=== PATIENT | female | born 1985 | race African-American/Black ===

== ENCOUNTER 2020-07-15 12:41 | Outpatient (CLI) | payer OTHER, SELFPAY ==
--- NOTE | ~2020-07-15 | US_ITS ---
EXAMINATION: US pelvic complete w TV EXAM DATE: 07/15/2020 14:05 INDICATION: Pelvic pain. TECHNIQUE: Pelvic transabdominal and transvaginal sonogram was performed. There are multiple graysca le and Doppler images available for interpretation. There is no prior study for comparison. FINDINGS: Uterus measures 9.7 x 5.5 x 6.9 cm, and is morphologically normal. Endometrial stripe trace sures 7 mm, within normal limits. There are nabothian cysts. There is small free pelvic fluid. Right adnexa: The ovary measures 3.4 x 2.0 x 4.0 cm with multiple peripheral follicles. Ovarian vascu lar flow confirmed. Left adnexa: The ovary measures 3.5 x 2.0 x 2.3 cm with multiple peripheral follicles. Ovarian vascul ar flow confirmed. IMPRESSION: Multiple small ovarian follicles, correlate for possible polycystic ovarian disease. Reviewed, dictated and finalized at location B. [employer]DER [employer]IPPER
--- NOTE | ~2020-07-15 | US_ITS ---
EXAMINATION: US thyroid EXAM DATE: 07/15/2020 14:05 INDICATION: Thyromegaly. TECHNIQUE: Multiple grayscale and Doppler images of the thyroid were obtained (by a technologist who performed the scan) and subsequently reviewed. Individual nodules and recommendations may be reporte d in accordance with TI-RADS system as designated by the 2017 ACR White Paper TI-RADS committee. The re is no prior study for comparison. FINDINGS: Right thyroid lobe measures 5.3 x 1.9 x 1.9 cm, the left measuring 5.4 x 2.0 x 2.7 cm, mild thyromega ly. Relatively homogeneous echogenicity with hypervascular parenchyma. The isthmus is 5 mm in thickne ss. Possible focal left thyroid lobe nodule measuring 9 x 4 x 8 mm, solid (2 points), hypoechoic (2 point s), wider than tall, smooth margin, without echogenic foci, category TR4 for this region. IMPRESSION: 1. Hypervascular goiter. 2. Possible left thyroid 1 cm nodule not likely clinically significant. Reviewed, dictated and finalized at location B. CHAR PULLER
[2020-07-15 14:53] LABS: Thyroid Stimulating Hormone < 0.015 uIU/mL (0.465-4.680)
[2020-07-15 15:05] LABS: Free T4 Free Thyroxine 1.93 ng/mL (0.78-2.19)
== END 2020-07-15 12:42 | disposition home or self-care (01) ==
PROVIDERS: PCP Obstetrics & Gynecology Gynecology; Visit Provider Obstetrics & Gynecology Gynecology
DX: E04.8 Other specified nontoxic goiter (principal); R10.2 Pelvic and perineal pain; R93.89 Abnormal findings on diagnostic imaging of other specified body structures
CPT/HCPCS: 36415; 76536; 76830; 76856; 84439; 84443

== ENCOUNTER 2020-08-13 06:58 | Outpatient (NON) | payer OTHER, SELFPAY ==
[2020-08-13 18:22] LABS: SARS-CoV-2 RNA PCR Positive
== END 2020-08-13 06:59 ==
LOC: ANHCOVIDDT 07:20
PROVIDERS: Visit Provider Physician Assistant
DX: U07.1 COVID-19 (principal)
CPT/HCPCS: 87635; C9803; U0003

== ENCOUNTER → 2020-08-27 14:13 | Outpatient (CLI) | payer OTHER, SELFPAY ==
--- NOTE | ~2020-08-27 | XR_ITS ---
EXAMINATION: XR chest 2V 08/27/2020 14:42 INDICATION: Shortness of breath PROCEDURE: 2 view chest COMPARISON: No prior studies for comparison. FINDINGS: The lungs are clear. The cardiomediastinal silhouette is within normal limits. There are no pleural effusions. There is no pneumothorax suspected. IMPRESSION: 1: NO ACUTE CARDIOPULMONARY DISEASE. Reviewed, dictated and finalized at location A. 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
== END ==
PROVIDERS: Visit Provider Physician Assistant
DX: R06.02 Shortness of breath (principal)
CPT/HCPCS: 71046

== ENCOUNTER 2021-01-23 12:27 | Outpatient (CLI) | payer OTHER, SELFPAY ==
[2021-01-23 12:50] LABS: Hematocrit 38.8 % (37.0-47.0); Hemoglobin 12.7 g/dL (12.0-15.0); Mean Corpuscular HGB Conc 32.7 g/dl (32-36); Mean Corpuscular Hemoglobin 28.3 pg (26-34); Mean Corpuscular Volume 86.4 fl (80-100); Mean Platelet Volume 10.3 fl (7.4-10.4); Platelet Count Result 236 k/mm3 (150-375); Red Blood Count 4.49 M/mm3 (4.2-5.4); White Blood Count 4.4 K/mm3 (4.5-10.0)
[2021-01-23 13:01] LABS: Alanine Aminotransferase 40 U/L (4-35); Albumin Level 4.6 g/dL (3.5-5.1); Alkaline Phosphatase 156 U/L (38-126); Anion Gap 7 mmol/L (8-16); Aspartate Amino Transferase 45 U/L (14-36); Bilirubin,Total 0.3 mg/dL (0.2-1.3); Blood Urea Nitrogen 11 mg/dL (7-17); Calcium 10.5 mg/dL (8.4-10.2); Carbon Dioxide 28 mmol/L (22-30); Chloride 103 mmol/L (98-107); Estimated Glomerular Filt Rate > 60; Glucose 117 mg/dL (65-105); Sodium 138 mmol/L (137-145)
[2021-01-23 13:43] LABS: Free T4 Free Thyroxine 3.96 ng/mL (0.78-2.19)
[2021-01-23 13:57] LABS: Thyroid Stimulating Hormone Reflex < 0.015 uIU/mL (0.465-4.68)
[2021-01-23 13:59] LABS: Eosinophils Absolute Manual 0.08 K/mm3 (0.02-0.5); Eosinophils Percent Manual 2 % (0-4); Lymphocytes Absolute Manual 2.77 K/mm3 (1.1-4.5); Monocytes Absolute Manual 0.17 K/mm3 (0.1-0.90); Monocytes Percent Manual 4 % (3-9); Neutrophils Percent Manual 16 % (46-73); Platelet Estimate Adequate (Adequate); Total Cells Counted 100
[2021-01-23 14:00] LABS: Atypical Lymphocytes Present
[2021-01-23 15:11] LABS: Free T4 Free Thyroxine Reflex 3.95 ng/dL (0.78-2.19)
[2021-01-27 06:08] LABS: Thyroid Peroxidase Antibodies <1 IU/mL (<9)
== END 2021-01-23 12:28 | disposition home or self-care (01) ==
LOC: ANHLAB 12:29
PROVIDERS: PCP Family Medicine; Visit Provider Physician Assistant
DX: E04.9 Nontoxic goiter, unspecified (principal); F41.1 Generalized anxiety disorder; F43.0 Acute stress reaction; G43.909 Migraine, unspecified, not intractable, without status migrainosus; R79.89 Other specified abnormal findings of blood chemistry
CPT/HCPCS: 36415; 80053; 84439; 84443; 85025; 86376

== ENCOUNTER → 2021-03-10 00:12 | Outpatient (CLI) | payer SELFPAY ==
[2021-03-10 17:12] LABS: SARS-CoV-2 RNA PCR Negative
== END ==
PROVIDERS: PCP Family Medicine; Visit Provider Internal Medicine Gastroenterology
DX: Z01.812 Encounter for preprocedural laboratory examination (principal); Z20.822 Contact with and (suspected) exposure to COVID-19
CPT/HCPCS: C9803; U0003; U0005

== ENCOUNTER 2021-03-13 00:11 | Day surgery (SDC) | payer OTHER, SELFPAY ==
[2021-02-26 10:34] VITALS: BMI 23.4
[2021-03-13 11:24] VITALS: BP 125/76; PULSE 90; RESP 16; TEMP 36.7; O2SAT 100
[2021-03-13] MEDS: LACTATED RINGERS 1,000 ML 150 ML IV CONT (11:27)
--- NOTE | 2021-03-13 12:00 | PM.HPGS ---
History of Present Illness History of Present Illness Consent: Risks, benefits, and alternatives have been discussed and questions answered. Patient agrees to proceed with procedure. Chief complaint: dysphagia Narrative: Mary Esposito is a 35 year old female with intermittent difficulty swallowing and sore throat but now better, never had egd Review of Systems Constitutional: Constitutional: Denies headache(s) and Denies weakness Eyes: Eyes: Denies blurry vision ENT: Reports Normal hearing present, Denies headache(s) and Denies neck pain Cardiovascular: Cardiovascular: Denies chest pain and Denies dyspnea Respiratory: Respiratory: Denies dyspnea Gastrointestinal: Gastrointestinal: Reports no additional gastrointestinal complaints Genitourinary: Genitourinary: Denies dysuria Musculoskeletal: Musculoskeletal: Denies neck pain Integumentary/Breasts: Skin/Breast: Denies dry skin Neurologic: Reports Normal hearing present, Denies headache(s) and Denies weakness Psychiatric: Psychiatric: Denies anxiety Endocrine: Endocrine: Denies change in body appearance Hematologic/Lymphatic: Hematologic/Lymphatic: Denies easy bleeding Allergic/Immunologic: Allergic/Immunologic: Denies urticaria PMFSH Past Medical History Medical History (Updated 03/13/21 @ 12:01 by Paul Lowe MD) Chiari malformation type I Migraines Throat burning Family History Family History Father Family history of alcoholism Family history of liver disease, Onset Age: 46 Patient's father is Mother Carcinoma of colon, Onset Age: 33 Sibling Family history of malignant neoplasm of testis, Onset Age: 28 Social History Social History (Updated 01/12/21 @ 15:15 by Ev Stern [facility]) Social History: Smoking status: Never smoker Second hand tobacco smoke exposure: No Alcohol intake: current Drinks per week: 2 Alcohol use details: Socially Substance use: never Substance use type: does not use Living arrangements: with family Gender identity (if verbalized by the patient): Female Spiritual care concerns: No Meds Home Medications and Allergies Home Medications Medication Instructions Recorded Confirmed Type alprazolam 0.25 mg tablet 0.25 mg PO BID PRN #14 tablet 01/12/21 03/13/21 Rx methimazole 5 mg tablet 5 mg PO DAILY #30 tablet 01/30/21 03/13/21 Rx butalbital 50 mg-acetaminophen 325 1 cap PO Q8H PRN #60 cap 03/01/21 Rx mg-caffeine 40 mg-codeine 30 mg cap Allergies Allergy/AdvReac Type Severity Reaction Status Date / Time iodine Allergy Intermediate SWELLING Verified 03/13/21 11:22 Vital Signs Vital Signs - 24 hr 03/13/21 11:24 Temperature 98.1 F Pulse Rate 90 Respiratory Rate 16 Blood Pressure 125/76 Pulse Oximetry 100 Exam Const: General: comfortable and no acute distress HENMT: General nose exam: Normal nares present Eyes: General: appearance normal, both eyes and all related structures Neck: Neck: no JVD Resp: Auscultation: clear to auscultation bilaterally Cardio: Rate: regular rate Rhythm: regular rhythm GI: Inspection: non-distended GI Palp: Yes Soft to palpation Skin: General skin exam: normal color Neuro: General: gait normal Speech: normal speech Extrem: General: normal to inspection Psych: Mental Status: mental status grossly normal Assessment and Plan Assessment and plan (1) Throat burning: Code(s): R07.0 - Pain in throat Status: Acute Assessment and Plan: egd with bx
--- NOTE | 2021-03-13 12:02 | WPDANESEPPF ---
Anes - Initial Pre Proc Eval Procedure: Operation Date: 03/13/21 12:15 Proposed Procedures p Esophagogastroduodenoscopy - Paul Lowe MD Date/Time: 03/13/21 12:02 Surgeon: Paul Lowe MD Pre Op Diagnosis: dysphagia Patient Data Age: 35 Gender: F Height: 1.6 m Weight: 62.6 kg Last Vital Signs Temp 98.1 F 03/13/21 11:24 Pulse 90 03/13/21 11:24 Resp 16 03/13/21 11:24 BP 125/76 03/13/21 11:24 Pulse Ox 100 03/13/21 11:24 Allergies Allergy/AdvReac Type Severity Reaction Status Date / Time iodine Allergy Intermediate SWELLING Verified 03/13/21 11:22 Home Medications Medication Instructions Recorded Confirmed Type alprazolam 0.25 mg tablet 0.25 mg PO BID PRN #14 tablet 01/12/21 03/13/21 Rx methimazole 5 mg tablet 5 mg PO DAILY #30 tablet 01/30/21 03/13/21 Rx butalbital 50 mg-acetaminophen 325 1 cap PO Q8H PRN #60 cap 03/01/21 Rx mg-caffeine 40 mg-codeine 30 mg cap Patient hx anesthesia problems: none Family hx anesthesia problems: none PMFSH Past Medical History Medical History (Updated 03/13/21 @ 12:01 by Paul Lowe MD) Chiari malformation type I Migraines Throat burning Family History Family History Father Family history of alcoholism Family history of liver disease, Onset Age: 46 Patient's father is Mother Carcinoma of colon, Onset Age: 33 Sibling Family history of malignant neoplasm of testis, Onset Age: 28 Social History Social History (Updated 01/12/21 @ 15:15 by Ev Stern CMA) Social History: Smoking status: Never smoker Second hand tobacco smoke exposure: No Alcohol intake: current Drinks per week: 2 Alcohol use details: Socially Substance use: never Substance use type: does not use Living arrangements: with family Gender identity (if verbalized by the patient): Female Spiritual care concerns: No Anes - Eval Final PreProcedure Day of Procedure 03/13/21 12:02 Patient weight: normal Heart: regular rate and rhythm Lungs: clear to auscultation Airway: Mallampati scale class II Neurological: alert and oriented Last oral intake: >/= 8 hours ASA classification: II Emergent: no Anesthetic plan: proceed Anesthesia type and monitoring: general GIVS and standard monitoring Informed Consent: The patient's anesthetic plan and its attendant risks and benefits were discussed with the patient/family/POA. Questions were solicited and answers provided to the satisfaction of the patient/family/POA.
[2021-03-13 12:21] VITALS: BP 110/56; PULSE 97; RESP 18; O2SAT 100
[2021-03-13 12:31] VITALS: BP 101/51; PULSE 82; RESP 16; O2SAT 100
[2021-03-13 12:41] VITALS: BP 115/67; PULSE 78; RESP 19; O2SAT 100
== END 2021-03-13 12:45 | disposition home or self-care (01) ==
PROVIDERS: PCP Family Medicine; Visit Provider Internal Medicine Gastroenterology
PROC: 0DJ08ZZ Inspection of Upper Intestinal Tract, Via Natural or Artificial Opening Endoscopic (ICD-10-PCS; CPT 43235; principal; 2021-03-13 12:15)
DX: F45.8 Other somatoform disorders (principal); R07.0 Pain in throat; G93.5 Compression of brain
CPT/HCPCS: 43239; 88305; J2405; J2704; J7120

== ENCOUNTER 2021-07-16 00:18 | Day surgery (SDC) | payer OTHER, SELFPAY ==
[2021-07-08 14:13] VITALS: BMI 23.3
[2021-07-16] VITALS (9 sets, daily range): BP systolic 128–152; BP diastolic 68–82; PULSE 93–118; RESP 13–20; TEMP 37.2; O2SAT 99–100; BMI 24.7
[2021-07-16] MEDS: LACTATED RINGERS 1,000 ML 30 ML IV CONT ×2 (14:00→15:46)
--- NOTE | 2021-07-16 14:12 | P.PNAN_ITS ---
Anes - Initial Pre Proc Eval Procedure: Operation Date: 07/16/21 15:00 Proposed Procedures p Bilateral Breast Augmentation - Fred Baugh MD Date/Time: 07/16/21 14:12 Surgeon: Fred Baugh MD Pre Op Diagnosis: micromastia Patient Data Age: 35 Gender: F Height: 1.6 m Weight: 63.2 kg Last Vital Signs Pulse 93 07/16/21 13:15 Resp 16 07/16/21 13:15 BP 135/73 07/16/21 13:15 Pulse Ox 100 07/16/21 13:15 Allergies Allergy/AdvReac Type Severity Reaction Status Date / Time iodine Allergy Intermediate SWELLING Verified 07/16/21 13:27 Home Medications Medication Instructions Recorded Confirmed Type butalbital 50 mg-acetaminophen 300 1 cap PO Q8H PRN #30 cap 06/25/21 07/08/21 Rx mg-caffeine 40 mg-codeine 30 mg cap hydroxyzine HCl 25 mg tablet 25 mg PO TID PRN #90 tablet 06/25/21 07/08/21 Rx methimazole 10 mg tablet 10 mg PO DAILY #30 tablet 06/25/21 07/08/21 Rx docusate sodium 100 mg capsule 100 mg PO DAILY #14 cap 07/14/21 Rx ondansetron HCl 4 mg tablet 4 mg PO Q8H #21 tablet 07/14/21 Rx carisoprodol 350 mg tablet 350 mg PO TID PRN #21 tablet 07/15/21 07/15/21 Rx oxycodone-acetaminophen 5 mg-325 1 tablet PO Q6H PRN #15 tablet 07/15/21 07/15/21 Rx mg tablet Patient hx anesthesia problems: none Family hx anesthesia problems: none Results Review: All pre-operative results and documents have been reviewed as part of the pre-operative evaluation. [facility] Past Medical History Medical History (Updated 07/16/21 @ 14:14 by Farhad Henriquez MD) Chiari malformation type I Graves disease Hyperthyroidism Migraines Throat burning Family History Family History Father Family history of alcoholism Family history of liver disease, Onset Age: 46 Patient's father is Mother Carcinoma of colon, Onset Age: 33 Sibling Family history of malignant neoplasm of testis, Onset Age: 28 Social History Social History Social History: Smoking status: Never smoker Second hand tobacco smoke exposure: No Alcohol intake: current Alcohol use details: Socially Substance use: never Substance use type: does not use Living arrangements: with family Gender identity (if verbalized by the patient): Female Sexual Orientation (if Verbalized by the Patient): Straight or Heterosexual Spiritual care concerns: No Anes - Eval Final PreProcedure Day of Procedure 07/16/21 14:12 Patient weight: normal Heart: regular rate and rhythm Lungs: clear to auscultation and normal air movement Airway: Mallampati scale class II Neurological: alert and oriented Last oral intake: >/= 8 hours ASA classification: II Emergent: no Anesthetic plan: proceed Anesthesia type and monitoring: general Results Review: All pre-operative results and documents have been reviewed as part of the pre-operative evaluation. Informed Consent: The patient's anesthetic plan and its attendant risks and benefits were discussed with the patient/family/POA. Questions were solicited and answers provided to the satisfaction of the patient/family/POA.
--- NOTE | 2021-07-16 14:12 | WPDHPUPDATE1 ---
History and Physical Update Update Date/Time: 07/16/21 14:12 History and Physical has been reviewed, including an updated exam of the patient. There are NO changes in the patient's condition. Risks, benefits, and alternatives have been discussed and questions answered. Patient agrees to proceed with procedure.
--- NOTE | 2021-07-16 14:12 | W.PM.PROC2 ---
Procedure Note - Detailed Date of Procedure 07/16/21 Pre-op Diagnosis micromastia Post-op Diagnosis same Procedure Performed Bilateral Augmentation Mammaplasty Surgeon Ferd Baugh MD Anesthesia general Findings Bilateral Dual Plane 2 Augmentation Mammaplasty [facility] Soft Touch Silicone implants 405 cc Right - REF# [id number] SN [id number] Left - REF# [id number] SN [id number] Description of Procedure She is here today for bilateral breast augmentation. Previously and again today the risks, benefits, alternatives were discussed in extensive detail. I wanted her to be very realistic about the risks involved as well as expectations. We discussed aftercare and what to monitor for. Made sure answered all of her questions to her satisfaction today and consent was obtained. Marked in the preoperative holding area with their verification. The patient was taken to the operating room placed supine on the operating table. Anesthesia was provided by anesthesiology. A surgical time-out was taken. We cleansed the skin and 1% lidocaine and 0.25% Marcaine with epinephrine was used anesthetize as a field block. She was prepped and draped in a standard sterile fashion. Tegaderm nipple Holguin were placed. A 15 blade used to make an incision along the inframammary fold. Dissection was continued at 45 degree angle until the chest wall as identified. I incised the pectoralis major along its inferior border and completely released the inferior border leaving the medial border intact. I created a subpectoral pocket in the appropriate dimensions based on our preoperative planning for the implant. I then copiously irrigated with saline solution and verified a strict hemostasis. Next I used phase one solution to irrigate the pocket and allowed it to sit in the pocket. I washed my gloves with it was well. We washed the implant immediately upon opening it with this solution and only opened it when we needed it. I used implant funnel and no-touch technique. The implant was introduced into the pocket using the funnel. Having verified positioning of the implant this was closed using 2-0 Vicryl followed by 3-0 Monocryl in a running subcuticular 4-0 Monocryl followed by tissue glue. Fluffs, Arvind wrap, and surgical bra were placed. Patient was awoke and taken to PACU without difficulty. All instrument sponge counts were correct at the end of the case. Estimated Blood Loss 20 Drains No Packing No Pathology none sent Complications No immediate complications Condition stable Disposition PACU
[2021-07-16] MEDS: ceFAZolin 2 GM/D5W 50 ML 2 GM/50 ML BAG IVPB (14:40)
[2021-07-16] MEDS: LIDO 1%/EPINEPHRINE 1:100,000 50 ML VIAL 30 ML INFILTRATE (14:40)
[2021-07-16] MEDS: TRANEXAMIC ACID 1,000MG/ISO100 1,000 MG/100 ML BAG 200 MG IVPB (14:49)
--- NOTE | 2021-07-16 15:30 | SUR.OPER ---
breast implants [place] Soft Touch Breast Implant [facility] 405cc, ref [facility]-405, sn [id number], sn [id number].
--- NOTE | 2021-07-16 15:33 | SUR.OPER ---
BILATERAL BREAST IMPLANT EXPIRATION DATE 2026-01-05 (SAME EXPIRATION DATES)
[2021-07-16] MEDS: fentaNYL CITRATE INJ (*CRX) 100 MCG/2 ML VIAL 25 MCG IV PUSH ×4 (16:09→16:31)
[2021-07-16] MEDS: oxyCODONE HCL (*CRX) 5 MG TAB IR PO (17:07)
== END 2021-07-16 17:48 | disposition home or self-care (01) ==
PROVIDERS: PCP Family Medicine; Visit Provider Surgery Plastic and Reconstructive Surgery
PROC: (CPT 19325; principal; 2021-07-16 15:00)
DX: Z41.1 Encounter for cosmetic surgery (principal); N64.82 Hypoplasia of breast; G93.5 Compression of brain; E05.00 Thyrotoxicosis with diffuse goiter without thyrotoxic crisis or storm
CPT/HCPCS: 19325; A9270; J0690; J1100; J1580; J2250; J2405; J2704; J3010; J7120

== ENCOUNTER → 2021-10-06 08:45 | Outpatient (CLI) | payer OTHER, SELFPAY ==
[2021-10-06 19:07] LABS: SARS-CoV-2 RNA PCR Negative
== END ==
PROVIDERS: PCP Family Medicine; Visit Provider Nurse Practitioner Gerontology
DX: R68.89 Other general symptoms and signs (principal); Z20.822 Contact with and (suspected) exposure to COVID-19
CPT/HCPCS: C9803; U0003; U0005

== ENCOUNTER 2022-03-23 13:35 | Outpatient (CLI) | payer OTHER, SELFPAY ==
[2022-03-23 13:49] LABS: Basophils Percent Auto 0.8 % (0.2-1.2); Eosinophils Percent Auto 0.2 % (0-4.4); Hematocrit 37.2 % (37.0-47.0); Hemoglobin 12.2 g/dL (12.0-15.0); Lymphocytes Absolute Auto 3.02 K/mm3 (0.9-3.2); Lymphocytes Percent Auto 57.9 % (18.3-44.2); Mean Corpuscular HGB Conc 32.8 g/dl (32-36); Mean Corpuscular Hemoglobin 28.8 pg (26-34); Mean Corpuscular Volume 87.9 fl (80-100); Mean Platelet Volume 9.9 fl (7.4-10.4); Monocytes Absolute Auto 0.5 K/mm3 (0.1-0.6); Monocytes Percent Auto 9.8 % (2.6-8.5); Neutrophils Absolute Auto 1.6 K/mm3 (1.3-6.7); Neutrophils Percent Auto 31.3 % (45.5-73.1); Platelet Count Result 276 k/mm3 (150-375); Red Blood Count 4.23 M/mm3 (4.2-5.4); White Blood Count 5.2 K/mm3 (4.5-10.0)
[2022-03-23 14:48] LABS: Free T4 Free Thyroxine 3.14 ng/mL (0.78-2.19)
[2022-03-23 16:17] LABS: Alanine Aminotransferase 28 U/L (6-35); Albumin Level 4.5 g/dL (3.5-5.1); Alkaline Phosphatase 160 U/L (38-126); Anion Gap 9 mmol/L (8-16); Aspartate Amino Transferase 25 U/L (14-36); Bilirubin,Total 0.2 mg/dL (0.2-1.3); Blood Urea Nitrogen 14 mg/dL (7-17); Calcium 9.7 mg/dL (8.4-10.2); Carbon Dioxide 22 mmol/L (22-30); Chloride 107 mmol/L (98-107); Estimated Glomerular Filt Rate > 60; Glucose 104 mg/dL (65-110); Potassium 4.3 mmol/L (3.4-5.0); Sodium 138 mmol/L (137-145)
[2022-03-23 16:51] LABS: Thyroid Stimulating Hormone < 0.015 uIU/mL (0.465-4.680); Total Triiodothyronine (T3) 2.39 NG/ML (0.97-1.69)
== END 2022-03-23 13:36 | disposition home or self-care (01) ==
PROVIDERS: PCP Family Medicine; Visit Provider Family Medicine
DX: E05.00 Thyrotoxicosis with diffuse goiter without thyrotoxic crisis or storm (principal); G43.909 Migraine, unspecified, not intractable, without status migrainosus; G89.29 Other chronic pain
CPT/HCPCS: 36415; 80053; 84439; 84443; 84480; 85025

== ENCOUNTER → 2022-04-05 09:20 | Outpatient (CLI) | payer OTHER, SELFPAY ==
--- NOTE | ~2022-04-05 | US_ITS ---
EXAMINATION: US pelvic complete w TV DATE: 04/05/2022 10:30 INDICATION: Bilateral pelvic pain Comparison:No prior studies for comparison. TECHNIQUE: Multiple transabdominal and endovaginal sonographic images of the pelvis performed. FINDINGS: The uterus measures 9.5 x 6 x 6.4 cm. There is a uterine fibroid posteriorly measuring 2.3 x 1.9 x 1.5 cm. There is a nabothian cysts. The endometrial complex measures 10 mm. The right ovary measures 4.6 x 2.4 x 2.6 cm and the left ovary measures 3.5 x 1.7 x 1.8 cm. There is a right ovary cyst measuring 1.7 cm. There are small follicles in each ovary. Normal doppler signal i n both ovaries. There is no free fluid in the pelvis. There are no abnormal masses seen on either side. IMPRESSION: 1. Uterine fibroid located posteriorly measuring 2.3 cm maximum dimension. 2: Right ovarian cyst measuring 1.7 cm. Reviewed, dictated and finalized at location A.
== END ==
LOC: EXPGOSH 04-06 10:52 → EXPGOSHRAD 04-09 14:42
PROVIDERS: PCP Family Medicine; Visit Provider Nurse Practitioner
DX: R10.2 Pelvic and perineal pain (principal); N83.201 Unspecified ovarian cyst, right side; D25.9 Leiomyoma of uterus, unspecified
CPT/HCPCS: 76830; 76856

== ENCOUNTER 2022-06-09 15:26 | Outpatient (CLI) | payer OTHER, SELFPAY ==
--- NOTE | ~2022-06-09 | MR_ITS ---
EXAMINATION: MR brain/brain stem wo con DATE: 06/09/2022 16:18 INDICATION: Headache. TECHNIQUE: Magnetic resonance imaging (MRI) of the brain and brainstem was performed without intraven ous contrast. COMPARISON: Brain MRI 10/12/2017 FINDINGS: The cerebellar tonsils extend 6 mm inferior to foramen magnum, consistent with grade 1 malf ormation. There is no intracranial hemorrhage, acute infarction, or abnormal intracranial mass lesion . There are scattered areas of nonspecific increased T2-weighted signal intensity in the cerebral whi te matter, which is within normal limits for the patient's age. The ventricles are normal in size. Th e paranasal sinuses are clear. The orbits are normal. The mastoid air cells are normal. . IMPRESSION: 1. Chiari 1 malformation. Reviewed, dictated and finalized at location A. IMPRESSION: 1. Chiari 1 malformation.
== END 2022-06-09 15:27 ==
PROVIDERS: PCP Family Medicine; Visit Provider Family Medicine
DX: G93.5 Compression of brain (principal)
CPT/HCPCS: 70551

== ENCOUNTER 2022-06-11 14:06 | Emergency (ER) | payer OTHER, SELFPAY ==
[2022-06-11 14:23] VITALS: BP 123/64; PULSE 87; RESP 16; TEMP 36.7; O2SAT 100
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
== END 2022-06-11 15:10 | disposition short-term general hospital (02) ==
PROVIDERS: Emergency Provider Nurse Practitioner; PCP Family Medicine
DX: R51.9 Headache, unspecified (principal); M54.6 Pain in thoracic spine; V43.52XA Car driver injured in collision with other type car in traffic accident, initial encounter; G93.5 Compression of brain; E05.00 Thyrotoxicosis with diffuse goiter without thyrotoxic crisis or storm; E05.90 Thyrotoxicosis, unspecified without thyrotoxic crisis or storm
CPT/HCPCS: 99212; G0463

== ENCOUNTER 2022-06-11 16:08 | Emergency (ER) | payer OTHER, SELFPAY ==
--- NOTE | ~2022-06-11 | CT_ITS ---
EXAMINATION: CT brain wo con INDICATION: Headache COMPARISON: None TECHNIQUE: Standard unenhanced head CT. The dose-length product (DLP) was 605.33 mGy-cm. The mA was a djusted according to patient size. Iterative reconstruction technique was employed. FINDINGS: There is no intracranial hemorrhage, acute infarction, or abnormal mass lesion. The ventric les are normal. There is no abnormal mass effect or midline shift. The vyas-white matter differentiat ion is normal. The basal cisterns are patent. The orbits are normal. The paranasal sinuses, mastoids and calvarium are normal. IMPRESSION: 1. No acute intracranial abnormality. Reviewed, dictated and finalized at location A.
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
--- NOTE | ~2022-06-11 | CT_ITS ---
EXAMINATION: CT cervical spine wo con DATE: 06/11/2022 17:05 INDICATION: Neck pain TECHNIQUE: Computed tomography (CT) of the cervical spine was performed without intravenous contrast. The dose-length product (DLP) was 228.12 mGy-cm. Automated exposure control and iterative reconstruc tion technique were employed. COMPARISON: None FINDINGS: There is reversal of the normal cervical lordosis. There is no fracture, dislocation, or avila bluxation. The vertebral body heights, alignment, and intervertebral disc spaces are normal. The para vertebral soft tissues are unremarkable. IMPRESSION: 1. No acute osseous abnormality. Reviewed, dictated and finalized at location A.
[2022-06-11 16:14] VITALS: BP 136/72; PULSE 97; RESP 16; TEMP 36.6; O2SAT 98
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
[2022-06-11] MEDS: diazePAM INJ (*CRX) 10 MG/2 ML SYRINGE 5 MG IM (16:38)
== END 2022-06-11 17:56 | disposition home or self-care (01) ==
LOC: ANHED 17:52
PROVIDERS: Emergency Provider Emergency Medicine; PCP Family Medicine
DX: S09.90XA Unspecified injury of head, initial encounter (principal); S16.1XXA Strain of muscle, fascia and tendon at neck level, initial encounter; V49.40XA Driver injured in collision with unspecified motor vehicles in traffic accident, initial encounter; E05.00 Thyrotoxicosis with diffuse goiter without thyrotoxic crisis or storm; G93.5 Compression of brain
CPT/HCPCS: 70450; 72125; 72128; 81025; 96372; 99284; J3360

== ENCOUNTER 2022-06-14 11:33 | Outpatient (CLI) | payer OTHER, SELFPAY ==
[2022-06-14 13:18] LABS: Thyroid Stimulating Hormone < 0.015 uIU/mL (0.465-4.680); Total Triiodothyronine (T3) 2.59 NG/ML (0.97-1.69)
[2022-06-14 13:38] LABS: Free T4 Free Thyroxine 3.23 ng/mL (0.78-2.19)
== END 2022-06-14 11:34 | disposition home or self-care (01) ==
LOC: ANHLAB 11:35
PROVIDERS: PCP Family Medicine; Visit Provider Physician Assistant
DX: E03.9 Hypothyroidism, unspecified (principal)
CPT/HCPCS: 36415; 84439; 84443; 84480

== ENCOUNTER 2022-09-30 07:00 | Outpatient (CLI) | payer OTHER, SELFPAY ==
[2022-10-01 11:45] LABS: Total Triiodothyronine (T3) 2.28 NG/ML (0.97-1.69)
[2022-10-05 21:18] LABS: Prolactin 16.1 ng/mL (***)
== END 2022-09-30 07:01 | disposition home or self-care (01) ==
PROVIDERS: PCP Family Medicine; Visit Provider Family Medicine
DX: G89.29 Other chronic pain (principal); R51.9 Headache, unspecified; R79.89 Other specified abnormal findings of blood chemistry; E03.9 Hypothyroidism, unspecified; Z12.11 Encounter for screening for malignant neoplasm of colon
CPT/HCPCS: 36415; 84146; 84480

== ENCOUNTER 2022-11-23 21:22 | Emergency (ER) | payer OTHER, SELFPAY ==
--- NOTE | ~2022-11-23 | XR_ITS ---
EXAMINATION: XR chest 2V Exam Date/Time: 11/23/2022 22:01 CDT HISTORY: L.SIDE CHEST ARM PAIN, NECK PAIN FOR 1 DAY Comparison: 08/27/2020. RESULT: Lines, tubes, and devices: Bilateral breast augmentation. Lungs and pleura: Clear. Cardiomediastinal silhouette: Stable. Other: No acute osseous or upper abdominal finding. IMPRESSION: No acute cardiopulmonary process. Reviewed, dictated and finalized at location K.
--- NOTE | 2022-11-23 21:26 | ECG_ITS ---
Measurements Intervals [place] Rate: 85 P: 62 HI: 180 QRS: 32 QRSD: 89 T: 18 QT: 359 QTc: 428 Interpretive Statements SINUS RHYTHM NONSPECIFIC T-WAVE ABNORMALITY- ANTERIOR LEADS BORDERLINE ECG NO PREVIOUS ECG AVAILABLE FOR COMPARISON Electronically Signed On 11-24-2022 6:41:56 CDT by Dave Villarreal D.O.
[2022-11-23 21:56] VITALS: BP 128/83; PULSE 84; RESP 16; TEMP 37.1; O2SAT 100
[2022-11-23 23:36] VITALS: BP 124/66; PULSE 78; RESP 16; O2SAT 100
--- NOTE | 2022-11-24 01:24 | PC.NURSE ---
0120 - Attempted to take labs, pt discovered gone.
== END 2022-11-24 01:24 | disposition left against medical advice (07) ==
LOC: ANHED 11-24 01:31
PROVIDERS: Emergency Provider Emergency Medicine
DX: R07.9 Chest pain, unspecified (principal)
CPT/HCPCS: 71046; 93005; 99199

== ENCOUNTER 2022-12-01 03:12 | Emergency (ER) | payer OTHER, SELFPAY ==
[2022-12-01] VITALS (11 sets, daily range): BP systolic 108–148; BP diastolic 63–83; PULSE 68–89; RESP 16–23; TEMP 36.9; O2SAT 98–100
--- NOTE | ~2022-12-01 | XR_ITS ---
Clinical Indication: Chest pain PA and lateral views of the chest: Comparison: 11/23/2022 Findings: The lungs are clear, without evidence of focal consolidation or pleural effusion. Cardiome diastinal silhouette is within normal limits. Bones and soft tissues are unremarkable. Impression: Normal chest. Reviewed, dictated and finalized at location . Impression: Normal chest.
--- NOTE | 2022-12-01 03:26 | ECG_ITS ---
Measurements Intervals [place] Rate: 76 P: 54 HI: 182 QRS: 28 QRSD: 96 T: 27 QT: 383 QTc: 433 Interpretive Statements SINUS RHYTHM INCOMPLETE RIGHT BUNDLE BRANCH BLOCK BASELINE ARTIFACT- III, AVF, V3-V5 BORDERLINE ECG COMPARED TO ECG 11/23/2022 21:55:35 NO SIGNIFICANT CHANGES Electronically Signed On 12-01-2022 6:42:16 CDT by Dave Villarreal D.O.
--- NOTE | 2022-12-01 05:10 | ED.CHESTPAIN ---
HPI - Chest Pain General Chief Complaint: Chest Pain Stated Complaint: shoulder pain Time Seen by Provider: 12/01/22 04:22 History of Present Illness HPI narrative: This is a 37-year-old female with past medical history of hypothyroidism, who presents the emergency department complaining of chest pain for the past 6 hours. She states the pain is sharp, rated 6/10, located in the left upper chest with radiation to the left shoulder. It is exacerbated by deep breathing and lying on either side and has no obvious alleviating factors. Related Data Home Medications Medication Instructions Recorded Confirmed methimazole 10 mg tablet 10 mg PO DAILY 11/25/22 11/25/22 Allergies Allergy/AdvReac Type Severity Reaction Status Date / Time iodine Allergy Intermediate SWELLING Verified 11/25/22 15:02 shellfish derived Allergy Intermediate Swelling Verified 11/25/22 15:02 Review of Systems Review of Systems: CONSTITUTIONAL: Denies fever, chills, or sweats. EYES: Denies visual changes, redness, or discharge. ENT: Denies rhinorrhea, congestion, sore throat, or otalgia. CARDIOVASCULAR: Left-sided chest pain denies palpitations, or edema. RESPIRATORY: Denies cough or dyspnea. GASTROINTESTINAL: Denies abdominal pain, nausea, vomiting, or diarrhea. GENITOURINARY: Denies dysuria or hematuria. SKIN: Denies rash or itching. MUSCULOSKELETAL: Denies back pain, joint pain, or myalgia. NEUROLOGIC: Denies headache, numbness, dizziness, or weakness. PSYCHIATRIC: Denies anxiety or depression. [facility] Past Medical History Medical History Acute sore throat Elevated prolactin level Graves disease Hyperthyroidism Laryngitis Pharyngitis Tension headache Surgical History Surgical History H/O breast augmentation Family History Family History Father Family history of alcoholism Family history of liver disease, Onset Age: 46 Patient's father is Mother Carcinoma of colon, Onset Age: 33 Sibling Family history of malignant neoplasm of testis, Onset Age: 28 Social History Social History Social History: Smoking status: Never smoker Second hand tobacco smoke exposure: No Alcohol intake: current Alcohol use details: Socially Substance use: never Substance use type: does not use Lack of Transportation: No Lack of Food: Never True Current Housing: I Have Housing Concerned About Future Housing: No Difficulty Paying Gas/Electric Bills: No Difficulty Paying for Meds: No Currently Unemployed: No Education: Decline to Answer Difficulty w/ Childcare or Family Care: No Living arrangements: with family Occupation/Education: occupation Gender identity (if verbalized by the patient): Female Sexual Orientation (if Verbalized by the Patient): Straight or Heterosexual Spiritual care concerns: No Exam Narrative: GENERAL: Well-appearing, well-nourished, and in no acute distress. HEAD: Normocephalic, atraumatic. EYES: PERRLA and EOMI. ENT: Nares clear, no rhinorrhea or epistaxis. Mucous membranes moist. Oropharynx without tonsillar hypertrophy exudate or other lesions. NECK: Supple. No adenopathy or masses. No carotid bruits or JVD CHEST: Clear to auscultation. No respiratory distress. No wheezes rales or rhonchi. Nontender to palpation HEART: Regular rate and rhythm. No murmur heard. Normal peripheral pulses. ABDOMEN: Soft, nontender, nondistended, normal active bowel sounds. EXTREMITIES: Normal range of motion. No edema. No noted tenderness with palpation of the left shoulder or with range of motion of the left shoulder SKIN: Warm, dry, no rash. NEURO: No focal deficits. Alert and oriented x3. PSYCH: Normal mood and affect. Course Course Emergency C
[2022-12-01 06:13] LABS: Basophils Percent Auto 0.3 % (0.2-1.2); Eosinophils Absolute Auto 0.1 K/mm3 (0-0.3); Eosinophils Percent Auto 1.1 % (0-4.4); Hemoglobin 11.1 g/dL (12.0-15.0); Immature Granulocyte Absolute 0.02 K/mm3 (0.00-0.031); Immature Granulocyte Percent A 0.3 % (0-0.5); Lymphocytes Absolute Auto 3.38 K/mm3 (0.9-3.2); Lymphocytes Percent Auto 47.9 % (18.3-44.2); Mean Corpuscular HGB Conc 33.6 g/dl (32-36); Mean Corpuscular Hemoglobin 29.3 pg (26-34); Mean Corpuscular Volume 87.1 fl (80-100); Mean Platelet Volume 9.9 fl (7.4-10.4); Monocytes Absolute Auto 0.7 K/mm3 (0.1-0.6); Monocytes Percent Auto 10.2 % (2.6-8.5); Neutrophils Absolute Auto 2.8 K/mm3 (1.3-6.7); Neutrophils Percent Auto 40.2 % (45.5-73.1); Platelet Count Result 272 k/mm3 (150-375); Red Blood Count 3.79 M/mm3 (4.2-5.4); Red Cell Distribution Width 12.3 % (11.5-14.5); White Blood Count 7.1 K/mm3 (4.5-10.0)
[2022-12-01 06:20] LABS: Alanine Aminotransferase 25 U/L (6-35); Albumin Level 4.1 g/dL (3.5-5.1); Alkaline Phosphatase 106 U/L (38-126); Anion Gap 4 mmol/L (8-16); Aspartate Amino Transferase 25 U/L (14-36); Bilirubin,Total 0.5 mg/dL (0.2-1.3); Blood Urea Nitrogen 10 mg/dL (7-17); Calcium 9.3 mg/dL (8.4-10.2); Carbon Dioxide 26 mmol/L (22-30); Chloride 108 mmol/L (98-107); Estimated CRCL calculation 129 ml/min; Estimated Glomerular Filt Rate > 60; Glucose 94 mg/dL (65-110); Sodium 138 mmol/L (137-145)
[2022-12-01 06:31] LABS: Troponin I < 0.012 ng/mL (0.000-0.034)
== END 2022-12-01 07:42 | disposition home or self-care (01) ==
PROVIDERS: Emergency Provider Preventive Medicine Aerospace Medicine; PCP Family Medicine
DX: R07.89 Other chest pain (principal); M25.512 Pain in left shoulder; E05.00 Thyrotoxicosis with diffuse goiter without thyrotoxic crisis or storm
CPT/HCPCS: 36415; 71046; 80053; 84484; 85025; 93005; 96365; 99284; J0131

== ENCOUNTER → 2022-12-02 07:14 | Outpatient (CLI) | payer OTHER, SELFPAY ==
--- NOTE | ~2022-12-02 | MR_ITS ---
MRI of the cervical spine Clinical History: Neck pain Technique: Axial T2-weighted and gradient images, and sagittal T1-weighted, T2-weighted, and STIR xochitl ges were acquired. Findings: There is straightening of the normal cervical lordosis. No fracture or subluxations identif ied. There is mild diffuse T1 hypointense marrow signal, which could reflect underlying anemia. No fo arley bone marrow signal abnormality seen. No significant disc bulge or herniation seen at any cervical level. There is no spinal canal stenosis , cord compression, or neural foraminal narrowing in the cervical spine. No epidural mass or collecti on seen. No abnormal signal seen in the spinal cord. Paravertebral soft tissues are unremarkable. The cerebell ar tonsils are mildly low lying, protruding approximately 5 mm through the foramen magnum. Impression: Mild diffuse T1 hypointense marrow signal suggests extensive red marrow conversion due to underlying anemia. Correlate clinically. Low-lying cerebellar tonsils. No other significant findings. Reviewed, dictated and finalized at location . Impression: Mild diffuse T1 hypointense marrow signal suggests extensive red marrow convers ion due to underlying anemia. Correlate clinically. Low-lying cerebellar tonsils. No other significant findings.
--- NOTE | ~2022-12-02 | MR_ITS ---
MRI of the lumbar spine Clinical History: Back pain Technique: Axial T2-weighted images, and sagittal T1-weighted, T2-weighted, and T2 fat-sat images wer e acquired. Findings: There is no fracture or subluxation of the lumbar spine. Vertebral bodies maintain normal h eight and alignment. No bone marrow signal abnormality seen. At L1-L2, there is no disc bulge or herniation. There is minimal facet joint hypertrophy. No spinal c anal stenosis or neural foraminal narrowing. At L2-L3, there is minimal facet joint hypertrophy. No disc bulge or herniation. No spinal canal sten osis or neural foraminal narrowing. At L3-L4, there is minimal facet hypertrophy. No spinal canal stenosis or neural foraminal narrowing. No disc bulge or herniation. At L4-L5, there is minimal disc bulge with mild facet hypertrophy. No spinal canal stenosis or defini te neural foraminal narrowing. At L5-S1, there is minimal disc bulge and mild facet arthropathy. No spinal canal stenosis. Possible minimal bilateral neural foraminal narrowing. Paravertebral soft tissues are unremarkable. Impression: Minimal degenerative changes, as above. Reviewed, dictated and finalized at location M. Impression: Minimal degenerative changes, as above.
--- NOTE | ~2022-12-02 | MR_ITS ---
MRI of the thoracic spine Clinical History: Back pain Technique: Axial T2-weighted images, and sagittal T1-weighted, T2-weighted, and STIR images were acqu ired. Findings: There is no fracture or subluxation of the thoracic spine. Vertebral bodies maintain normal height and alignment. No focal bone marrow signal abnormality seen. No significant disc bulge or herniation seen at any thoracic level. No spinal canal stenosis or cord compression identified. No epidural mass or collection identified. Paravertebral soft tissues are unremarkable. Impression: Unremarkable exam. Reviewed, dictated and finalized at location M. Impression: Unremarkable exam.
== END ==
PROVIDERS: PCP Family Medicine; Visit Provider Nurse Practitioner Adult Health
DX: M54.2 Cervicalgia (principal); M54.9 Dorsalgia, unspecified; M51.36 Other intervertebral disc degeneration, lumbar region
CPT/HCPCS: 72141; 72146; 72148

== ENCOUNTER 2022-12-02 08:47 | Outpatient (CLI) | payer OTHER, SELFPAY ==
[2022-12-02 09:43] LABS: Basophils Percent Auto 0.7 % (0.2-1.2); Hemoglobin 12.1 g/dL (12.0-15.0); Immature Granulocyte Absolute 0.01 K/mm3 (0.00-0.031); Immature Granulocyte Percent A 0.2 % (0-0.5); Lymphocytes Absolute Auto 1.72 K/mm3 (0.9-3.2); Mean Corpuscular HGB Conc 33.6 g/dl (32-36); Mean Corpuscular Hemoglobin 29.4 pg (26-34); Mean Corpuscular Volume 87.4 fl (80-100); Mean Platelet Volume 10.2 fl (7.4-10.4); Monocytes Absolute Auto 0.4 K/mm3 (0.1-0.6); Monocytes Percent Auto 9.8 % (2.6-8.5); Neutrophils Absolute Auto 1.9 K/mm3 (1.3-6.7); Neutrophils Percent Auto 46.3 % (45.5-73.1); Platelet Count Result 299 k/mm3 (150-375); Red Blood Count 4.12 M/mm3 (4.2-5.4); Red Cell Distribution Width 12.3 % (11.5-14.5); White Blood Count 4.1 K/mm3 (4.5-10.0)
[2022-12-02 09:52] LABS: Alanine Aminotransferase 25 U/L (6-35); Albumin Level 4.4 g/dL (3.5-5.1); Alkaline Phosphatase 125 U/L (38-126); Anion Gap 5 mmol/L (8-16); Aspartate Amino Transferase 23 U/L (14-36); Bilirubin,Total 0.6 mg/dL (0.2-1.3); Blood Urea Nitrogen 12 mg/dL (7-17); Calcium 9.4 mg/dL (8.4-10.2); Carbon Dioxide 25 mmol/L (22-30); Chloride 109 mmol/L (98-107); Estimated Glomerular Filt Rate > 60; Glucose 99 mg/dL (65-110); Potassium 4.2 mmol/L (3.4-5.0); Sodium 139 mmol/L (137-145)
[2022-12-02 10:45] LABS: Free T4 Free Thyroxine 2.67 ng/mL (0.78-2.19)
== END 2022-12-02 08:48 | disposition home or self-care (01) ==
PROVIDERS: PCP Family Medicine; Visit Provider Physician Assistant
DX: R00.2 Palpitations (principal); E05.90 Thyrotoxicosis, unspecified without thyrotoxic crisis or storm; Z96.651 Presence of right artificial knee joint; E03.9 Hypothyroidism, unspecified
CPT/HCPCS: 36415; 80053; 84439; 85025

== ENCOUNTER 2022-12-29 13:44 | Outpatient (CLI) | payer OTHER, SELFPAY ==
[2022-12-29 14:57] LABS: Thyroid Stimulating Hormone < 0.015 uIU/mL (0.465-4.680)
[2022-12-29 15:27] LABS: Free T4 Free Thyroxine 3.57 ng/mL (0.78-2.19)
[2023-01-01 04:17] LABS: Triiodothyronine T3 Free 10.7 pg/mL (2.3-4.2)
== END 2022-12-29 13:45 | disposition home or self-care (01) ==
PROVIDERS: PCP Family Medicine; Visit Provider Physician Assistant
DX: E07.9 Disorder of thyroid, unspecified (principal); E05.90 Thyrotoxicosis, unspecified without thyrotoxic crisis or storm; E03.9 Hypothyroidism, unspecified
CPT/HCPCS: 36415; 84439; 84443; 84481

== ENCOUNTER 2023-01-06 11:25 | Outpatient (CLI) | payer OTHER, SELFPAY ==
[2023-01-09 14:52] LABS: Thyrotropin Receptor Antibody 8.33 IU/L (<=2.00)
[2023-01-10 04:36] LABS: Thyroid Peroxidase Antibodies <1 IU/mL (<9)
[2023-01-11 14:10] LABS: Thyroid Stimulating Immunoglob 377 % baseline (<140)
== END 2023-01-06 11:26 | disposition home or self-care (01) ==
LOC: ANHWCLAB 11:26
PROVIDERS: PCP Family Medicine; Visit Provider Internal Medicine
DX: E05.00 Thyrotoxicosis with diffuse goiter without thyrotoxic crisis or storm (principal); G43.909 Migraine, unspecified, not intractable, without status migrainosus
CPT/HCPCS: 36415; 83519; 84445; 86376

== ENCOUNTER 2023-02-01 09:58 | Outpatient (CLI) | payer OTHER, SELFPAY ==
[2023-02-01 13:28] LABS: Free T4 Free Thyroxine 2.18 ng/mL (0.78-2.19)
[2023-02-01 13:37] LABS: Total Triiodothyronine (T3) 1.95 NG/ML (0.97-1.69)
[2023-02-05 04:26] LABS: Triiodothyronine T3 Free 5.9 pg/mL (2.3-4.2)
== END 2023-02-01 09:59 | disposition home or self-care (01) ==
LOC: ANHWCLAB 10:02
PROVIDERS: PCP Family Medicine; Visit Provider Internal Medicine
DX: E05.90 Thyrotoxicosis, unspecified without thyrotoxic crisis or storm (principal); E05.00 Thyrotoxicosis with diffuse goiter without thyrotoxic crisis or storm
CPT/HCPCS: 36415; 84439; 84480; 84481

== ENCOUNTER 2023-03-16 09:04 | Outpatient (CLI) | payer OTHER, SELFPAY ==
[2023-03-16 10:01] LABS: Total Triiodothyronine (T3) 1.43 NG/ML (0.97-1.69)
[2023-03-16 10:03] LABS: Free T4 Free Thyroxine 1.63 ng/mL (0.78-2.19)
== END 2023-03-16 09:05 | disposition home or self-care (01) ==
PROVIDERS: PCP Family Medicine; Visit Provider Internal Medicine
DX: E05.00 Thyrotoxicosis with diffuse goiter without thyrotoxic crisis or storm (principal)
CPT/HCPCS: 36415; 84439; 84480

== ENCOUNTER 2023-04-05 22:51 | Emergency (ER) | payer OTHER, SELFPAY ==
--- NOTE | ~2023-04-05 | CT_ITS ---
Non-contrast Head CT History: Headache COMPARISON: 05/15/2022 Technique: Axial non-contrast imaging of the brain was performed. Dose reduction technique was used on this scan by utilizing automated exposure control and iterative reconstruction technique. The dose -length product (DLP) was 681.00 mGy-cm. Findings: There is no evidence of intracranial hemorrhage, mass lesion, or acute infarct. Brain par enchyma appears normal. The ventricles and subarachnoid spaces are normal in size. There is extensio n of the cerebellar tonsils into the foramen magnum. The calvarium appears normal. The visualized pa ranasal sinuses and mastoid air cells are clear. Impression: Findings consistent with Chiari I malformation. No acute abnormality. Reviewed, dictated and finalized at location . Impression: Findings consistent with Chiari I malformation. No acute abnormality.
[2023-04-05 22:59] VITALS: BP 133/83; PULSE 73; RESP 20; TEMP 36.8; O2SAT 100
--- NOTE | 2023-04-05 23:10 | PC.NURSE ---
pt c/o intermittent oakley, nausea and blurred vision for 2 weeks. states she has hx of chiari malformation and has hx of oakley. states taking excedrin and butalbital with out any relief. Was told to come to er for eval by jasmine murphy
--- NOTE | 2023-04-06 00:22 | ED.GENADULT ---
HPI - General Adult General Chief complaint: Headache Stated complaint: headache Time Seen by Provider: 04/06/23 00:04 History of Present Illness HPI narrative: 37 year old female history of migraines presented with headache. Per patient, for the past month she has been having intermittent right sided posterior headache, similar in quality as her usual headaches, slow in onset, improved with her migraine medications, however she ran out, so presented to the ED for further evaluation. She denied fevers/chills, nausea/vomiting, chest pain, shortness of breath, abdominal pain, fall. Related Data Home Medications Medication Instructions Recorded Confirmed buspirone 5 mg tablet 5 mg PO BID PRN 03/16/23 03/16/23 methimazole 5 mg tablet 5 mg PO DAILY 03/16/23 Allergies Allergy/AdvReac Type Severity Reaction Status Date / Time iodine Allergy Intermediate SWELLING Verified 03/16/23 10:53 shellfish derived Allergy Intermediate Swelling Verified 03/16/23 10:53 Review of Systems Review of Systems: See HPI [facility] Past Medical History Medical History Anxiety Body mass index (BMI) 23 or greater (03/31/17) Chiari I malformation Chronic tension-type headache, not intractable Elevated prolactin level Goiter diffuse Graves disease Hyperthyroidism Menometrorrhagia Micromastia Migraines Nasal polyp Palpitations Pharyngitis Tension headache Thyroid eye disease Surgical History Surgical History H/O breast augmentation Family History Family History Father Family history of alcoholism Family history of liver disease, Onset Age: 46 Patient's father is Mother Carcinoma of colon, Onset Age: 33 Sibling Family history of malignant neoplasm of testis, Onset Age: 28 Social History Social History Social History: Smoking status: Never smoker Second hand tobacco smoke exposure: No Alcohol intake: current Drinks per week: 3 Alcohol use details: Socially Substance use: never Substance use type: does not use Lack of Transportation: No Lack of Food: Never True Current Housing: I Have Housing Concerned About Future Housing: No Difficulty Paying Gas/Electric Bills: No Difficulty Paying for Meds: No Currently Unemployed: No Education: Grade School Difficulty w/ Childcare or Family Care: No Living arrangements: with family Occupation/Education: occupation Gender identity (if verbalized by the patient): Female Sexual Orientation (if Verbalized by the Patient): Straight or Heterosexual Spiritual care concerns: No Exam Narrative: General: Alert, calm and cooperative, no acute distress, phonating, sitting comfortably during visit HEENT: Pupils equal round and reactive to light, extra ocular movements intact, no conjunctival injection, head atraumatic, neck supple without meningismus Cardiovascular: Regular rate and rhythm, no visible jugular venous distension Respiratory: Lungs clear to auscultation bilaterally, no wheezing/rales/rhonchi Abdominal: soft, non-tender, non-distended, no guarding, no rebound/peritoneal signs, no costovertebral tenderness to palpation Back: no midline tenderness to palpation, no step offs Extremities: No edema, palpable peripheral pulses, warm, well perfused, no tenderness to bilateral calves Neurological: Alert and oriented x3, moving all extremities symmetrically, 5/5 strength throughout, normal finger nose finger, no pronator drift, negative romberg test, no truncal ataxia, sensation grossly intact, ambulating without deficit Course Reevaluation(s) Reevaluation #1: Patient reassessed; reporting resolution of all symptoms. Physical exam benign, sitting comfortably, vitals stable. Date: 04/06/23 Time: 02:25 Vital Signs
[2023-04-06] MEDS: MAGNESIUM SULF 2 GM/WATER 50ML 2 GM/50 ML BAG IVPB (00:28)
[2023-04-06] MEDS: METOCLOPRAMIDE HCL INJ 10 MG/2 ML VIAL IV PUSH (00:28)
[2023-04-06] MEDS: SODIUM CHLORIDE 0.9% IV 1,000 ML 999 ML IV CONT (00:29)
[2023-04-06] MEDS: ACETAMINOPHEN 500 MG TABLET 1000 MG PO (00:33)
[2023-04-06] MEDS: KETOROLAC 15 MG/ML VIAL (*BKC) IV PUSH (00:34)
[2023-04-06 01:00] VITALS: BP 123/89; PULSE 63; RESP 14; O2SAT 97
[2023-04-06 03:00] VITALS: BP 122/55; PULSE 89; RESP 16; O2SAT 100
== END 2023-04-06 03:02 | disposition home or self-care (01) ==
PROVIDERS: Emergency Provider Emergency Medicine; PCP Family Medicine
DX: R51.9 Headache, unspecified (principal); F41.9 Anxiety disorder, unspecified; E05.00 Thyrotoxicosis with diffuse goiter without thyrotoxic crisis or storm
CPT/HCPCS: 70450; 96365; 96375; 99284; A9270; J1100; J1885; J2765; J3475; J7030

== ENCOUNTER 2023-05-05 00:20 | Day surgery (SDC) | payer OTHER, SELFPAY ==
[2023-04-21 12:18] VITALS: BMI 24.3
--- NOTE | 2023-05-04 20:38 | PM.HPGS ---
History of Present Illness History of Present Illness Consent: Risks, benefits, and alternatives have been discussed and questions answered. Patient agrees to proceed with procedure. Chief complaint: family hx colon ca Narrative: Mary Esposito is a 37 year old female who is referred for colon cancer screening.Her mother had coon cancer Review of Systems Review of Systems: All systems reviewed & are unremarkable except as noted in HPI and below PMFSH Past Medical History Medical History Anxiety Body mass index (BMI) 23 or greater (03/31/17) Chiari I malformation Chronic tension-type headache, not intractable Elevated prolactin level Goiter diffuse Graves disease Hyperthyroidism Menometrorrhagia Micromastia Migraines Nasal polyp Palpitations Pharyngitis Tension headache Thyroid eye disease Surgical History Surgical History H/O breast augmentation Family History Family History Father Family history of alcoholism Family history of liver disease, Onset Age: 46 Patient's father is Mother Carcinoma of colon, Onset Age: 33 Sibling Family history of malignant neoplasm of testis, Onset Age: 28 Social History Social History Social History: Smoking status: Never smoker Second hand tobacco smoke exposure: No Alcohol intake: current Drinks per week: 3 Alcohol use details: Socially Substance use: never Substance use type: does not use Lack of Transportation: No Lack of Food: Never True Current Housing: I Have Housing Concerned About Future Housing: No Difficulty Paying Gas/Electric Bills: No Difficulty Paying for Meds: No Currently Unemployed: No Education: Grade School Difficulty w/ Childcare or Family Care: No Living arrangements: with family Occupation/Education: occupation Gender identity (if verbalized by the patient): Female Sexual Orientation (if Verbalized by the Patient): Straight or Heterosexual Spiritual care concerns: No Meds Home Medications and Allergies Home Medications Medication Instructions Recorded Confirmed Type methimazole 5 mg tablet 5 mg PO DAILY 03/16/23 04/21/23 History rlkbukl-tmkhypvndk-PMD-caffeine 30 1 cap PO DAILY PRN Migraine 08/10/23 08/10/23 History mg-50 mg-325 mg-40 mg capsule Headache Allergies Allergy/AdvReac Type Severity Reaction Status Date / Time iodine Allergy Intermediate SWELLING Verified 05/05/23 11:28 shellfish derived Allergy Intermediate Swelling Verified 05/05/23 11:28 Exam Const: General: alert Orientation/consciousness: patient oriented x3 Resp: Auscultation: clear to auscultation bilaterally Cardio: Rhythm: regular rhythm GI: GI Palp: Yes Soft to palpation and No Tenderness to palpation present (GI) Neuro: General: patient oriented x3 Assessment and Plan Assessment and plan (1) Colon cancer screening: Code(s): Z12.11 - Encounter for screening for malignant neoplasm of colon Status: Acute Assessment and Plan: Colonoscopy with possible biopsy or polypectomy or cautery or injection of substances.
[2023-05-05 11:30] VITALS: BP 116/71; PULSE 64; RESP 18; TEMP 36.6; O2SAT 100
[2023-05-05] MEDS: LACTATED RINGERS 1,000 ML 150 ML IV CONT (11:42)
--- NOTE | 2023-05-05 12:16 | WPDANESEPPF ---
Anes - Initial Pre Proc Eval Procedure: Operation Date: 05/05/23 12:30 Proposed Procedures p Colonoscopy - Marlon Hu MD Date/Time: 05/05/23 12:16 Surgeon: Marlon Hu MD Pre Op Diagnosis: family hx colon ca Patient Data Age: 37 Gender: F Height: 1.6 m Weight: 62.3 kg Allergies Allergy/AdvReac Type Severity Reaction Status Date / Time iodine Allergy Intermediate SWELLING Verified 05/05/23 11:28 shellfish derived Allergy Intermediate Swelling Verified 05/05/23 11:28 Home Medications Medication Instructions Recorded Confirmed Type methimazole 5 mg tablet 5 mg PO DAILY 03/16/23 04/21/23 History fhqgvck-nrfrtlcjvf-JNP-caffeine 30 1 cap PO DAILY PRN Migraine 04/21/23 04/21/23 History mg-50 mg-325 mg-40 mg capsule Headache Patient hx anesthesia problems: none Family hx anesthesia problems: none Results Review: All pre-operative results and documents have been reviewed as part of the pre-operative evaluation. [facility] Past Medical History Medical History Anxiety Body mass index (BMI) 23 or greater (03/31/17) Chiari I malformation Chronic tension-type headache, not intractable Elevated prolactin level Goiter diffuse Graves disease Hyperthyroidism Menometrorrhagia Micromastia Migraines Nasal polyp Palpitations Pharyngitis Tension headache Thyroid eye disease Surgical History Surgical History H/O breast augmentation Family History Family History Father Family history of alcoholism Family history of liver disease, Onset Age: 46 Patient's father is Mother Carcinoma of colon, Onset Age: 33 Sibling Family history of malignant neoplasm of testis, Onset Age: 28 Social History Social History Social History: Smoking status: Never smoker Second hand tobacco smoke exposure: No Alcohol intake: current Drinks per week: 3 Alcohol use details: Socially Substance use: never Substance use type: does not use Lack of Transportation: No Lack of Food: Never True Current Housing: I Have Housing Concerned About Future Housing: No Difficulty Paying Gas/Electric Bills: No Difficulty Paying for Meds: No Currently Unemployed: No Education: Grade School Difficulty w/ Childcare or Family Care: No Living arrangements: with family Occupation/Education: occupation Gender identity (if verbalized by the patient): Female Sexual Orientation (if Verbalized by the Patient): Straight or Heterosexual Spiritual care concerns: No Anes - Eval Final PreProcedure Day of Procedure 05/05/23 12:16 Patient weight: normal Heart: regular rate and rhythm Lungs: clear to auscultation and normal air movement Airway: Mallampati scale class II Neurological: alert and oriented Last oral intake: >/= 8 hours ASA classification: III Emergent: no Anesthetic plan: proceed Anesthesia type and monitoring: general GIVS and standard monitoring Results Review: All pre-operative results and documents have been reviewed as part of the pre-operative evaluation. Informed Consent: The patient's anesthetic plan and its attendant risks and benefits were discussed with the patient/family/POA. Questions were solicited and answers provided to the satisfaction of the patient/family/POA.
[2023-05-05 12:38] VITALS: BP 121/78; PULSE 61; RESP 25; O2SAT 100
[2023-05-05 12:48] VITALS: BP 122/76; PULSE 68; RESP 25; O2SAT 100
[2023-05-05 12:58] VITALS: BP 126/77; PULSE 68; RESP 22; O2SAT 100
== END 2023-05-05 13:15 | disposition home or self-care (01) ==
PROVIDERS: PCP Family Medicine; Visit Provider Internal Medicine Gastroenterology
PROC: 0DJD8ZZ Inspection of Lower Intestinal Tract, Via Natural or Artificial Opening Endoscopic (ICD-10-PCS; CPT 45378; principal; 2023-05-05 12:30)
DX: Z12.11 Encounter for screening for malignant neoplasm of colon (principal); K57.30 Diverticulosis of large intestine without perforation or abscess without bleeding; E05.00 Thyrotoxicosis with diffuse goiter without thyrotoxic crisis or storm; Z80.43 Family history of malignant neoplasm of testis; Z80.0 Family history of malignant neoplasm of digestive organs
CPT/HCPCS: 45378; J2704; J7120

== ENCOUNTER 2023-06-15 12:09 | Outpatient (CLI) | payer OTHER, SELFPAY ==
[2023-06-15 14:29] LABS: Free T4 Free Thyroxine 1.23 ng/mL (0.78-2.19)
== END 2023-06-15 12:10 | disposition home or self-care (01) ==
LOC: ANHLAB 12:10
PROVIDERS: PCP Family Medicine; Visit Provider Internal Medicine
DX: E05.90 Thyrotoxicosis, unspecified without thyrotoxic crisis or storm (principal)
CPT/HCPCS: 36415; 84439

== ENCOUNTER 2023-06-27 14:35 | Outpatient (CLI) | payer OTHER, SELFPAY ==
--- NOTE | ~2023-06-27 | US_ITS ---
EXAMINATION: US thyroid DATE: 06/27/2023 15:12 INDICATION: Nontoxic single thyroid nodule. TECHNIQUE: Multiple ultrasound images of the thyroid were obtained. COMPARISON: Ultrasound 07/15/2020 FINDINGS: The right thyroid lobe measures 5.8 x 2.5 x 2.5 cm. The left thyroid lobe measures 5.3 x 2.2 x 2.2 c m. The thyroid demonstrates heterogeneous echogenicity. Vascularity is normal. There is a 5 mm cyst in right thyroid lobe (TI-RADS TR1). IMPRESSION: 1. Benign cyst in right thyroid lobe. Reviewed, dictated and finalized at location E.
== END 2023-06-27 14:36 | disposition home or self-care (01) ==
PROVIDERS: PCP Family Medicine; Visit Provider Internal Medicine
DX: E04.1 Nontoxic single thyroid nodule (principal)
CPT/HCPCS: 76536

== ENCOUNTER 2023-09-19 11:39 | Outpatient (CLI) | payer OTHER, SELFPAY ==
[2023-09-19 13:41] LABS: Free T4 Free Thyroxine 0.87 ng/mL (0.78-2.19)
== END 2023-09-19 11:40 | disposition home or self-care (01) ==
LOC: ANHGOSHLAB 11:40
PROVIDERS: PCP Family Medicine; Visit Provider Internal Medicine
DX: E05.90 Thyrotoxicosis, unspecified without thyrotoxic crisis or storm (principal)
CPT/HCPCS: 36415; 84439

== ENCOUNTER 2024-01-10 09:13 | Outpatient (CLI) | payer OTHER, SELFPAY ==
[2024-01-10 13:54] LABS: Free T4 Free Thyroxine 1.16 ng/mL (0.78-2.19)
[2024-01-10 14:03] LABS: Thyroid Stimulating Hormone 0.214 uIU/mL (0.465-4.680)
[2024-01-16 19:04] LABS: Thyroid Stimulating Immunoglob 117 % baseline (<140)
== END 2024-01-10 09:14 | disposition home or self-care (01) ==
LOC: ANHWCLAB 09:16
PROVIDERS: Visit Provider Internal Medicine
DX: E05.90 Thyrotoxicosis, unspecified without thyrotoxic crisis or storm (principal)
CPT/HCPCS: 36415; 84439; 84443; 84445; 84480

== ENCOUNTER 2024-04-19 08:21 | Outpatient (CLI) | payer OTHER, SELFPAY ==
--- NOTE | ~2024-04-19 | MR_ITS ---
MRI of the brain Clinical History: Headache, Chiari I malformation Technique: Axial and sagittal T1-weighted images were acquired. These were followed by axial T2-weigh sam, diffusion weighted, gradient, and FLAIR images. COMPARISON: 06/01/2022 Findings: There is no abnormal signal in the brain parenchyma. No acute infarct, internal hemorrhage, or mass lesion. Ventricles and subarachnoid spaces are unremarkable. Orbits are unremarkable. Paranasal sinuses and m astoid air cells are clear. Major intracranial flow voids appear intact. There is mild inferior herniation of the cerebellar tonsils the foramen magnum, compatible with Chiar i I malformation. Sagittal midline structures otherwise are intact. IMPRESSION: Chiari I malformation, similar to prior exam. No other significant findings. Reviewed, dictated and finalized at location .
== END 2024-04-19 08:22 ==
LOC: GOSHIMG 08:23
PROVIDERS: PCP Family Medicine; Visit Provider Student in an Organized Health Care Education/Training Program
DX: R51.9 Headache, unspecified (principal); G93.5 Compression of brain
CPT/HCPCS: 70551

== ENCOUNTER 2024-06-13 14:57 | Outpatient (CLI) | payer OTHER, SELFPAY ==
[2024-06-13 15:59] LABS: Free T4 Free Thyroxine 0.92 ng/mL (0.78-2.19)
[2024-06-13 16:30] LABS: Total Triiodothyronine (T3) 1.21 NG/ML (0.97-1.69)
== END 2024-06-13 14:58 | disposition home or self-care (01) ==
LOC: ANHLAB 14:59
PROVIDERS: PCP Family Medicine; Visit Provider Internal Medicine
DX: E05.00 Thyrotoxicosis with diffuse goiter without thyrotoxic crisis or storm (principal); E07.9 Disorder of thyroid, unspecified; H57.89 Other specified disorders of eye and adnexa
CPT/HCPCS: 36415; 84439; 84443; 84480

== ENCOUNTER 2024-08-03 10:37 | Outpatient (CLI) | payer OTHER, SELFPAY ==
--- NOTE | ~2024-08-03 | MM_ITS ---
EXAMINATION: MM diag aniceto implant BI w jay HISTORY: Generalized right breast pain TECHNIQUE: 3-D tomosynthesis images of the right breast were performed and synthetic 2-D images were generated. CAD analysis was submitted and interpreted. COMPARISON: None BREAST PARENCHYMAL COMPOSITION:Dense: The breasts are heterogeneously dense, which may obscure small masses. FINDINGS: No suspicious mass lesion or distortion seen. No suspicious microcalcifications seen. Breas t parenchymal pattern is unremarkable. IMPRESSION: No mammographic evidence for malignancy. BI-RADS Category 1: Negative Reviewed, dictated and finalized at location . 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
== END 2024-08-03 10:38 | disposition home or self-care (01) ==
LOC: ANHIMG 10:38
PROVIDERS: PCP Family Medicine; Visit Provider Family Medicine
DX: T85.49XA Other mechanical complication of breast prosthesis and implant, initial encounter (principal); Y83.8 Other surgical procedures as the cause of abnormal reaction of the patient, or of later complication, without mention of misadventure at the time of the procedure
CPT/HCPCS: 77062; 77066; G0279

== ENCOUNTER 2024-09-14 11:48 | Outpatient (CLI) | payer OTHER, SELFPAY ==
--- NOTE | ~2024-09-14 | XR_ITS ---
XR abdomen/kub 1V Ordering provider: Margo Roldan PA-C History: . R10.9 - Unspecified abdominal pain . Comparison: None. FINDINGS: BOWEL: Fecal material seen in the colon. Nonobstructive bowel gas pattern. ORGANOMEGALY: None. SIGNIFICANT PATHOLOGIC CALCIFICATIONS: None. OTHER: No free air is seen under the diaphragm. IMPRESSION: NO ACUTE ABDOMINAL FINDINGS. Constipation. Reviewed, dictated and finalized at location A. RECEPTIONIST
== END 2024-09-14 11:49 | disposition home or self-care (01) ==
PROVIDERS: PCP Family Medicine; Visit Provider Physician Assistant
DX: R19.7 Diarrhea, unspecified (principal)
CPT/HCPCS: 74018

== ENCOUNTER 2024-10-10 17:14 | Emergency (ER) | payer OTHER, SELFPAY ==
--- NOTE | 2024-10-10 17:19 | ED.ABDPAIN ---
HPI - Abdominal Pain General Chief Complaint: Urogenital-Female Stated Complaint: ABD PAIN/BACK PAIN Time Seen by Provider: 10/10/24 17:22 Source: patient Mode of arrival: ambulatory Limitations: no limitations History of Present Illness HPI narrative: Mary is a 39-year-old female patient presenting to the clinic today with complaints of right lower abdominal and right flank pain x1 day. She reports pain is sharp in the right lower quadrant. Rates her pain currently is 7/10. No history of kidney stones. History of ovarian cyst and constipation. Reports some urinary frequency without burning or urgency. Recently was treated earlier this month for UTI and was placed on Macrobid. Denies any vaginal discharge or odor. Denies any concern for sexually transmitted infections. She denies any fevers, chills, body aches nausea, vomiting, or any URI symptoms. Related Data Home Medications ?Medication ?Instructions ?Recorded ?Confirmed ?Last Taken ?Type methimazole 5 mg tablet 2.5 mg PO DAILY 10/26/23 09/14/24 Unknown History Allergies Allergy/AdvReac Type Severity Reaction Status Date / Time iodine Allergy Intermediate SWELLING Verified 09/14/24 11:01 shellfish derived Allergy Intermediate Swelling Verified 09/14/24 11:01 Review of Systems Review of Systems: Pertinent positives per HPI. Patient denies any fever, chills, rash, headache, visual changes, dizziness, cough, runny nose, sore throat, shortness of breath, chest pain, palpitations, nausea, vomiting, diarrhea. PMFSH Past Medical History Medical History Menometrorrhagia Chronic tension-type headache, not intractable Body mass index (BMI) 23 or greater (03/31/17) Thyroid eye disease Anxiety Palpitations Chiari I malformation Elevated prolactin level Migraines Hyperthyroidism Graves disease Micromastia Goiter diffuse Pharyngitis Nasal polyp Tension headache Surgical History Surgical History H/O breast augmentation Family History Family History Father Family history of alcoholism Family history of liver disease, Onset Age: 46 Patient's father is Mother Carcinoma of colon, Onset Age: 33 Sibling Family history of malignant neoplasm of testis, Onset Age: 28 Social History Social History Social History: Smoking status: Never smoker Second hand tobacco smoke exposure: No Alcohol intake: current Alcohol use details: Socially Substance use: never Substance use type: does not use Do You Feel Safe in your Home?: Yes Lack of Transportation: No Lack of Food: Never True Current Housing: I Have Housing Concerned About Future Housing: No Difficulty Paying Gas/Electric Bills: No Difficulty Paying for Meds: No Currently Unemployed: No Education: Master's Degree or Higher Difficulty w/ Childcare or Family Care: No Living arrangements: with family Occupation/Education: occupation 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 There is no relevant family history pertinent to the patient complaint. Exam Narrative: General: Well-developed, well nourished, in no apparent distress. Head: Normocephalic, atraumatic. Cardio: Regular rate and rhythm, s1 and s2 normal, no murmur appreciated. Resp: Clear to auscultation bilaterally, no rhonchi, rales, wheezing or rubs. Abdomen: Soft, pliable, bowel sounds present in all quadrants, tender to palpation over the right lower quadrant and right ovary, no organomegly, no CVAT tenderness. Course Course Emergency Course: Portions of this record may have been created with voice recognition software. Level of Care: Express Care Visit Vital Signs Vital signs: Vital Signs Temperature 36.9 C 10/10/24 17:23 Pulse Rate 70 10/10/24 17:23 Respiratory Rate 16 10/10/24 17:23 Blood Pressure 117/66 10/10/24 17:23 Pulse Oximetry 100 10/10/24 17:23 Temperature 36.9 C 10/10/24 17:23 Pulse Rate 70 10/10/24 17:23 Respiratory Rate 16 10/10/24 17:23 Blood Pressure 117/66 10/10/24 17:23 Pulse Oximetry 100 10/10/24 17:23 Vital signs reviewed MDM - Abdominal Pain MDM Narrative Medical decision making narrative: At the time of visit patient is resting comfortably on the exam table. Patient appears to be nontoxic. Labs: Urinalysis dip was performed and shows a trace of intact blood. Bedside negative Plan: Patient has right lower quadrant abdominal pain and right sided pelvic pain. Recommend transfer to the ER for further evaluation to rule out appendicitis, ureteral fly cyst, or ovarian cyst/torsion. Patient agrees to transfer and would like to go to [facility] emergency room. Contacted Stew at [facility] and report was given for continuity of care and he accepts patient. Patient to remain NPO and be transferred via private car. Differential Diagnosis Differential diagnosis: Likely abdominal pain, acute appendicitis, calculus of kidney, constipation, diverticulitis, endometriosis, gastroenteritis, pancreatitis, small bowel obstruction and other (Ovarian cyst, ovarian torsion) Lab Data Labs: Lab Results 10/10/24 Range/Units 17:28 POC Urine Color Yellow POC Urine Clarity Clear POC Urine pH 7.5 POC Ur Specif [place] 1.015 POC Urine Protein Negative (Negative) POC Ur Glucose (UA) Negative (Negative) POC Urine Ketones Negative (Negative) POC Urine Blood Trace (Negative) POC Urine Nitrite Negative (Negative) POC Urine Bilirubin Negative (Negative) POC Urine Urobilinogen 0.2 POC U Leukocyte Esteras Negative (Negative) POC Urine HCG, Qual Negative (Negative) Discharge Plan Discharge Clinical Impression: Right lower quadrant abdominal pain, Adnexal tenderness, right, Hematuria, Acute flank pain Patient Disposition: Acute Care Hospital Condition: Stable Patient Language: Micronesian Prescriptions: No Action fluticasone propionate 50 mcg/actuation spray,suspension 1 spray intranasal DAILY Qty: 16 0RF Rx Instructions: administer into each nostril omeprazole 20 mg capsule,delayed release(DR/EC) 20 mg PO DAILY Qty: 90 0RF methimazole 5 mg tablet 2.5 mg PO DAILY rizatriptan [Maxalt] 10 mg tablet 10 mg PO ONCE PRN (Reason: migraine headache) Qty: 10 3RF Rx Instructions: as a single dose clobetasol 0.05 % cream See Rx Instructions .ROUTE .COMPLEX Qty: 15 0RF Dose Instruction: APPLY TOPICALLY TO THE AFFECTED AREA EVERY DAY AT BEDTIME Rx Instructions: APPLY TOPICALLY TO THE AFFECTED AREA EVERY DAY AT BEDTIME Follow-up/Referrals: David Anderson MD [Primary Care Provider] - Time of Disposition: 17:41 Quality NIHSS Nursing Documentation ED NIHSS nursing documentation: reviewed/agree
[2024-10-10 17:23] VITALS: BP 117/66; PULSE 70; RESP 16; TEMP 36.9; O2SAT 100
[2024-10-10 17:31] LABS: BEDSIDEPREGUCG Negative (Negative); EDUAAPPEAR Clear; EDUABILI Negative (Negative); EDUABLOOD Trace (Negative); EDUACOLOR1 Yellow; EDUAGLUCOSE Negative (Negative); EDUAKETONE Negative (Negative); EDUALEUKO Negative (Negative); EDUANITRATE Negative (Negative); EDUAPH 7.5; EDUAPROTEIN Negative (Negative); EDUASPGRAVITY 1.015; EDUAUROBILI 0.2
== END 2024-10-10 17:35 | disposition short-term general hospital (02) ==
PROVIDERS: Emergency Provider Nurse Practitioner Family; PCP Family Medicine
DX: R10.31 Right lower quadrant pain (principal); R31.9 Hematuria, unspecified; R10.9 Unspecified abdominal pain; E05.90 Thyrotoxicosis, unspecified without thyrotoxic crisis or storm; E05.00 Thyrotoxicosis with diffuse goiter without thyrotoxic crisis or storm; G93.5 Compression of brain
CPT/HCPCS: 81003; 81025; 99212; G0463

== ENCOUNTER 2024-10-10 17:57 | Emergency (ER) | payer OTHER, SELFPAY ==
--- NOTE | ~2024-10-10 | US_ITS ---
EXAMINATION: US pelvic complete DATE: 10/10/2024 22:53 INDICATION: RLQ pain, Hx ovarian cysts TECHNIQUE: Multiple transabdominal and endovaginal sonographic images of the pelvis were obtained. COMPARISON: CT abdomen pelvis, same date. FINDINGS: Uterus: 11.3 x 8.1 x 7.5 cm. Multiple uterine fibroids. Endometrial complex measures 5.0 mm. Right Ovary: Located posterior to the uterus, measuring 4.6 x 2.6 x 4.0 cm. (Ovarian volume 25.6 mL). Vascular flow is present. Left Ovary: 4.5 x 2.2 x 1.6 cm. Vascular flow is present. There is no free fluid in the pelvis. IMPRESSION: Multiple uterine fibroids. The prior CT finding of soft tissue density in the cul-de-sac is explained by an enlarged, 25 mL righ t ovary posterior to the uterus with peripheral follicles. Consider ovarian torsion in the differenti al given ovarian size and morphology. Vascular flow is maintained but this does not exclude torsion. Reviewed, dictated and finalized at location K. ES 1 6 TUTOR IMPRESSION: Multiple uterine fibroids. The prior CT finding of soft tissue density in the cul-de-sac is explained by a n enlarged, 25 mL right ovary posterior to the uterus with peripheral follicles . Consider ovarian torsion in the differential given ovarian size and morpholog y. Vascular flow is maintained but this does not exclude torsion.
--- NOTE | ~2024-10-10 | CT_ITS ---
EXAMINATION: CT abdomen pelvis wo con DATE: 10/10/2024 21:29 INDICATION: R flank tender, RLQ pain, TECHNIQUE: Computed tomography (CT) of the abdomen and pelvis was performed without intravenous contr ast. Automated exposure control and iterative reconstruction technique were employed. The dose-length product was 341.71 mGy-cm. COMPARISON: CT abdomen pelvis 05/23/2019; ultrasound pelvis 04/05/2022. FINDINGS: Lower thorax: Bilateral breast implants. Liver: Normal. Biliary/Gallbladder: Gallbladder is contracted. No inflammatory change. No bile duct dilation. Pancreas: No mass or duct dilation. Spleen: Normal. Adrenals:No mass. Kidneys: No suspicious mass, obstructing stone, or hydronephrosis. GI tract: No small or large bowel dilation. Normal appendix. Mesentery/Peritoneum: No ascites, mass, or free air. Retroperitoneum: No mass. Pelvis: The uterus is enlarged and increased in size since the comparison. Soft tissue density within the cul-de-sac may represent heterogeneous fluid or soft tissue. The bilateral ovaries are not confi dently visualized. The urinary bladder is distended, without wall thickening. Numerous pelvic phlebol iths. Soft Tissues: Soft tissues and body wall unremarkable. Bones: No acute osseous finding. IMPRESSION: Normal appendix. Enlarged uterus, possibly due to fibroid disease. Exophytic fibroid versus nonsimple pelvic fluid in the cul-de-sac. Numerous pelvic phleboliths are shifted in position due to the change in uterine size but appear to b e grossly stable. No definite calcification within the urinary bladder or within the path of the uret ers. Reviewed, dictated and finalized at location K. RAM MANAGER TRANSPORTATION IMPRESSION: Normal appendix. Enlarged uterus, possibly due to fibroid disease. Exophytic fibroid versus nonsimple pelvic fluid in the cul-de-sac. Numerous pelvic phleboliths are shifted in position due to the change in uterin e size but appear to be grossly stable. No definite calcification within the ur inary bladder or within the path of the ureters.
--- OUTSIDE RECORDS SUMMARY | 2024-10-10 18:00 | XMS_ITS | Patient Health Summary ---
Author Organization [facility] Address [address] [place] [address] Care Team Providers Care Jet Pilot Name Role Phone Alena Verma MD Primary Care Provider + Note from [facility],non-owned Affiliates and Associated Physician Practices is amultiple site organization consisting of ambulatory clinics and hospital sitesin [place], [place], [place] and [place]. This disclosure is being madepursuant to the Care Everywhere program and may not contain all information available regarding this patient. Last updated 18.[facility] Active Problems Problem Noted Date Diagnosed Date Choroid plexus cysts, , affecting care of mother, antepartum 03/23/2013 Social History Tobacco Use Types Packs/Day Years Used Date Smoking Tobacco: Never Alcohol Use Standard Drinks/Week Comments No 0 (1 standard drink = 0.6 oz pur e alcohol) Sex and Gender Information Value Date Recorded Sex Assigned at Not on file Gender Identity Not on file Sexual Orientation Not on file Procedures * SONOGRAM - COMPLETE(Performed 03/27/2013) Performed for Choroid plexus cysts, , affecting care of mother, antepartum (HCC) Results * SONOGRAM - COMPLETE (03/27/2013 4:28 PM CDT) Anatomical Region Laterality Modality Other 03/27/2013 4:28 PM CDT Narrative 03/27/2013 5:26 PM CDT ?[facility] ?PHONE: ??FAX: ? Pat. Name: ?MARY REAVES Pat. No: ?[id number] Study Date: ?? 03/27/2013 ??4:28pm , Age: ? 1985, 27 Pregnancies: ?? 1 LMP: ?11/08/2012 GA by LMP: ?19w6d GA by US: ? 20w0d GA Selected: ??19w6d (LMP) DEV: ?08/15/2013 Referring MD: BRITNEY MURCIA MD Content Assistant: ??Denisse Brown RDMS ICD9: ? 655.03 CPT4: ? 32030 Hist/Ind: ? Bilateral Choroid Plexus Cysts MEASUREMENTS & AGE ? GROWTH EVALUATION Measurement ??GA ? Range ? Srce %for GA Ratios ----- ---- ------- BPD ??4.8 cm 20w4d (78w8b-16q3c) Hadl BPD 66% FL/BPD 0.64 HC ??17.2 cm 19w5d (10k0i-59b4b) Hadl HC ??46% FL/AC ??0.20 AC ??15.2 cm 20w3d (47e9g-49p1a) Hadl AC ??61% HC/AC ??1.13 (1.06 - 1.25) FL ?? 3.1 cm 19w4d (82b7k-58g0a) Hadl FL ??41% CI ? 0.79 (0.70 - 0.86) HL ?? 2.9 cm 19w3d (25q2w-03f8r) Rylan HL ??42% GA for sonogram 20w0d (46f5f-26e3n) ?? Weight Estimate: based on (HL,BPD,HC,AC,FL) Avg ? Weight: 326 gm (279-374) [place]lock ? : 0lbs, 11oz Heart Rate: 148 bpm CLINICAL SUMMARY Study Number: ??1 A sun fetus is identified in cephalic presentation. ??The measurements today are consistent with appropriate size for the DEV provided. ??The DEV selected is based on her LMP and a prior ultrasound examination. ??The amniotic fluid volume is within normal limits. ??The placenta is anterior with no evidence for placenta previa, Grade 1. ??No major malformations are seen. ??No evidence of choroid plexus cyst on the left. ??The right choroid demonstrated a resolving/collapsed cyst. ??The patient was advised that ultrasound does not allow detection of all structural or chromosomal abnormalities. ?? IMPRESSION: ?? Sun, live IUP at 19w6d Normal amniotic fluid volume. Appropriate growth with respect to previously assigned dating. Placental location: ??Anterior, with no evidence for placenta previa Collapsed right choroid plexus cyst, left side normal in appearance No major malformations are seen today within the limitations of ultrasound. RECOMMEND: ?? Follow up ultrasound as clinically indicated. Thank you for allowing us the opportunity to care for your patient. Iglesia Xavier MD <Electronic Signature> ??03/27/2013 05:21pm Britney Murcia MD [facility] ORDERABLES Care Teams Jet Pilot Relationship Specialty Start Date End Date Alena Verma MD [address] [place] [address] PCP - General 07/17/18
--- OUTSIDE RECORDS SUMMARY | 2024-10-10 18:00 | XMS_ITS | Clinical Summary ---
Author Organization [facility] [address] Address [address] [place] [id number] Care Team Providers Care Public Administration Teacher Name Role Phone Alena Verma MD Primary Care Provider Allergies Active Allergy Reactions Criticality Noted Date Comments Shellfish Containing Products Medications azelaic acid (Azelex) 20 % cream To face qhs 7 Active butalbitaL-acet [id number]-[id number] [id number] mg capsule TAKE 1 CAPSULE BY MOUTH EVERY 8 HOURS NEEDED FOR PAIN 1 Active carisoprodoL (SOMA) 350 mg tablet TAKE 1 TABLET BY MOUTH THREE TIMES DAILY NEEDED FOR MUSCLE PAIN 1 Active docusate sodium (COLACE) 100 mg capsule Take 100 mg by mouth daily 1 Active hydrOXYzine (ATARAX) 25 mg tablet TAKE 1 TABLET BY MOUTH THREE TIMES DAILY NEEDED FOR ITCHING 1 Active methIMAzole (TAPAZOLE) 10 mg tablet Take 0.5 tablets (5 mg total) by mouth daily 1 Active ondansetron (ZOFRAN) 4 mg tablet Take 4 mg by mouth every 8 (eight) hours 1 Active oxyCODONE-aceta minophen (PERCOCET) 5-325 mg per tablet Take by mouth every 6 (six) hours as needed 1 Active sulfacetamide sodium, acne, 10 % suspension APPLY SPARINGLY TO FACE TWICE DAILY. 7 Active methIMAzole (TAPAZOLE) 5 mg tablet 1 tablet (5 mg total) Pt reports she is taking 2.5mg PO 3 Active Active Problems Problem Noted Date Diagnosed Date Acne vulgaris 03/03/2017 Medical History Medical History Date Comments Thyroid disease Family History Medical History Relation Name Comments Glaucoma Neg Hx Macular degeneration Neg Hx Thyroid disease Neg Hx Social History Tobacco Use Types Packs/Day Years Used Date Smoking Tobacco: Never Tobacco Cessation:Counseling Given: Not Answered AUDIT-C Answer Date Recorded Q1: How often do you have a drink containing alc ohol? 2-4 times a month 05/25/2023 Q2: How many drinks containi ng alcohol do you have on a typical day when you are drinking? 3 or 4 05/25/2023 Q3: How often do you have si x or more drinks on one occasion? Never 05/25/2023 Personal Safety Answer Date Recorded Getting School Help Needed Not on file 10/24 Comments Unknown Sex and Gender Information Value Date Recorded Sex Assigned at Not on file Legal Sex Female 3:56 AM [employer] Gender Identity Not on file Sexual Orientation Not on file Obstetrics History Last Filed Vital Signs Vital Sign Reading Time Taken Comments Blood Pressure - - Pulse - - Temperature - - Respiratory Rate - - Oxygen Saturation - - Inhaled Oxygen Concentration - - Weight 61.7 kg (136 lb) 05/25/2023 12:04 PM CDT Height 160 cm (5' 3 ) 05/25/2023 12:04 PM CDT Body Mass Index 24.09 05/25/2023 12:04 PM CDT Plan of Treatment Health Maintenance Due Date Last Done Comments Cervical Cancer Screening 1985 Depression Screening 1985 Hepatitis C Screening 1985 DTaP/Tdap/Td Vaccine (1 - Tdap) 1996 Varicella Vaccines (1 of 2 - 13+ 2-dose series) 1998 Hepatitis B Screening 2003 Regular Well Visit/Exam 18-64 2003 Covid-19 Vaccine ( - 2023-2 5 season) 2024 06/16/2021, 05/26/2021 Influenza Vaccine (#1) 2024 HPV Vaccines Aged Out No longer eligi ble based on patient's age to complete this topic Pneumococcal vaccine <65 Aged Out No longer eligible based on patient's age to complete this topic Insurance [facility] Care Teams Public Administration Teacher Relationship Specialty Start Date End Date Alena Verma MD [address] [facility] [address] [place] [address] PCP - General Family Medicine 07/29/21
--- OUTSIDE RECORDS SUMMARY | 2024-10-10 18:00 | XMS_ITS | Patient Health Record ---
Author Organization [facility] Address [address] [place] [address] Care Team Providers Care Street Light Repairer Helper Name Role Phone Dr. Alena Kessler Primary Care Provider Un available Dr. Bradford Schaffer Unavailable [phone] Sherry Diego Unavailable [phone] Allergies No Known Allergies Reason For Referral Reason Botox PA 200 Units f or G43.709 Diagnosis 1 Chronic migraine wit hout aura, not intractable, without status migrainosus (G43.709) [facility] Referring Provider First Name Bradford Referring Provider Last Name Karime Referring Provider Speciality Neurology Referred Organization [facility] Referred Provider Tim Schaffer Referred Address [address] [place], [place],[address], Referred Provider Specialty Neurology Procedure 1 BOTULINUM TOXIN TYPE A PER UNIT 100 UN (J0585) Procedure 2 CHEMODENERV [facility] ([id number]) Referral Priority Routine Medications Medication SIG (Take, Route, Frequency, Duration) Notes Start Date End Date Status methIMAzole 5 MG 1 tablet Orally Once a day Active Nurtec 75 MG 1 tablet Orally once daily for 30 days As needed for migraine 09/27/2024 Active Rizatriptan Benzoate 10 MG 1 tablet Orally twice daily As needed Active Problems Problem Type SNOMED Code ICD Code Onset Dates Problem Status W/U Status Risk Notes Problem Chronic migraine without aura, non-refractor y (disorder) (629114838219 100) Migraine without aura, not intractable, without status migrainosus (G43.009) Active confirmed Problem Migraine with aura (0406960) Migraine with aura, not intractable, without status migrainosus (G43.109) Active confirmed Problem Chronic migraine without aura, non-intractab le (113808258168 100) Chronic migraine without aura, not intractable, without status migrainosus (G43.709) Active confirmed Problem Muscle pain (78381742) Myalgia, unspecified site (M79.10) Active confirmed Vital Signs Respiratory Rate 16 /min 03/01/2024 Oximetry 99 % 05/24/2024 Blood pressure diastolic 76 mm Hg 05/24/2024 Height 63 in 05/24/2024 Blood pressure systolic 129 mm Hg 05/24/2024 Weight 159.0 lbs 03/01/2024 BMI 28.16 kg/m2 03/01/2024 Encounters Encounter Location Date Provider Diagnosis [facility] [address] [address] 03/01/2024 Bradford Schaffer Chronic migraine without aura, not intractable, without status migrainosus G43.709 and Myalgia, unspecified site M79.10 [place] [address] [facility] [address] [address] 04/12/2024 Bradford Schaffer Chronic migraine without aura, not intractable, without status migrainosus G43.709 [place] [address] [facility] [address] [address] 05/24/2024 Bradford Schaffer Chronic migraine without aura, not intractable, without status migrainosus G43.709 and Myalgia, unspecified site M79.10 [place] [address] [facility] [address] [address] 07/05/2024 Sherry Diego Chronic migraine without aura, not intractable, without status migrainosus G43.709 [place] [address] [facility] [address] [address] 09/27/2024 Sherry Diego Chronic migraine without aura, not intractable, without status migrainosus G43.[address] [address] 10/02/2024 Bradford Karime Assessments Encounter Date Diagnosis (ICD Code) Assessment Notes Treatment Notes Treatment Clinical Notes Section Notes 03/01/2024 Chronic migraine without aura, not intractable, without status migrainosus (ICD-10 - G43.709) -Abortive treatment plan: Samples of Nurtec and Zavzpret NS. -Preventive treatment plan: Botox PA. Increase dose to 200 Units, add levator scapulae injections, increase occipitalis injections. -Educated the patient on migraine lifestyle recommendations. I recommended the following measures: avoid known triggers of migraine, drink > 100 fluid ounces of non-caffeinated fluid daily, limit caffeine to 2 servings/day, sleep 7-8 hours/night and address any sleep concerns with us and report symptoms of snoring or fatigue; healthy management of stress; avoid treating headaches more than 2 days/week with abortive medication unless approved in treatment plan; can take Riboflavin 400 mg and Magnesium 500 mg daily as supplements; keep scheduled follow-up appointments 03/01/2024 Myalgia, unspecified site (ICD-10 - M79.10) Botox should help this. 04/12/2024 Chronic migraine without aura, not intractable, without status migrainosus (ICD-10 - G43.709) 05/24/2024 Chronic migraine without aura, not intractable, without status migrainosus (ICD-10 - G43.709) -Abortive treatment plan: Gave samples of Nurtec and Zavspret on last visit- not yet used. -Preventive treatment plan: Continue Botox injections.-Educ ated the patient on migraine lifestyle recommendations. I recommended the following measures: avoid known triggers of migraine, drink > 100 fluid ounces of non-caffeinated fluid daily, limit caffeine to 2 servings/day, sleep 7-8 hours/night and address any sleep concerns with us and report symptoms of snoring or fatigue; healthy management of stress; avoid treating headaches more than 2 days/week with abortive medication unless approved in treatment plan; can take Riboflavin 400 mg and Magnesium 500 mg daily as supplements; keep scheduled follow-up appointments 05/24/2024 Myalgia, unspecified site (ICD-10 - M79.10) Parascapular myofascial pain improved with Botox 07/05/2024 Chronic migraine without aura, not intractable, without status migrainosus (ICD-10 - G43.709) 09/27/2024 Chronic migraine without aura, not intractable, without status migrainosus (ICD-10 - G43.709) -Abortive treatment plan: Continue rizatriptan. Start Nurtec.-Preventi ve treatment plan: Continue Botox. -Educated the patient on migraine lifestyle recommendations. I recommended the following measures: avoid known triggers of migraine, drink > 100 fluid ounces of non-caffeinated fluid daily, limit caffeine to 2 servings/day, sleep 7-8 hours/night and address any sleep concerns with us and report symptoms of snoring or fatigue; healthy management of stress; avoid treating headaches more than 2 days/week with abortive medication unless approved in treatment plan; can take Riboflavin 400 mg and Magnesium 500 mg daily as supplements; keep scheduled follow-up appointments Plan Of Treatment Next Appt Details Provider Name:Sherry galvin, 12/20/2024 11:00:00 AM, [address] [facility], [address], [place], [address], Insurance Providers Payer Name Payer Address Payer Phone Subscriber Number Group Number Insured Name Patient Relationship to Insured Coverage Start Date Coverage End Date [employer] POS II [address] [place] [address] [id number] Mary Esposito Self - patient is the insured 3 Medical (General) History Medical History History ICD Code Grave's disease Thyroid ophthalmopathy Migraine
--- OUTSIDE RECORDS SUMMARY | 2024-10-10 18:00 | XMS_ITS | Referral Summary ---
Author Organization [facility] Address [address] [place] [address] Care Team Providers Care Straw Baler Name Role Phone Alena Verma MD Primary Care Provider + Source Comments [facility],non-owned Affiliates and Associated Physician Practices is amultiple site organization consisting of ambulatory clinics and hospital sitesin [place], [place], [place] and [place]. This disclosure is being madepursuant to the Care Everywhere program and may not contain all information available regarding this patient. Last updated 18.[facility] Active Problems Problem Noted Date Diagnosed Date [...] on file Sexual Orientation Not on file Plan of Treatment Not on file Care Teams Straw Baler Relationship Specialty Start Date End Date Alena Verma MD [address] [place] [address] PCP - General 07/17/18
--- OUTSIDE RECORDS SUMMARY | 2024-10-10 18:00 | XMS_ITS ---
Author Organization [facility] Address [address] [place] [address] Care Team Providers Care Director Of Alumni Relations Name Role Phone Dr. Alena Kessler Primary Care Provider Un available Dr. Bradford Schaffer Unavailable [phone] REASON FOR VISIT [facility] Approved 10/02/2024-10/02/2025 Encounters Encounter Location Date Provider Diagnosis [facility] [address] [place] [address] 10/02/2024 Bradford Schaffer Plan Of Treatment Next Appt Details Provider Name:Sherry galvin, 12/20/2024 11:00:00 AM, [address] [facility], [address], [address], Progress Notes * Ayo ESPOSITOB: 6 (39 yo F)Acc No.[id number]:10/02/2024 Patient:?Mary ESPOSITO :1985???Age:39 Y???Sex:Female Address:[address] [place] [address] [place], [place], [address] * true * Date:? Generated for Printi ng/Faxing/eTransmitting on:?10/10/2024 06:00 PM [employer]
--- OUTSIDE RECORDS SUMMARY | 2024-10-10 18:00 | XMS_ITS | Clinical Summary ---
Author Organization [facility] Address [address] [place] [address] Care Team Providers Care Security Auditor Name Role Phone Alena Verma MD Primary Care Provider + Source Comments [facility],non-owned Affiliates and Associated Physician Practices is amultiple site organization consisting of ambulatory clinics and hospital sitesin [place], [place] and [place]. This disclosure is being madepursuant to the Care Everywhere program and may not contain all information available regarding this patient. Last updated 18.[facility] Active Problems Problem Noted Date [...] Orientation Not on file Plan of Treatment Health Maintenance Due Date Last Done Comments PAP SMEAR 1985 HIV SCREENING 2000 HEPATITIS C SCREENING 09/27/2003 DTAP/TDAP/TD VACCINES (1 - Tdap) 2004 HEPATITIS B VACCINE (1 of 3 - 19+ 3-dose series) 2004 COVID-19 VACCINE (2023-2 5 season) 2024 INFLUENZA VACCINE (#1) 2024 DEPRESSION SCREENING 09/12/2024 ZOSTER VACCINE (1 of 2) 2035 HIB VACCINE Aged Out No longer eligi ble based on patient's age to complete this topic HPV VACCINE Aged Out No longer eligi ble based on patient's age to complete this topic MENINGOCOCCAL (Group B) VACCINE Aged Out No longer eligible based on patient's age to complete this topic MENINGOCOCCAL VACCINE Aged Out No frances alvarez eligible based on patient's age to complete this topic PNEUMOCOCCAL VACCINE Aged Out No long er eligible based on patient's age to complete this topic Care Teams Security Auditor Relationship Specialty Start Date End Date Alena Verma MD [address] [place] [address] PCP - General 07/17/18
--- OUTSIDE RECORDS SUMMARY | 2024-10-10 18:00 | XMS_ITS ---
Author Organization [facility] Address [address] [place] [address] Care Team Providers Care Track Manager Name Role Phone Dr. Alena Kessler Primary Care Provider Un available Dr. Bradford Schaffer Unavailable [phone] Sherry Diego Unavailable [phone] Allergies No Known Allergies REASON FOR VISIT Botox Only Medications Medication SIG (Take, Route, Frequency, Duration) Notes Start Date End Date Status methIMAzole 5 MG 1 tablet Orally Once a day Active Nurtec 75 MG 1 tablet Orally once daily for 30 days As needed for migraine 09/27/2024 Active Rizatriptan Benzoate 10 MG 1 tablet Orally twice daily As needed Active Encounters Encounter Location Date Provider Diagnosis [facility] [address] [place] [address] [place] [address] 09/27/2024 Sherry Diego Chronic migraine without aura, not intractable, without status migrainosus G43.709 Assessments Encounter Date Diagnosis (ICD Code) Assessment Notes Treatment Notes Treatment Clinical Notes Section Notes 09/27/2024 Chronic migraine without aura, not intractable, [...] keep scheduled follow-up appointments Plan Of Treatment Medication Medication Name Sig Start Date Stop Date Notes Nurtec 75 MG 1 tablet Orally once daily for 30 days 09/27/2024 Rizatriptan Benzoate 10 MG 1 tablet Orally twice daily Treatment Notes Assessment Notes Chronic migraine without aur a, not intractable, without status migrainosus -Abortive treatment plan: Continue rizatriptan. Start Nurtec.-Preventive treatment plan: Continue Botox. -Educated the patient [...] daily as supplements; keep scheduled follow-up appointments Next Appt Details Follow Up: 3 Months, Reason: Evaluation and Management. Toxin injection Provider Name:Sherry galvin, 12/20/2024 11:00:00 AM, [facility] [address], [place], [address], Procedure Notes * Category Sub-Category Detail Notes Toxin Administration onabotulinumtoxinA (BOTOX) Administration Indication: Chronic Migraine Locations and Dosages: Proce talha 5 Units, College Hire (Left) 5 Units, College Hire (Right) 5 Units, Frontalis (Left) 12.5 Units, Frontalis (Right) 12.5 Units, Temporalis (Left) 30 Units, Temporalis (Right) 30 Units, Occipitalis (Left) 25 Units, Occipitalis (Right) 25 Units, Cervical Paraspinal (Left) 10 Units, Cervical Paraspinal (Right) 10 Units, Trapezius (Left) 15 Units, Trapezius (Right) 15 Units Frequency: 12 weeks Lot Number / Expiration: See Notes Onabotuinumtoxin A 200 Units BB Botox Lot [id number] Exp 12/2026 Medication Source:: Buy and Bill Source Verification:: Who pu lled drug (please type staff name in notes)? Yoselin Diego Units Administered:: 200 Units Units Wasted:: 0 Units Adverse Reaction(s): None Progress Notes * Nicky ESPOSITOaDOB: 6 (39 yo F)Acc No.[id number]:09/27/2024 Progress Notes Patient:?Mary ESPOSITO Provider:?Sherry Diego APRN :1985???Age:38 Y???Sex:Female D ate:09/27/2024 Address:[address] [place], [place] [id number] Pcp:Dr. Alena Kessler Subjective: * Chief Complaints: * ???Botox Only * HPI: ???*Introduction:?I had the pleasure of seeing?Mary Esposito, who presented for follow-up for Botox.?*Initial History:?INITIAL VISIT HISTORY: This is a 38 year old woman with a history of migraine, Grave's disease on methimazole, who is here for migraine headaches. ? Headache History: -Headache Onset: Age [age] -Headache Description: Prodrome: None. Aura: None. Headache phase: Bilateral posterior/vertex, reaches peak intensity 30-60 minutes, throbbing pain, restricts activity, associated with light/sound sensitivity, associated with nausea, associated with dizziness, associated with blurry vision. -Headache Triggers: Interrupted sleep, wine -Headache Frequency: The patient is currently experiencing 30 Headache days/month and 4 Migraine days/month. She has developed a chronic daily headache pattern for the last year. She has at least a mild headache everyday. ???*Previous Impression & Plan:?Notes? Previous Diagnoses: 1. Chronic migraine without aura, not intractable, without status migrainosus - G43.709 (Primary) 2. Myalgia, unspecified site - M79.10, parascapular myofascial pain Previous Recommendations: 1. Abortive: Gave samples of Nurtec and Zavspret on last visit- not yet used. Preventive: Continue Botox injections. 2. Parascapular myofascial pain improved with Botox.?*Interval History:?Notes? Pharmacologic Treatment: Current abortive treatment: Nurtec (effective), Excedrin for milder headaches; Rizatriptan 10 mg (effective, but causes sedation and then cannot function) Previous abortive treatment:?Sumatriptan (side effects), Fioricet (ineffective), Ubrelvy (ineffective), Zavzpret (ineffective) Current preventive treatment:?Botox (first injection was on 01/19/24). She feels like it has helped. The daily headaches are less intense or less bothersome, initially had some reduction in migraine intensity but not now later in cycle. Previous preventive treatment:?Propranolol (side effects; didn't like how she felt on it), Topiramate (side effects, didn't like how she felt on it), Qulipta (ineffective, took for > 2 month) Medication overuse:? Not present Headache Frequency: Initial/baseline headache/migraine days/month: 30/4 Last visit headache/migraine days/month: 20-25/1-2 Current headache/migraine days/month: 12-16/5-6 (more frequent over last 2 weeks while toxin wears off) Headache Scales: HIT-6:? Current score: not done .? Prior score: 64 Interval History: Last visit was on?07/05/2024 for Botox injection. She reports that she is doing well on Botox and her migraines have been less frequent and less intense. She does notice more migraines in weeks 10-12 of the Botox cycle as the toxin wears off. She used more of her rescue medication over the last two weeks.?k. ???*Headache:? Last injection on 07/05/24: Procerus 5 Units, College Hire (Left) 5 Units, College Hire (Right) 5 Units, Frontalis (Left) 12.5 Units, Frontalis (Right) 12.5 Units, Temporalis (Left) 30 Units, Temporalis (Right) 30 Units, Occipitalis (Left) 25 Units, Occipitalis (Right) 25 Units, Cervical Paraspinal (Left) 10 Units, Cervical Paraspinal (Right) 10 Units, Trapezius (Left) 15 Units, Trapezius (Right) 15 Units. * ROS:?ALLERGY:?runny nose?No.?scratchy throat?No.?itchy eyes?No.?ear fullness?No.?sinus congestion?No.?SPECIAL SENSES:?cataracts?No.?glaucoma?No.?loss of hearing?No.?itching in ears?No.?ringing in ears?No.?loss of balance?No.?loss of smell?No.?dry eyes?No.?excessive tearing?No.?itching eyes No.?loss of taste?No.?conjunctivitis?No.?ear infections?No.?CONSTITUTIONAL:?night sweats?No.?weight gain?No.?loss of appetite?No.?fever?No.?weakness?No.?weight loss?No.?fatigue?No.?ENT:?cold?No.?cough?No.?epistaxis?No.?hearing loss?No.?change in voice?No.?sore throat?No.?ringing in ears?No.?sinus pain?No.?RESPIRATORY:?shortness of breath?No.?chest pain?No.?chest congestion?No.?cough?No.?OPHTHALMOLOGY:?itching?No.?sensitivity to light?No.?discharge?No.?watering?No.?swelling of the eyelids?No.?redness?No.?diminished vision?No.?eye irritation?No.?drainage from eyes?No.?blurring of vision?No.?seasonal eye sx?No.?ENDOCRINOLOGY:?fatigue?No.?polydipsia?No.?polyuria?No.?sleep disturbance?No.?cold intolerance?No.?heat intolerance?No.?diabetes?No.?CARDIOLOGY:?dizziness?No.?chest pain?No.?palpitations?No.?leg edema?No.?shortness of breath?No.?GASTROENTEROLOGY:?nausea?No.?indigestion?No.?hemorrhoids?No.?vomiting?No.?dysphagia?No.?abdo pratima pain?No.?diarrhea?No.?constipation?No.?blood in stool?No.?UROLOGY:?difficulty urinating?No.?blood in urine?No.?frequent urination?No.?urinary incontinence?No.?recurrent UTI?No.?DERMATOLOGY:?rash?No.?mole?No.?lumps?No.?dry or sensitive skin?No.?hives (urticaria)?No.?acne?No.?skin cancer?No.?NEUROLOGY:?headache?Yes,No.?tingling numbness?No.?seizures?No.?insomnia?No.?memory loss?No.?dizziness?No.?gait abnormality?No.?HEMATOLOGY/LYMPH:?Positive for?Patient denies history of excessive bruising or bleeding diasthesis.?MUSCULOSKELETAL:?gout?No.?joint stiffness?No.?leg cramps?No.?joint pain?No.?joint swelling?No.?sciatica?No.?osteoporosis?No.?fracture?No.?carpal tunnel?No.?PSYCHOLOGY:?depression?No.?high stress level?No.?sleep disturbances?No.?suicidal ideation?No.?eating disorder?No.?mental or physical abuse?No.?anxiety?No.?FEMALE REPRODUCTIVE:?heavy periods?No.?hot flashes?No.?abnormal vaginal discharge?No.?sexually active?No.?infertility?No.?frequent yeat infections?No.?pelvic pain?No.?breast pain?No.?nipple discharge?No.?Are you ??No.?Are you planning on a future pregancy??No.? * Medical History:? * Surgical History:? * Hospitalization/Major Diagno stic Procedure:? * Family History:?Father: No.? Mother: No.?Paternal Grand Father: No.?Paternal Grand Mother: No.?Maternal Grand Father: No.?Maternal Grand Mother: No.?Siblings: No.?Children: No.? Not aware of a family history of migraine. * Social History:?Smoking?Have you ever smoked tobacco:?never smoked ?Additional Findings: Tobacco Non-User?Aggressive non-smoker ?Are you a :?never smoker ???Recreational drug use?Have you ever used recreational drugs??Yes ?What kind of drugs??marijuana ???Details on consumption of certain products?Do you regularly consume products with aspartame; Equal or NutraSweet??No ?Do you regularly consume products with artificial coloring??No ?Have you ever noticed worsening of your rash with these food items??No ???Exercise?What kind(s) of exercise do you perform regularly??walking,jogging,biking,cardio ?How often do you perform this exercise??weekly ???Are any of the following personal care products containing fragrance, dye or preservatives used regularly?Shampoo:?No ?Conditioner:?No ?Soap:?No ?Laundry Detergent:?No ?Fabric Softener:?No ?Deodorant:?No ?Perfume, cologne, after shave:?No ?Air freshners or other scented products:?No ?Hair coloring dyes or rinses:?No ?Other:?No ???Occupation?Are you currenly employed??Yes ?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 ?Do you have any pending or planned legal action against your current or former employer which pertains to your medical illness??No ?Do you anticipate that your evaluation will be used in any legal action against your current employer or former employer??No ?Have you had any job with high exposure to fumes, chemicals, dust or other noxious substances??No ?Are you currently a student??No ???Environmental History?Living environment:?private home ?Where is the home located??suburb ?How long have you lived there??2-4 years ?How many people live in the home??20 ???Home description?Basement:?Yes ?Any water damage in basement??No ?Smokers in the home??No ?Smokers outside the home??No ?Air Conditioning??Yes ?Central Air??Yes ?Forced air heating??Yes ?Gas or electric??electric ?Fireplace??Yes ?Wood burning stove??No ?Do you vacuum the home??Yes ?Air purification systems??Yes ?Is it a HEPA (high-efficiency particulate air filter)??Yes ?Ionizer on air purification system??Yes ?Pillow and mattress dust-proof encasings??Yes ?Do you use a humidifier??Yes ?Whole house or room??room humidifier ?Does it have a humidistat??No ?Is it used year-round, seasonal, or as needed??as needed ?Is the humidifier cleaned regularly??Yes ?Do you own any pets??Yes ?What kind(s)? (click all that apply)?dog ?Where do your pets sleep??bedroom ?Fabric softeners used??Yes ?Plants in the home??No ?Is there carpeting in your bedroom??Yes ?Do you have [id number] carpeting??No ?What is the age of your mattress (years)??1 ?What material(s) are used to manufacture your bedding and pillow??natural fiber (e.g. cotton) ?What is the age of your pillow (years)??1 ?What material are your bedding items made of??natural fiber (e.g. cotton) ?Do you sleep with quilts or blankets or a duvet??Yes ?What material??natural fiber (e.g. cotton) ?How many dogs??1 ???Non-smoker. * Medications:?TakingRizatript an Benzoate 10 MG Tablet 1 tablet Orally twice daily As neededmethIMAzole 5 MG Tablet 1 tablet Orally Once a day Taking Rizatriptan Benzoate 10 MG Tablet 1 tablet Orally twice daily As neededTaking methIMAzole 5 MG Tablet 1 tablet Orally Once a day * Allergies:?N.K.D.A.no[Allerg ies Verified] Objective: * Vitals:? * Examination: ???General examination: ?General appearance:?Pleasant, well-developed, no distress.?HEENT:?No papilledema.?Mild bilateral proptosis..?Neurologic exam:?Alert and oriented x 4. Fluent speech. CN II-XII intact.?Motor 5/5 strength in all extremities. Reflexes 2+/2 and symmetric in all extremities.? Gait normal.? Assessment: * Assessment: 1.?Chronic migraine without aura, not intractable, without status migrainosus - G43.709 (Primary)??? Plan: * Treatment: * Procedures:?Toxin Administration:?onabotulinumtoxinA (BOTOX) Administration ?Indication?Chronic Migraine ?Locations and Dosages?Procerus 5 Units, College Hire (Left) 5 Units, College Hire (Right) 5 Units, Frontalis (Left) 12.5 Units, Frontalis (Right) 12.5 Units, Temporalis (Left) 30 Units, Temporalis (Right) 30 Units, Occipitalis (Left) 25 Units, Occipitalis (Right) 25 Units, Cervical Paraspinal (Left) 10 Units, Cervical Paraspinal (Right) 10 Units, Trapezius (Left) 15 Units, Trapezius (Right) 15 Units ?Frequency?12 weeks ?Lot Number / Expiration?See Notes Onabotuinumtoxin A200 Units BBBotox Lot [id number] 12/2026 ?Medication Source:?Buy and Bill ?Source Verification:?Who pulled drug (please type staff name in notes)? Yoselin Diego ?Units Administered:?200 Units ?Units Wasted:?0 Units ?Adverse Reaction(s)?None? * Procedure Codes:?38723 CHEMO DENERV MUSC [id number] BOTULINUM TOXIN TYPE A PER UNIT, Units: 200.00 , Modifiers: ACE G8427 DOC MEDS VERIFIED W/PT OR [id number] Complex e/m visit add on * Follow Up:?3 Months (Reason: Evaluation and Management. Toxin injection) * Billing Information: * Visit Code:? 82160 Office Visit, Est Pt., Level 3. Modifiers: 25 * Procedure Codes:? 74866 CHEMODENERV MUSC MIGRAINE. J0585 BOTULINUM TOXIN TYPE A PER UNIT. Units: 200.00. Modifiers: ACE G8427 DOC MEDS VERIFIED W/PT OR RE. G2211 Complex e/m visit add on. * MOTIVE COLLISION ESTIMATOR Electronically co-signed by Dr. Bradford Schaffer MD on 10/04/2024 at 01:40 PM AUTOMOTIVE COLLISION ESTIMATOR Sign off status: Completed true * Provider:?Sherry Diego APRN Date:? Generated for Printi ng/Famarthag/eTransmitting on:?10/10/2024 06:00 PM AUTOMOTIVE COLLISION ESTIMATOR History and Physical Notes * HPI (History of Present Illness) Category Sub-Category Detail Notes Category Notes *Introduction I had the pleasure of seeing Mary Esposito, who presented for follow-up for Botox *Headache Last injection on 07/05/24: Procerus 5 Units, College Hire (Left) 5 Units, College Hire (Right) 5 Units, Frontalis (Left) 12.5 Units, Frontalis (Right) 12.5 Units, Temporalis (Left) 30 Units, Temporalis (Right) 30 Units, Occipitalis (Left) 25 Units, Occipitalis (Right) 25 Units, Cervical Paraspinal (Left) 10 Units, Cervical Paraspinal (Right) 10 Units, Trapezius (Left) 15 Units, Trapezius (Right) 15 Units *Initial History INITIAL VISIT HISTORY: This is a 38 year old woman with a history of migraine, Grave's disease on methimazole, who is here for migraine headaches. Headache History: -Headache Onset: Age [age] -Headache Description: Prodrome: None. Aura: None. Headache phase: Bilateral posterior/vertex, reaches peak intensity 30-60 minutes, throbbing pain, restricts activity, associated with light/sound sensitivity, associated with nausea, associated with dizziness, associated with blurry vision. -Headache Triggers: Interrupted sleep, wine -Headache Frequency: The patient is currently experiencing 30 Headache days/month and 4 Migraine days/month. She has developed a chronic daily headache pattern for the last year. She has at least a mild headache everyday *Previous Impression & Plan Notes Previous Diagnoses:1. Chroni c migraine without aura, not intractable, without status migrainosus - G43.709 (Primary)2. Myalgia, unspecified site - M79.10, parascapular myofascial painPrevious Recommendations:1. Abortive: Gave samples of Nurtec and Zavspret on last visit- not yet used. Preventive: Continue Botox injections.2. Parascapular myofascial pain improved with Botox *Interval History Notes Pharmacologic Treatment:Curr ent abortive treatment: Nurtec (effective), Excedrin for milder headaches; Rizatriptan 10 mg (effective, but causes sedation and then cannot function)Previous abortive treatment: Sumatriptan (side effects), Fioricet (ineffective), Ubrelvy (ineffective), Zavzpret (ineffective)Current preventive treatment: Botox (first injection was on 01/19/24). She feels like it has helped. The daily headaches are less intense or less bothersome, initially had some reduction in migraine intensity but not now later in cycle.Previous preventive treatment: Propranolol (side effects; didn't like how she felt on it), Topiramate (side effects, didn't like how she felt on it), Qulipta (ineffective, took for > 2 month)Medication overuse: Not presentHeadache Frequency:Initial/baseline headache/migraine days/month: 30/4Last visit headache/migraine days/month: 20-25/1-2Current headache/migraine days/month: 12-16/5-6 (more frequent over last 2 weeks while toxin wears off)Headache Scales:HIT-6: Current score: not done . Prior score: 64Interval History:Last visit was on 07/05/2024 for Botox injection. She reports that she is doing well on Botox and her migraines have been less frequent and less intense. She does notice more migraines in weeks 10-12 of the Botox cycle as the toxin wears off. She used more of her rescue medication over the last two weeks k Examination Category Sub-Category Detail Notes Category Not es General examination HEENT: No papillede ma. Mild bilateral proptosis. General appearance: Pleasant, well-devel oped, no distress Neurologic exam: Alert and oriented x 4. Fluent speech. CN II-XII intact. Motor 5/5 strength in all extremities. Reflexes 2+/2 and symmetric in all extremities. Gait normal
--- OUTSIDE RECORDS SUMMARY | 2024-10-10 18:00 | XMS_ITS | Referral Summary ---
Author Organization [facility] [address] Address [facility] [place] [address] Care Team Providers Care Banker Mason Name Role Phone Alena Verma MD Primary Care Provider Allergies Active Allergy Reactions Criticality Noted Date Comments Shellfish Containing Products Medications azelaic acid (Azelex) 20 % cream To face qhs 7 Active butalbitaL-acet [id number]-tee [id number] mg capsule TAKE 1 CAPSULE BY MOUTH [...] Noted Date Diagnosed Date Acne vulgaris 03/03/2017 Social History Tobacco Use Types Packs/Day Years [...] on file Legal Sex Female 3:56 AM RN GYNECOLOGY Gender Identity Not on file Sexual Orientation Not on file Last Filed Vital Signs Vital Sign Reading Time Taken Comments Blood Pressure - - Pulse - - Temperature - - Respiratory Rate - - Oxygen Saturation - - Inhaled Oxygen Concentration - - Weight 61.7 kg (136 lb) 05/25/2023 12:04 PM CDT Height 160 cm (5' 3 ) 05/25/2023 12:04 PM CDT Body Mass Index 24.09 05/25/2023 12:04 PM CDT Plan of Treatment Not on file Insurance [facility] Care Teams Banker Mason Relationship Specialty Start Date End Date Alena Verma MD [address] [facility] [address] [place] [address] PCP - General Family Medicine 07/29/21
--- OUTSIDE RECORDS SUMMARY | 2024-10-10 18:00 | XMS_ITS ---
Author Organization [facility] Address [address] [place] [address] Care Team Providers Care Product Development Intern Name Role Phone Dr. Alena Kessler Primary Care Provider Un available Dr. Bradford Schaffer Unavailable [phone] Sherry Deigo Unavailable [phone] REASON FOR VISIT Botox Only Medications Medication SIG (Take, Route, Frequency, Duration) Notes Start Date End Date Status methIMAzole 5 MG 1 tablet Orally Once a day Active Rizatriptan Benzoate 10 MG 1 tablet Orally twice daily As needed Active Encounters Encounter Location Date Provider Diagnosis [facility] [address] [place] [address] 07/05/2024 Sherry Diego Chronic migraine without aura, not intractable, without status migrainosus G43.709 Assessments Encounter Date Diagnosis (ICD Code) Assessment Notes Treatment Notes Treatment Clinical Notes Section Notes 07/05/2024 Chronic migraine without aura, not intractable, without status migrainosus (ICD-10 - G43.709) Plan Of Treatment Next Appt Details Follow Up: 3 Months, Reason: Toxin injection Provider Name:Sherry galvin, 12/20/2024 11:00:00 AM, [address], [address], [place], [address], Procedure Notes * Category Sub-Category Detail Notes Toxin Administration onabotulinumtoxinA (BOTOX) Administration Indication: Chronic Migraine Locations and Dosages: Proce talha 5 Units, Salvage Machine Operator (Left) 5 Units, Salvage Machine Operator (Right) 5 Units, Frontalis (Left) 12.5 Units, Frontalis (Right) 12.5 Units, Temporalis (Left) 30 Units, Temporalis (Right) 30 Units, Occipitalis (Left) 25 Units, Occipitalis (Right) 25 Units, Cervical Paraspinal (Left) 10 Units, Cervical Paraspinal (Right) 10 Units, Trapezius (Left) 15 Units, Trapezius (Right) 15 Units Frequency: 12 weeks Lot Number / Expiration: See Notes Botox Lot# [id number], Exp 11/2026 Medication Source:: Buy and Bill Units Administered:: 200 Units Units Wasted:: 0 Units Adverse Reaction(s): None Progress Notes * STEPHYAyoB: 6 (38 yo F)Acc No.[id number]:07/05/2024 Progress Notes Patient:?Mary ESPOSITO Provider:?Sherry Diego APRN :1985???Age:38 Y???Sex:Female D ate:07/05/2024 Address:[address] [place], [place] [id number] Pcp:Dr. Alena Kessler Subjective: * Chief Complaints: * ???Botox Only * HPI: ???*Headache:? Last injection on 04/12/24: Procerus 5 Units, Salvage Machine Operator (Left) 5 Units, Salvage Machine Operator (Right) 5 Units, Frontalis (Left) 12.5 Units, Frontalis (Right) 12.5 Units, Temporalis (Left) 30 Units, Temporalis (Right) 30 Units, Occipitalis (Left) 25 Units, Occipitalis (Right) 25 Units, Cervical Paraspinal (Left) 10 Units, Cervical Paraspinal (Right) 10 Units, Trapezius (Left) 15 Units, Trapezius (Right) 15 Units -Current abortive treatment: Samples of Nurtec and Sly NS, Excedrin for milder headaches; Rizatriptan 10 mg (effective, but causes sedation and then cannot function) -Previous abortive treatment: Sumatriptan (side effects), Fioricet (ineffective), Ubrelvy (ineffective) -Current preventive treatment: Botox (first injection was on 01/19/24). She feels like it has helped. The daily headaches are less intense or less bothersome, initially had some reduction in migraine intensity but not now later in cycle. -Previous preventive treatment: Propranolol (side effects; didn't like how she felt on it), Topiramate (side effects, didn't like how she felt on it), Qulipta (ineffective, took for > 2 month) Baseline Headache/Migraine Frequency (prior to Botox)?(days/month):?09/01 Last Injection Visit Headache/Migraine frequency:?20-25/1-2 Current Headache/Migraine Frequency?(days/month): 15-20/1-2 (more frequent over the last two weeks of Botox cycle). * Medical History:? * Surgical History:? * Hospitalization/Major Diagno stic Procedure:? * Medications:?TakingRizatript an Benzoate 10 MG Tablet 1 tablet Orally twice daily As neededmethIMAzole 5 MG Tablet 1 tablet Orally Once a day Taking Rizatriptan Benzoate 10 MG Tablet 1 tablet Orally twice daily As neededTaking methIMAzole 5 MG Tablet 1 tablet Orally Once a day Objective: * Vitals:? Assessment: * Assessment: 1.?Chronic migraine without aura, not intractable, without status migrainosus - G43.709 (Primary)??? Plan: * Treatment: * Procedures:?Toxin Administration:?onabotulinumtoxinA (BOTOX) Administration ?Indication?Chronic Migraine ?Locations and Dosages?Procerus 5 Units, Salvage Machine Operator (Left) 5 Units, Salvage Machine Operator (Right) 5 Units, Frontalis (Left) 12.5 Units, Frontalis (Right) 12.5 Units, Temporalis (Left) 30 Units, Temporalis (Right) 30 Units, Occipitalis (Left) 25 Units, Occipitalis (Right) 25 Units, Cervical Paraspinal (Left) 10 Units, Cervical Paraspinal (Right) 10 Units, Trapezius (Left) 15 Units, Trapezius (Right) 15 Units ?Frequency?12 weeks ?Lot Number / Expiration?See Notes Botox Lot# [id number], Exp 11/2026 ?Medication Source:?Buy and Bill ?Units Administered:?200 Units ?Units Wasted:?0 Units ?Adverse Reaction(s)?None? * Procedure Codes:?13635 CHEMO DENERV MUSC [id number] BOTULINUM TOXIN TYPE A PER UNIT, Units: 200.00 , Modifiers: JZ * Follow Up:?3 Months (Reason: Toxin injection) * Billing Information: * Visit Code:? * Procedure Codes:? 81174 CHEMODENERV MUSC MIGRAINE. J0585 BOTULINUM TOXIN TYPE A PER UNIT. Units: 200.00. Modifiers: JZ * Sign off status: Completed true * Provider:?Sherry Diego APRN Date:? 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 History and Physical Notes * HPI (History of Present Illness) Category Sub-Category Detail Notes Category Not es *Headache Last injection on 04/12/24: Procerus 5 Units, Salvage Machine Operator (Left) 5 Units, Salvage Machine Operator (Right) 5 Units, Frontalis (Left) 12.5 Units, Frontalis (Right) 12.5 Units, Temporalis (Left) 30 Units, Temporalis (Right) 30 Units, Occipitalis (Left) 25 Units, Occipitalis (Right) 25 Units, Cervical Paraspinal (Left) 10 Units, Cervical Paraspinal (Right) 10 Units, Trapezius (Left) 15 Units, Trapezius (Right) 15 Units -Current abortive treatment: Samples of Nurtec and Zavzpret NS, Excedrin for milder headaches; Rizatriptan 10 mg (effective, but causes sedation and then cannot function) -Previous abortive treatment: Sumatriptan (side effects), Fioricet (ineffective), Ubrelvy (ineffective) -Current preventive treatment: Botox (first injection was on 01/19/24). She feels like it has helped. The daily headaches are less intense or less bothersome, initially had some reduction in migraine intensity but not now later in cycle. -Previous preventive treatment: Propranolol (side effects; didn't like how she felt on it), Topiramate (side effects, didn't like how she felt on it), Qulipta (ineffective, took for > 2 month) Baseline Headache/Migraine Frequency (prior to Botox) (days/month): 30 Last Injection Visit Headache/Migraine frequency: 20-25/1-2 Current Headache/Migraine Frequency (days/month): 15-20/1-2 (more frequent over the last two weeks of Botox cycle)
[2024-10-10 18:13] VITALS: BP 115/77; PULSE 67; RESP 16; TEMP 36.7; O2SAT 100
--- NOTE | 2024-10-10 18:18 | ED.ABDPAIN ---
HPI - Abdominal Pain General Chief Complaint: Abdominal Pain Stated Complaint: right abd pain from urgent care Time Seen by Provider: 10/11/24 00:11 Focused HPI: This is a 39-year-old female who presents to the ED for chief complaint of right flank and right lower quadrant pain over the past several days but much worse today. Patient states she has had urinary frequency but no burning or gross blood. Denies fevers, chills, nausea, vomiting. Endorses history of ovarian cyst but states that her pain today is not as severe as the cyst pain she has had in the past. GENERAL: Well-appearing, well-nourished, and in no acute distress. HEAD: Normocephalic, atraumatic. CHEST: Clear to auscultation. No respiratory distress. HEART: Regular rate and rhythm. NEURO: Alert and oriented x3. Patient screened in triage and initial orders placed. Additional care and disposition to be based upon diagnostic testing and treatment. Source: patient Mode of arrival: ambulatory Limitations: no limitations Related Data Home Medications ?Medication ?Instructions ?Recorded ?Confirmed ?Last Taken ?Type methimazole 5 mg tablet 2.5 mg PO DAILY 10/26/23 09/14/24 Unknown History Allergies Allergy/AdvReac Type Severity Reaction Status Date / Time iodine Allergy Intermediate SWELLING Verified 09/14/24 11:01 shellfish derived Allergy Intermediate Swelling Verified 09/14/24 11:01 [facility] Past Medical History Medical History Menometrorrhagia Chronic tension-type headache, not intractable Body mass index (BMI) 23 or greater (03/31/17) Thyroid eye disease Anxiety Palpitations Chiari I malformation Elevated prolactin level Migraines Hyperthyroidism Graves disease Micromastia Goiter diffuse Pharyngitis Nasal polyp Tension headache Surgical History Surgical History H/O breast augmentation Family History Family History Father Family history of alcoholism Family history of liver disease, Onset Age: 46 Patient's father is Mother Carcinoma of colon, Onset Age: 33 Sibling Family history of malignant neoplasm of testis, Onset Age: 28 Social History Social History (Reviewed 10/10/24 @ 17:23 by MARCELLUS Newberry Social History: Smoking status: Never smoker Second hand tobacco smoke exposure: No Alcohol intake: current Alcohol use details: Socially Substance use: never Substance use type: does not use Do You Feel Safe in your Home?: Yes Lack of Transportation: No Lack of Food: Never True Current Housing: I Have Housing Concerned About Future Housing: No Difficulty Paying Gas/Electric Bills: No Difficulty Paying for Meds: No Currently Unemployed: No Education: Master's Degree or Higher Difficulty w/ Childcare or Family Care: No Living arrangements: with family Occupation/Education: occupation 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 Offered admission observation under Dr. Dwain Husain, a patient is politely declining. She feels comfortable going home and would like to follow-up outpatient. Date: 10/11/24 Time: 01:26 Consultations Consultation #1: Spoke with Dr. Dwain Husain (OBGYN): He does not feel that the patient needs to be admitted right now. He is 5 comfortable following up with this patient tomorrow in clinic unless her pain is not under control. States that if her pain is unable to be controlled he will admit tonight. Vital Signs Vital signs: Vital Signs Temperature 98.1 F 10/10/24 18:13 Pulse Rate 67 10/10/24 18:13 Respiratory Rate 16 10/10/24 18:13 Blood Pressure 115/77 10/10/24 18:13 Pulse Oximetry 100 10/10/24 18:13 Temperature 97.9 F 10/10/24 23:49 Pulse Rate 88 10/11/24 01:35 Respiratory Rate 18 10/11/24 01:35 Blood Pressure 131/77 10/11/24 01:35 Pulse Oximetry 99 10/11/24 01:35 MDM - Abdominal Pain MDM Narrative Medical decision making narrative: This is a 39-year-old female who presents to the ED for chief complaint of right lower quadrant abdominal pain and right flank pain. Vitals are normal. Exam is remarkable for the above. She is resting comfortably. Does not appear toxic. No rigidity or peritoneal signs on exam. Lab work shows CBC with normal white count and mild anemia with hemoglobin of 11.1. CMP unremarkable overall. Urinalysis shows trace blood but no other acute findings. CT abdomen pelvis without contrast: IMPRESSION: Normal appendix. Enlarged uterus, possibly due to fibroid disease. Exophytic fibroid versus nonsimple pelvic fluid in the cul-de-sac. Numerous pelvic phleboliths are shifted in position due to the change in uterine size but appear to be grossly stable. No definite calcification within the urinary bladder or within the path of the ureters.. Ultrasound pelvis: IMPRESSION: Multiple uterine fibroids. The prior CT finding of soft tissue density in the cul-de-sac is explained by an enlarged, 25 mL right ovary posterior to the uterus with peripheral follicles. Consider ovarian torsion in the differential given ovarian size and morphology. Vascular flow is maintained but this does not exclude torsion. Discussed the case with manager process excellence, and they feel that the patient can probably be discharged if pain is under control and does not appear toxic. She is feeling much better after 1 dose of Toradol. She is electing to home and will follow-up closely with OB. Strict return precautions were given. Patient will be discharged in stable condition. Patient is understanding and agreeable with plan for discharge with PCP follow-up. Lab Data 10/10/24 20:56 10/10/24 20:56 Labs: Lab Results 10/10/24 10/10/24 Range/Units 20:56 21:00 WBC 4.6 (4.5-10.0) K/mm3 RBC 3.49 L (4.2-5.4) M/mm3 Hgb 11.1 L (12.0-15.0) g/dL Hct 33.6 L (37.0-47.0) % MCV 96.3 (80-100) fl MCH 31.8 (26-34) pg MCHC 33.0 (32-36) g/dl RDW 12.9 (11.5-14.5) % Plt Count 218 (150-375) k/mm3 MPV 9.4 (7.4-10.4) fl Immature Gran % (Auto) 0.0 (0-0.5) % Neut % (Auto) 21.8 L (45.5-73.1) % Lymph % (Auto) 65.7 H (18.3-44.2) % [place] % (Auto) 10.4 H (2.6-8.5) % Eos % (Auto) 1.7 (0-4.4) % Baso % (Auto) 0.4 (0.2-1.2) % Lymph # (Auto) 3.03 (0.9-3.2) K/mm3 [place] # (Auto) 0.5 (0.1-0.6) K/mm3 Eos # (Auto) 0.1 (0-0.3) K/mm3 Baso # (Auto) 0.0 (0.0-0.1) K/mm3 Abs Immat Gran (auto) 0.00 (0.00-0.031) K/mm3 Absolute Neuts (auto) 1.0 L (1.3-6.7) K/mm3 Absolute Nucleated RBC 0.000 (0.0-0.012) K/mm3 Nucleated RBC % 0.0 (0.0-0.2) % Sodium 139 (137-145) mmol/L Potassium 4.1 (3.4-5.0) mmol/L Chloride 105 (98-107) mmol/L Carbon Dioxide 24 (22-30) mmol/L Anion Gap 10 (4-12) mmol/L BUN 10 (7-17) mg/dL Creatinine 0.61 L (0.7-1.0) mg/dL Estim Creat Clear Calc 87 ml/min Estimated GFR > 60 (59 - ) Glucose 89 (65-110) mg/dL Calcium 9.2 (8.4-10.2) mg/dL Total Bilirubin 0.4 (0.2-1.3) mg/dL AST 32 (14-36) U/L ALT 26 (6-35) U/L Alkaline Phosphatase 63 (38-126) U/L Total Protein 8.0 (6.3-8.2) g/dL Albumin 4.4 (3.5-5.1) g/dL Lipase 60 (23-300) U/L Urine Color Yellow (Yellow) Urine Appearance Clear (Clear) Urine pH 7.5 (5.0-9.0) Ur Specific Pilot 1.007 (1.001-1.035) Urine Protein Negative (Negative) mg/dL Urine Glucose (UA) Negative (Negative) mg/dL Urine Ketones Negative (Negative) mg/dL Ur Blood (Man) Non-hemolyzed trace H (Negative) Urine Nitrate Negative (Negative) Urine Bilirubin Negative (Negative) Urine Urobilinogen 0.2 (<2.0) mg/dL Leukocyte Esterase Rfl Negative (Negative) DEISY/UL Urine RBC 3-5 H (0-2) /hpf Urine WBC 0-5 (0-3) /hpf Ur Squamous Epith Cells None seen (Few) /hpf Urine Bacteria None seen /hpf Urine Casts 0-2 POC Urine HCG, Qual Negative (Negative) Imaging Data Radiologist's impression: ITS Impressions Abdomen/Pelvis CT 10/10/24 21:37 IMPRESSION: Normal appendix. Enlarged uterus, possibly due to fibroid disease. Exophytic fibroid versus nonsimple pelvic fluid in the cul-de-sac. Numerous pelvic phleboliths are shifted in position due to the change in uterine size but appear to be grossly stable. No definite calcification within the urinary bladder or within the path of the ureters. Pelvis Ultrasound 10/10/24 23:21 IMPRESSION: Multiple uterine fibroids. The prior CT finding of soft tissue density in the cul-de-sac is explained by an enlarged, 25 mL right ovary posterior to the uterus with peripheral follicles. Consider ovarian torsion in the differential given ovarian size and morphology. Vascular flow is maintained but this does not exclude torsion. Discharge Plan Discharge Clinical Impression: Right lower quadrant abdominal pain, Ovarian enlargement, right Patient Disposition: Home, Self-Care Condition: Stable Instructions: Antibiotic Form Additional Instructions: Exam and imaging today show enlarged ovary on the right side. Please follow-up with OBGYN 1st thing tomorrow. Please continue to take Toradol as prescribed for pain control. If you have any new or worsening symptoms please return to the ER for further evaluation. Patient Language: Thai Prescriptions: New ketorolac 10 mg tablet 10 mg PO Q8H PRN (Reason: pain) Qty: 15 0RF Rx Instructions: maximum total duration of 5 days from all oral, intranasal, or parenteral formulations No Action fluticasone propionate 50 mcg/actuation spray,suspension 1 spray intranasal DAILY Qty: 16 0RF Rx Instructions: administer into each nostril omeprazole 20 mg capsule,delayed release(DR/EC) 20 mg PO DAILY Qty: 90 0RF methimazole 5 mg tablet 2.5 mg PO DAILY rizatriptan [Maxalt] 10 mg tablet 10 mg PO ONCE PRN (Reason: migraine headache) Qty: 10 3RF Rx Instructions: as a single dose clobetasol 0.05 % cream See Rx Instructions .ROUTE .COMPLEX Qty: 15 0RF Dose Instruction: APPLY TOPICALLY TO THE AFFECTED AREA EVERY DAY AT BEDTIME Rx Instructions: APPLY TOPICALLY TO THE AFFECTED AREA EVERY DAY AT BEDTIME Follow-up/Referrals: David Anderson MD [Primary Care Provider] - Etienne Healy MD [Physician] - Time of Disposition: 01:27
[2024-10-10 21:02] LABS: Basophils Percent Auto 0.4 % (0.2-1.2); Eosinophils Absolute Auto 0.1 K/mm3 (0-0.3); Eosinophils Percent Auto 1.7 % (0-4.4); Hematocrit 33.6 % (37.0-47.0); Hemoglobin 11.1 g/dL (12.0-15.0); Lymphocytes Absolute Auto 3.03 K/mm3 (0.9-3.2); Lymphocytes Percent Auto 65.7 % (18.3-44.2); Mean Corpuscular Hemoglobin 31.8 pg (26-34); Mean Corpuscular Volume 96.3 fl (80-100); Mean Platelet Volume 9.4 fl (7.4-10.4); Monocytes Absolute Auto 0.5 K/mm3 (0.1-0.6); Monocytes Percent Auto 10.4 % (2.6-8.5); Neutrophils Percent Auto 21.8 % (45.5-73.1); Platelet Count Result 218 k/mm3 (150-375); Red Blood Count 3.49 M/mm3 (4.2-5.4); Red Cell Distribution Width 12.9 % (11.5-14.5); White Blood Count 4.6 K/mm3 (4.5-10.0)
[2024-10-10 21:06] LABS: Add Urine Microscopic? NO; Appearance Urine Clear (Clear); Bacteria Urine None Seen /hpf; Bilirubin Urine Negative (Negative); Blood Urine Non-Hemolyzed Trace (Negative); Color Urine Yellow (Yellow); Glucose Urine UA Negative (Negative); Ketones Urine Negative (Negative); Leukocyte Esterase Ur Negative LEU/UL (Negative); Nitrate Urine Negative (Negative); Non Pathogenic Casts 0-2; Protein Urine Negative (Negative); Specific Grav Ur 1.007 (1.001-1.035); Squamous Epithelial Cell Urine None Seen /hpf (Few); Urobilinogen Urine 0.2 mg/dL (<2.0); WBC Urine 0-5 /hpf (0-3); pH Urine 7.5 (5.0-9.0)
[2024-10-10 21:06] LABS: BEDSIDEPREGUCG Negative (Negative)
[2024-10-10 21:13] LABS: Alanine Aminotransferase 26 U/L (6-35); Albumin Level 4.4 g/dL (3.5-5.1); Alkaline Phosphatase 63 U/L (38-126); Anion Gap 10 mmol/L (4-12); Aspartate Amino Transferase 32 U/L (14-36); Bilirubin,Total 0.4 mg/dL (0.2-1.3); Blood Urea Nitrogen 10 mg/dL (7-17); Calcium 9.2 mg/dL (8.4-10.2); Carbon Dioxide 24 mmol/L (22-30); Chloride 105 mmol/L (98-107); Estimated CRCL calculation 87 ml/min; Estimated Glomerular Filt Rate > 60; Glucose 89 mg/dL (65-110); Lipase 60 U/L (23-300); Potassium 4.1 mmol/L (3.4-5.0); Sodium 139 mmol/L (137-145)
[2024-10-10 23:49] VITALS: BP 123/74; PULSE 63; RESP 17; TEMP 36.6; O2SAT 100
--- OUTSIDE RECORDS SUMMARY | 2024-10-11 00:26 | XMS_ITS | Referral Summary ---
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
--- OUTSIDE RECORDS SUMMARY | 2024-10-11 00:26 | XMS_ITS | Clinical Summary ---
Author Organization [facility] Address [address] [place] [address] Care Team Providers Care Clutch Operator Name Role Phone Alena Verma MD Primary Care Provider + Source Comments [facility],non-owned Affiliates and Associated Physician Practices is amultiple site organization consisting of ambulatory clinics and hospital sitesin [place], [place], [place] and [place]. This disclosure is being madepursuant to the Care Everywhere program and may not contain all information available regarding this patient. Last updated 18.[facility] Active Problems Problem Noted Date Diagnosed [...] age to complete this topic Care Teams Clutch Operator Relationship Specialty Start Date End Date Alena Verma MD [address] [place] [address] PCP - General 07/17/18
--- OUTSIDE RECORDS SUMMARY | 2024-10-11 00:26 | XMS_ITS ---
Author Organization [facility] Address [address] [place] [address] Care Team Providers Care Film Sound Coordinator Name Role Phone Dr. Alena Kessler Primary Care Provider Un available Dr. Bradford Schaffer Unavailable [phone] Sherry Diego Unavailable [phone] Allergies No Known Allergies REASON FOR VISIT [...] Active Encounters Encounter Location Date Provider Diagnosis [facility] [address] [place] [address] [place] [address] 09/27/2024 Sherry Diego Chronic migraine without aura, [...] Provider Name:Sherry galvin, 12/20/2024 11:00:00 AM, [address] [facility], [address], Procedure Notes * Category Sub-Category Detail Notes Toxin Administration onabotulinumtoxinA (BOTOX) Administration Indication: Chronic Migraine Locations and Dosages: Proce talha 5 Units, Welder Explosion (Left) 5 Units, Welder Explosion (Right) 5 Units, Frontalis (Left) 12.5 Units, Frontalis (Right) 12.5 Units, Temporalis (Left) 30 Units, Temporalis (Right) 30 Units, Occipitalis (Left) 25 Units, Occipitalis (Right) 25 Units, Cervical Paraspinal (Left) 10 Units, Cervical Paraspinal (Right) 10 Units, Trapezius (Left) 15 Units, Trapezius (Right) 15 Units Frequency: 12 weeks Lot Number / Expiration: See Notes Onabotuinumtoxin A 200 Units BB Botox Lot [id number] 12/2026 Medication Source:: Buy and Bill Source Verification:: Who pu lled drug (please type staff name in notes)? Yoselin Diego Units Administered:: 200 Units Units Wasted:: 0 Units Adverse Reaction(s): None Progress Notes * Nicky ESPOSITOaDOB: 6 (39 yo F)Acc No.[id number]:09/27/2024 Progress Notes Patient:?Mary ESPOSITO Provider:?Sherry Diego APRN :1985???Age:38 Y???Sex:Female D ate:09/27/2024 Address:[address] [place], [place] [address] Pcp:Dr. 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 [...] carpeting in your bedroom??Yes ?Do you have zjzu-gq-aedk carpeting??No ?What is the age of your [...] ?Indication?Chronic Migraine ?Locations and Dosages?Procerus 5 Units, Welder Explosion (Left) 5 Units, Welder Explosion (Right) 5 Units, Frontalis (Left) 12.5 Units, Frontalis (Right) 12.5 Units, Temporalis (Left) 30 Units, Temporalis (Right) 30 Units, Occipitalis (Left) 25 Units, Occipitalis (Right) 25 Units, Cervical Paraspinal (Left) 10 Units, Cervical Paraspinal (Right) 10 Units, Trapezius (Left) 15 Units, Trapezius (Right) 15 Units ?Frequency?12 weeks ?Lot Number / Expiration?See Notes Onabotuinumtoxin A200 Units BBBotox Lot [id number] 12/2026 ?Medication Source:?Buy and Bill ?Source Verification:?Who pulled drug (please type staff name in notes)? Yoselin Diego ?Units Administered:?200 Units ?Units Wasted:?0 Units ?Adverse Reaction(s)?None? * Procedure Codes:?06207 CHEMO DENERV MUSC [id number] BOTULINUM TOXIN TYPE A PER UNIT, Units: 200.00 , Modifiers: ACE G8427 DOC MEDS VERIFIED W/PT OR [id number] Complex e/m visit add on * Follow Up:?3 Months (Reason: Evaluation and Management. Toxin injection) * Billing Information: * Visit Code:? 90663 Office Visit, Est Pt., Level 3. Modifiers: 25 * Procedure Codes:? 54551 CHEMODENERV MUSC MIGRAINE. J0585 BOTULINUM TOXIN TYPE A PER UNIT. Units: 200.00. Modifiers: ACE G8427 DOC MEDS VERIFIED W/PT OR RE. G2211 Complex e/m visit add on. * OGRAPHY COORDINATOR Electronically co-signed by Dr. Bradford Schaffer MD on 10/04/2024 at 01:40 PM PHOTOGRAPHY COORDINATOR Sign off status: Completed true * Provider:?Sherry Diego APRN Date:? Generated for Printi ng/Famarthag/eTransmitting on:?10/11/2024 12:26 AM PHOTOGRAPHY COORDINATOR History and Physical Notes * HPI (History of Present Illness) Category Sub-Category Detail Notes Category Notes *Introduction I had the pleasure of seeing Mary Esposito, who presented for follow-up for Botox *Headache Last injection on 07/05/24: Procerus 5 Units, Welder Explosion (Left) 5 Units, Welder Explosion (Right) 5 Units, Frontalis (Left) 12.5 Units, [...]
--- OUTSIDE RECORDS SUMMARY | 2024-10-11 00:26 | XMS_ITS | Referral Summary ---
Author Organization [facility] Address [address] [facility] [place] [address] Care Team Providers Care Cruller Maker Name Role Phone Alena Verma MD Primary Care Provider + Source Comments [facility],non-owned Affiliates and Associated Physician Practices is amultiple site organization consisting of ambulatory clinics and hospital sitesin [place], [place], [place] and [place]. This disclosure is being madepursuant to the Care Everywhere program and may not contain all information available regarding this patient. Last updated 18.[facility] Active Problems Problem Noted Date Diagnosed [...] of Treatment Not on file Care Teams Cruller Maker Relationship Specialty Start Date End Date Alena Verma MD [address] [place] [address] PCP - General 07/17/18
--- OUTSIDE RECORDS SUMMARY | 2024-10-11 00:26 | XMS_ITS | Patient Health Summary ---
Author Organization [facility] Address [address] [facility] [place] [address] Care Team Providers Care Mental Health Program Manager Name Role Phone Alena Verma MD Primary Care Provider + Note from [facility],non-owned Affiliates and Associated Physician Practices is amultiple site organization consisting of ambulatory clinics and hospital sitesin [place], [place], [place]. This disclosure is being madepursuant to the Care Everywhere program and may not contain all information available regarding this patient. Last updated 18.[facility] Active Problems Problem Noted Date Diagnosed Date [...] PM CDT Narrative 03/27/2013 5:26 PM CDT ?[facility] ? [facility] ?PHONE: ??FAX: ? Pat. Name: ?MARY REAVES Pat. No: ?[id number] Study Date: ?? 03/27/2013 ??4:28pm , Age: ? 1985, 27 Pregnancies: ?? 1 LMP: ?11/08/2012 GA by LMP: ?19w6d GA by US: ? 20w0d GA Selected: ??19w6d (LMP) DEV: ?08/15/2013 Referring MD: BRITNEY MURCIA MD Rotary Dryer Operator: ??Denisse Brown RDMS ICD9: ? 655.03 CPT4: ? 87204 Hist/Ind: ? Bilateral Choroid Plexus Cysts MEASUREMENTS & AGE ? GROWTH EVALUATION Measurement ??GA ? Range ? Srce %for GA Ratios ----- ---- ------- BPD ??4.8 cm 20w4d (78a7z-96p6x) Hadl BPD 66% FL/BPD 0.64 HC ??17.2 cm 19w5d (50g9a-26m3j) Hadl HC ??46% FL/AC ??0.20 AC ??15.2 cm 20w3d (37a5h-10o7e) Hadl AC ??61% HC/AC ??1.13 (1.06 - 1.25) FL ?? 3.1 cm 19w4d (29t6a-10f1x) Hadl FL ??41% CI ? 0.79 (0.70 - 0.86) HL ?? 2.9 cm 19w3d (30g8t-33r0m) Rylan HL ??42% GA for sonogram 20w0d (20j3j-67q8v) ?? Weight Estimate: based on (HL,BPD,HC,AC,FL) Avg [...] <Electronic Signature> ??03/27/2013 05:21pm Britney Murcia MD [facility] ORDERABLES Care Teams Mental Health Program Manager Relationship Specialty Start Date End Date Alena Verma MD [address] [place] [address] PCP - General 07/17/18
--- OUTSIDE RECORDS SUMMARY | 2024-10-11 00:26 | XMS_ITS | Clinical Summary ---
Author Organization [facility] [address] Address [address] [place] [address] Care Team Providers Care Curtain Framer Name Role Phone Alena Verma MD Primary Care Provider Allergies Active Allergy Reactions Criticality Noted Date Comments Shellfish Containing Products Medications azelaic acid (Azelex) 20 % cream To face qhs 7 Active butalbitaL-acet bxinrf-afe-jyt [id number] mg capsule TAKE 1 CAPSULE BY MOUTH [...] on file Legal Sex Female 3:56 AM CATCHER PLUG Gender Identity Not on file Sexual Orientation [...] patient's age to complete this topic Insurance [facility] Care Teams Curtain Framer Relationship Specialty Start Date End Date Alena Verma MD [address] [facility] [address] [place] [address] PCP - General Family Medicine 07/29/21
--- OUTSIDE RECORDS SUMMARY | 2024-10-11 00:26 | XMS_ITS | Patient Health Record ---
Author Organization [facility] Address [address] [place] [address] Care Team Providers Care Pesticide Chemist Name Role Phone Dr. Alena Kessler Primary Care Provider Un available Dr. Bradford Schaffer Unavailable [phone] Sherry Diego Unavailable [phone] Allergies No Known Allergies Reason For Referral Reason Botox PA 200 Units f or G43.709 Diagnosis 1 Chronic migraine wit hout aura, not intractable, without status migrainosus (G43.709) [facility] Referring Provider First Name Bradford Referring Provider Last Name Karime Referring Provider Speciality Neurology Referred Organization [facility] Referred Provider Tim Schaffer Referred Address [address] [place], [place],[address], Referred Provider Specialty Neurology Procedure 1 BOTULINUM TOXIN TYPE A PER UNIT 100 UN (J0585) Procedure 2 CHEMODENERV [facility] ([address]) Referral Priority Routine Medications Medication SIG (Take, [...] Chronic migraine without aura, non-refractor y (disorder) (812334736901 100) Migraine without aura, not intractable, without status migrainosus (G43.009) Active confirmed Problem Migraine with aura (6152293) Migraine with aura, not intractable, without status migrainosus (G43.109) Active confirmed Problem Chronic migraine without aura, non-intractab le (588740428718 100) Chronic migraine without aura, not intractable, without status migrainosus (G43.709) Active confirmed Problem Muscle pain (46180397) Myalgia, unspecified site (M79.10) Active confirmed Vital Signs Respiratory Rate 16 /min 03/01/2024 Oximetry 99 % 05/24/2024 Blood pressure diastolic 76 mm Hg 05/24/2024 Height 63 in 05/24/2024 Blood pressure systolic 129 mm Hg 05/24/2024 Weight 159.0 lbs 03/01/2024 BMI 28.16 kg/m2 03/01/2024 Encounters Encounter Location Date Provider Diagnosis [facility] [address] [address] 03/01/2024 Bradford Schaffer Chronic migraine without aura, not intractable, without status migrainosus G43.709 and Myalgia, unspecified site M79.10 [place] [address] [facility] [address] [address] 04/12/2024 Bradford Schaffer Chronic migraine without aura, not intractable, without status migrainosus G43.709 [place] [address] [facility] [address] [address] 05/24/2024 Bradford Schaffer Chronic migraine without aura, not intractable, without status migrainosus G43.709 and Myalgia, unspecified site M79.10 [place] [address] [facility] [address] [address] 07/05/2024 Sherry Diego Chronic migraine without aura, not intractable, without status migrainosus G43.709 [place] [address] [facility] [address] [address] 09/27/2024 Sherry Diego Chronic migraine without aura, not intractable, without status migrainosus G43.[address] [address] 10/02/2024 Bradford Karime Assessments Encounter Date Diagnosis [...] Provider Name:Sherry galvin, 12/20/2024 11:00:00 AM, [address] [facility], [address], [address], Insurance Providers Payer Name Payer Address Payer Phone Subscriber Number Group Number Insured Name Patient Relationship to Insured Coverage Start Date Coverage End Date [employer] Choice POS II [address] [place] [address] [id number] Mary Esposito Self - patient is the insured 3 Medical (General) History Medical History History ICD Code Grave's disease Thyroid ophthalmopathy Migraine
--- OUTSIDE RECORDS SUMMARY | 2024-10-11 00:27 | XMS_ITS ---
Author Organization [facility] Address [address] [place] [address] Care Team Providers Care Die Storage Worker Name Role Phone Dr. Alena Kessler Primary Care Provider Un available Dr. Bradford Schaffer Unavailable [phone] Sherry Diego Unavailable [phone] REASON FOR VISIT Botox Only Medications Medication SIG (Take, Route, Frequency, Duration) Notes Start Date End Date Status methIMAzole 5 MG 1 tablet Orally Once a day Active Rizatriptan Benzoate 10 MG 1 tablet Orally twice daily As needed Active Encounters Encounter Location Date Provider Diagnosis [facility] [address] [place] [address] 07/05/2024 Sherry Diego Chronic migraine without aura, not intractable, without status migrainosus G43.709 Assessments Encounter Date Diagnosis (ICD Code) Assessment Notes Treatment Notes Treatment Clinical Notes Section Notes 07/05/2024 Chronic migraine without aura, not intractable, without status migrainosus (ICD-10 - G43.709) Plan Of Treatment Next Appt Details Follow Up: 3 Months, Reason: Toxin injection Provider Name:Sherry galvin, 12/20/2024 11:00:00 AM, [address], [address], [place], [address], Procedure Notes * Category Sub-Category Detail Notes Toxin Administration onabotulinumtoxinA (BOTOX) Administration Indication: Chronic Migraine Locations and Dosages: Proce talha 5 Units, Clip Bolter And Wrapper (Left) 5 Units, Clip Bolter And Wrapper (Right) 5 Units, Frontalis (Left) 12.5 Units, Frontalis (Right) 12.5 Units, Temporalis (Left) 30 Units, Temporalis (Right) 30 Units, Occipitalis (Left) 25 Units, Occipitalis (Right) 25 Units, Cervical Paraspinal (Left) 10 Units, Cervical Paraspinal (Right) 10 Units, Trapezius (Left) 15 Units, Trapezius (Right) 15 Units Frequency: 12 weeks Lot Number / Expiration: See Notes Botox Lot# [id number], Exp 11/2026 Medication Source:: Buy and Bill Units Administered:: 200 Units Units Wasted:: 0 Units Adverse Reaction(s): None Progress Notes * STEPHYAyoB: 6 (38 yo F)Acc No.[id number]:07/05/2024 Progress Notes Patient:?Mary ESPOSITO Provider:?Sherry Diego APRN :1985???Age:38 Y???Sex:Female D ate:07/05/2024 Address:[address] [place], [place] [address] Pcp:Dr. Alena Kessler Subjective: * Chief Complaints: * ???Botox Only * HPI: ???*Headache:? Last injection on 04/12/24: Procerus 5 Units, Clip Bolter And Wrapper (Left) 5 Units, Clip Bolter And Wrapper (Right) 5 Units, Frontalis (Left) 12.5 Units, [...] ?Indication?Chronic Migraine ?Locations and Dosages?Procerus 5 Units, Clip Bolter And Wrapper (Left) 5 Units, Clip Bolter And Wrapper (Right) 5 Units, Frontalis (Left) 12.5 Units, Frontalis (Right) 12.5 Units, Temporalis (Left) 30 Units, Temporalis (Right) 30 Units, Occipitalis (Left) 25 Units, Occipitalis (Right) 25 Units, Cervical Paraspinal (Left) 10 Units, Cervical Paraspinal (Right) 10 Units, Trapezius (Left) 15 Units, Trapezius (Right) 15 Units ?Frequency?12 weeks ?Lot Number / Expiration?See Notes Botox Lot# [id number], Exp 11/2026 ?Medication Source:?Buy and Bill ?Units Administered:?200 Units ?Units Wasted:?0 Units ?Adverse Reaction(s)?None? * Procedure Codes:?72823 CHEMO DENERV MUSC [id number] BOTULINUM TOXIN TYPE A PER UNIT, Units: 200.00 , Modifiers: JZ * Follow Up:?3 Months (Reason: Toxin injection) * Billing Information: * Visit Code:? * Procedure Codes:? 37266 CHEMODENERV MUSC MIGRAINE. J0585 BOTULINUM TOXIN TYPE A PER UNIT. Units: 200.00. Modifiers: JZ * Sign off status: Completed true * Provider:?Sherry Diego APRN Date:? Generated for Munir noland/Yari/eTransmitting on:?10/11/2024 12:26 AM MOBILE APPLICATION ARCHITECT History and Physical Notes * HPI (History of Present Illness) Category Sub-Category Detail Notes Category Not es *Headache Last injection on 04/12/24: Procerus 5 Units, Clip Bolter And Wrapper (Left) 5 Units, Clip Bolter And Wrapper (Right) 5 Units, Frontalis (Left) 12.5 Units, [...]
--- OUTSIDE RECORDS SUMMARY | 2024-10-11 00:27 | XMS_ITS ---
Author Organization [facility] Address [address] [place] [address] Care Team Providers Care Millwright Instructor Name Role Phone Dr. Alena Kessler Primary Care Provider Un available Dr. Bradford Schaffer Unavailable [phone] REASON FOR VISIT [facility] Approved 10/02/2024-10/02/2025 Encounters Encounter Location Date Provider Diagnosis [facility] [address] [place] [address] 10/02/2024 Bradford Schaffer Plan Of Treatment Next Appt Details Provider Name:Sherry galvin, 12/20/2024 11:00:00 AM, [address] [facility], [address], [place], [address], Progress Notes * Ayo ESPOSITOB: 6 (39 yo F)Acc No.[id number]:10/02/2024 Patient:?Mary ESPOSITO :1985???Age:39 Y???Sex:Female Address:[address] [place] [address] [address], [place], [address] * true * Date:? Generated for Printi ng/Faxing/eTransmitting on:?10/11/2024 12:26 AM MINIATURE MODEL MAKER
[2024-10-11] MEDS: KETOROLAC 15 MG/ML VIAL (*BKC) IV PUSH (00:33)
[2024-10-11 01:35] VITALS: BP 131/77; PULSE 88; RESP 18; O2SAT 99
== END 2024-10-11 01:36 | disposition home or self-care (01) ==
PROVIDERS: Emergency Provider Physician Assistant; PCP Family Medicine
DX: R10.31 Right lower quadrant pain (principal); N83.8 Other noninflammatory disorders of ovary, fallopian tube and broad ligament; E05.00 Thyrotoxicosis with diffuse goiter without thyrotoxic crisis or storm; G93.5 Compression of brain; G44.229 Chronic tension-type headache, not intractable; D25.9 Leiomyoma of uterus, unspecified; Z79.899 Other long term (current) drug therapy
CPT/HCPCS: 36415; 74176; 76856; 80053; 81003; 81025; 83690; 85025; 96374; 99284; J1885

== ENCOUNTER 2024-10-16 13:39 | Outpatient (CLI) | payer OTHER, SELFPAY ==
--- OUTSIDE RECORDS SUMMARY | 2024-10-16 13:52 | XMS_ITS | Clinical Summary ---
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
--- OUTSIDE RECORDS SUMMARY | 2024-10-16 13:52 | XMS_ITS | Patient Health Summary ---
Author Organization [facility] Address [address] [facility] [place] [address] Care Team Providers Care Tank Wagon Operator Name Role Phone Alena Verma MD Primary Care Provider + Note from [facility],non-owned Affiliates and Associated Physician Practices is amultiple site organization consisting of ambulatory clinics and hospital sitesin [place], [place], [place] and [place]. This disclosure is being madepursuant to the Care Everywhere program and may not contain all information available regarding this patient. Last updated 18.[facility] Active Problems Problem Noted Date Diagnosed Date [...] PM CDT Narrative 03/27/2013 5:26 PM CDT ?[facility] Maternal Medicine ? [facility] Care Center ?PHONE: ??FAX: ? Pat. Name: ?MARY REAVES Pat. No: ?[id number] Study Date: ?? 03/27/2013 ??4:28pm , Age: ? 1985, 27 Pregnancies: ?? 1 LMP: ?11/08/2012 GA by LMP: ?19w6d GA by US: ? 20w0d GA Selected: ??19w6d (LMP) DEV: ?08/15/2013 Referring MD: BRITNEY MURCIA MD Devops Developer: ??Denisse Brown RDMS ICD9: ? 655.03 CPT4: ? 77157 Hist/Ind: ? Bilateral Choroid Plexus Cysts MEASUREMENTS & AGE ? GROWTH EVALUATION Measurement ??GA ? Range ? Srce %for GA Ratios ----- ---- ------- BPD ??4.8 cm 20w4d (38k1p-54p6v) Hadl BPD 66% FL/BPD 0.64 HC ??17.2 cm 19w5d (00g2q-65l8u) Hadl HC ??46% FL/AC ??0.20 AC ??15.2 cm 20w3d (69i2p-38t8u) Hadl AC ??61% HC/AC ??1.13 (1.06 - 1.25) FL ?? 3.1 cm 19w4d (23t3g-73e3q) Hadl FL ??41% CI ? 0.79 (0.70 - 0.86) HL ?? 2.9 cm 19w3d (41n1j-11g2j) Rylan HL ??42% GA for sonogram 20w0d (86t2l-62h9c) ?? Weight Estimate: based on (HL,BPD,HC,AC,FL) Avg [...] <Electronic Signature> ??03/27/2013 05:21pm Britney Murcia MD [facility] ORDERABLES Care Teams Tank Wagon Operator Relationship Specialty Start Date End Date Alena Verma MD [address] [place] [address] PCP - General 07/17/18
--- OUTSIDE RECORDS SUMMARY | 2024-10-16 13:52 | XMS_ITS | Referral Summary ---
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
--- OUTSIDE RECORDS SUMMARY | 2024-10-16 13:52 | XMS_ITS | Referral Summary ---
Author Organization [facility] Address [address] [facility] [place] [address] Care Team Providers Care Blast Furnace Blower Name Role Phone Alena Verma MD Primary Care Provider + Source Comments [facility],non-owned Affiliates and Associated Physician Practices is amultiple site organization consisting of ambulatory clinics and hospital sitesin [place], [place], [place] and [place]. This disclosure is being madepursuant to the Care Everywhere program and may not contain all information available regarding this patient. Last updated 18.[facility] Active Problems Problem Noted Date Diagnosed Date [...] of Treatment Not on file Care Teams Blast Furnace Blower Relationship Specialty Start Date End Date Alena Verma MD [address] [place] [address] PCP - General 07/17/18
--- OUTSIDE RECORDS SUMMARY | 2024-10-16 13:52 | XMS_ITS | Clinical Summary ---
Author Organization [facility] Address [address] [facility] [place] [address] Care Team Providers Care Manager Grant Name Role Phone Alena Verma MD Primary Care Provider + Source Comments [facility],non-owned Affiliates and Associated Physician Practices is amultiple site organization consisting of ambulatory clinics and hospital sitesin [place], [place], [place] and [place]. This disclosure is being madepursuant to the Care Everywhere program and may not contain all information available regarding this patient. Last updated 18.[facility] Active Problems Problem Noted Date Diagnosed [...] age to complete this topic Care Teams Manager Grant Relationship Specialty Start Date End Date Alena Verma MD [address] [place] [address] PCP - General 07/17/18
[2024-10-16 18:49] LABS: Total Triiodothyronine (T3) 1.32 NG/ML (0.97-1.69)
== END 2024-10-16 13:40 | disposition home or self-care (01) ==
LOC: ANHGOSHLAB 13:42
PROVIDERS: PCP Family Medicine; Visit Provider Internal Medicine
DX: N83.209 Unspecified ovarian cyst, unspecified side (principal); E05.90 Thyrotoxicosis, unspecified without thyrotoxic crisis or storm
CPT/HCPCS: 36415; 84439; 84480; 86850; 86900; 86901

== ENCOUNTER 2024-10-19 00:46 | Day surgery (SDC) | payer OTHER, SELFPAY ==
[2024-10-16 10:53] VITALS: BMI 26.1
--- NOTE | 2024-10-16 10:59 | PC.NURSE ---
Report to the Outpatient Waiting Room, entrance under the green pavilion located off [facility], at time _1000_ on date _[id number]_. Planned Procedure Time: _1200_.? Time changes happen often and if your time is changed the preop area will call you the afternoon before. - You and your visitor will be asked to self-screen and do not enter if you have any COVID symptoms. Please call surgeon if you need to reschedule. - A mask is optional within the hospital at this time. Patients may have clear liquids (water, carbonated beverages, clear teas, apple juice) until 3 hours prior to surgery with a maximum of 20 ounces. - No food from midnight until time of surgery and no smoking. This includes no chewing gum, candy or mints. Take only the following medications with a SIP of water on the morning of surgery: ___Methimazole, Flonase and if needed pain medication.____ DO NOT STOP ANY OF YOUR OTHER PRESCRIPTION MEDICATIONS PRIOR TO SURGERY EXCEPT THE FOLLOWING Medications to discontinue per physician ____None Check with Dr Diana's office if OK to continue Ketorolac. Please no make-up, nail argentine, hairspray, perfume, deodorant, or body powder the day of surgery.? No jewelry (including any body piercings) or valuables the day of surgery, leave them at home.? Please take a shower or bath the night before, or the morning of, surgery with an antibacterial soap.? Wear comfortable, loose fitting clothing.? - Jewelry must be removed prior to entering the operating room.? Rings and piercings that are not removed may be cut off. - The hospital will not accept responsibility for valuables.? - Please leave all valuables, including medications, at home the day of surgery. If you are going home after surgery, a licensed regional company hazmat tanker driver must drive you home.? - NO public transportation without another adult if you receive anesthesia. - We recommend that an adult stay with you for 24 hours following discharge. - We also recommend that you do not drive, make important decision, drink alcoholic beverages, or take any drugs that were not prescribed by your health care provider for at least 24 hours after your discharge time. Hold all vitamins and supplements for 3 days per anesthesiologist. Follow any additional instructions given to you from your surgeon. Telephone instructions given to __Mary__and asked if any additional questions and then verbalized understanding. Patient advised to call surgeon office or pre surgery nurse liaison [phone] if any additional questions
--- NOTE | 2024-10-16 12:40 | PM.IMHP ---
H&P: HPI History of Present Illness Date/Time: 10/16/24 12:40 Chief Complaint: pelvic pain and complex right ovarian cyst Narrative: 39-year-old female admitted for laparoscopy and left cystectomy possible left salpingo-oophorectomy secondary to complex right ovarian cyst. She also has uterine fibroids. She was seen through the ER and the fibroid uterus was seen with his complex cyst it does not appear to be a torsion. She would like to maintain her uterus so the fibroids will not be Del with the laparoscopy and right cystectomy possible right oophorectomy will be undertaken risks and benefits of the procedure reviewed including but not exclusive of , aspiration pneumonia, bleeding, transfusion, perforation injury to bowel, bladder, ureters, or other internal organs with need for open laparotomy reviewed. She received the ACOG handout entitled laparoscopy. She had all questions answered. She asked to proceed. Review of Systems Review of Systems: Pertinent positives per HPI. Patient denies any fever, chills, rash, headache, visual changes, dizziness, cough, runny nose, sore throat, shortness of breath, chest pain, palpitations, nausea, vomiting, diarrhea. [facility] Past Medical History Medical History Menometrorrhagia Chronic tension-type headache, not intractable Body mass index (BMI) 23 or greater (03/31/17) Thyroid eye disease Anxiety Palpitations Chiari I malformation Elevated prolactin level Migraines Hyperthyroidism Graves disease Micromastia Goiter diffuse Pharyngitis Nasal polyp Tension headache Surgical History Surgical History H/O breast augmentation Family History Family History Father Family history of alcoholism Family history of liver disease, Onset Age: 46 Patient's father is Mother Carcinoma of colon, Onset Age: 33 Sibling Family history of malignant neoplasm of testis, Onset Age: 28 Social History Social History Social History: Smoking status: Never smoker Second hand tobacco smoke exposure: No Alcohol intake: current Drinks per week: 2 Alcohol use details: Socially Substance use: never Substance use type: does not use Do You Feel Safe in your Home?: Yes Lack of Transportation: No Lack of Food: Never True Current Housing: I Have Housing Concerned About Future Housing: No Difficulty Paying Gas/Electric Bills: No Difficulty Paying for Meds: No Currently Unemployed: No Education: Master's Degree or Higher Difficulty w/ Childcare or Family Care: No Living arrangements: with family Occupation/Education: occupation 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 Gender identity (if verbalized by the patient): Female Sexual Orientation (if Verbalized by the Patient): Straight or Heterosexual Spiritual care concerns: No Meds Home Medications and Allergies Home Medications ?Medication ?Instructions ?Recorded ?Confirmed ?Type fluticasone propionate 50 1 spray intranasal DAILY #16 grams 10/18/23 10/16/24 Rx mcg/actuation nasal spray,suspension methimazole 5 mg tablet 2.5 mg PO DAILY 10/26/23 10/16/24 History rizatriptan 10 mg tablet (Maxalt) 10 mg PO ONCE PRN migraine 10/26/23 10/16/24 Rx headache #10 tabs clobetasol 0.05 % topical cream See Rx Instructions .Route 02/24/24 10/16/24 Rx .COMPLEX #15 grams omeprazole 20 mg capsule,delayed 20 mg PO DAILY #90 caps 09/14/24 10/16/24 Rx release ketorolac 10 mg tablet 10 mg PO Q8H PRN pain #15 tabs 10/11/24 10/16/24 Rx Allergies Allergy/AdvReac Type Severity Reaction Status Date / Time iodine Allergy Intermediate SWELLING Verified 10/16/24 10:52 shellfish derived Allergy Intermediate Swelling Verified 10/16/24 10:52 Exam Const: General: cooperative, healthy appearing and comfortable Nutritional Appearance: average body habitus Orientation/consciousness: oriented to person, oriented to place and oriented to time Resp: Effort & Inspection: normal respiratory effort Cardio: Rate: regular rate Rhythm: regular rhythm Heart sounds: S1 normal heart sound present and S2 normal heart sound present GI: Inspection: normal to inspection : External Female Exam: normal external appearance Speculum Exam - Vagina: normal appearance of the vagina Speculum Exam - Cervix: normal appearance of the cervix Bimanual exam- vagina & uterus: enlarged Bimanual Exam- Adnexa, other: normal adnexae ( Right adnexa very tender) Assessment and Plan Assessment and plan (1) Right ovarian cyst: Code(s): N83.201 - Unspecified ovarian cyst, right side Status: Acute Plan proceed with laparoscopic right cystectomy possible right salpingo-oophorectomy. The fibroids will be visualized at the same time.
[2024-10-19] VITALS (12 sets, daily range): BP systolic 102–111; BP diastolic 59–73; PULSE 60–83; RESP 10–18; TEMP 36.2–36.9; O2SAT 96–100; BMI 26.6
--- OUTSIDE RECORDS SUMMARY | 2024-10-19 00:49 | XMS_ITS | Clinical Summary ---
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 Care Teams Alarm Mechanic Relationship Specialty Start Date End Date Alena Verma MD [address] [facility] [address] [place] [address] PCP - General Family Medicine 07/29/21
--- OUTSIDE RECORDS SUMMARY | 2024-10-19 00:49 | XMS_ITS | Clinical Summary ---
Author Organization [facility] Address [address] [facility] [place] [address] Care Team Providers Care Precision Machine Operator Name Role Phone Alena Verma MD Primary Care Provider + Source Comments [facility],non-owned Affiliates and Associated Physician Practices is amultiple site organization consisting of ambulatory clinics and hospital sitesin [place], [place], [place] and [place]. This disclosure is being madepursuant to the Care Everywhere program and may not contain all information available regarding this patient. Last updated 18.[facility] Active Problems Problem Noted Date Diagnosed [...] age to complete this topic Care Teams Precision Machine Operator Relationship Specialty Start Date End Date Alena Verma MD [address] [place] [address] PCP - General 07/17/18
--- OUTSIDE RECORDS SUMMARY | 2024-10-19 00:49 | XMS_ITS | Referral Summary ---
Author Organization [facility] Address [address] [facility] [place] [address] Care Team Providers Care Personnel Generalist Manager Name Role Phone Alena Verma MD Primary Care Provider + Source Comments [facility],non-owned Affiliates and Associated Physician Practices is amultiple site organization consisting of ambulatory clinics and hospital sitesin [place], [place], [place] and [place]. This disclosure is being madepursuant to the Care Everywhere program and may not contain all information available regarding this patient. Last updated 18.[facility] Active Problems Problem Noted Date Diagnosed Date [...] of Treatment Not on file Care Teams Personnel Generalist Manager Relationship Specialty Start Date End Date Alena Verma MD [address] [place] [address] PCP - General 07/17/18
--- OUTSIDE RECORDS SUMMARY | 2024-10-19 00:49 | XMS_ITS | Referral Summary ---
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
--- OUTSIDE RECORDS SUMMARY | 2024-10-19 00:49 | XMS_ITS | Patient Health Summary ---
Author Organization [facility] Address [address] [facility] [place] [address] Care Team Providers Care Production Stage Manager Name Role Phone Alena Verma MD Primary Care Provider + Note from [facility],non-owned Affiliates and Associated Physician Practices is amultiple site organization consisting of ambulatory clinics and hospital sitesin [place], [place], [place] and [place]. This disclosure is being madepursuant to the Care Everywhere program and may not contain all information available regarding this patient. Last updated 18.[facility] Active Problems Problem Noted Date Diagnosed Date [...] PM CDT Narrative 03/27/2013 5:26 PM CDT [facility] PHONE: FAX: Pat. Name: MARY REAVES Pat. No: [id number] Study Date: 03/27/2013 4:28pm , Age: 01 1985, 27 Pregnancies: 1 LMP: 11/08/2012 GA by LMP: 19w6d GA by US: 20w0d GA Selected: 19w6d (LMP) DEV: 08/15/2013 Referring MD: BRITNEY MURCIA MD Java [place] Developer: Denisse Brown RDMS ICD9: 655.03 CPT4: 21190 Hist/Ind: Bilateral Choroid Plexus Cysts MEASUREMENTS & AGE GROWTH EVALUATION Measurement GA Range Srce %for GA Ratios ----- ---- ------- BPD 4.8 cm 20w4d (90a0r-88s9u) Hadl BPD 66% FL/BPD 0.64 HC 17.2 cm 19w5d (16e7b-54y9c) Hadl HC 46% FL/AC 0.20 AC 15.2 cm 20w3d (19e3j-46k3z) Hadl AC 61% HC/AC 1.13 (1.06 - 1.25) FL 3.1 cm 19w4d (70r1g-17z7e) Hadl FL 41% CI 0.79 (0.70 - 0.86) HL 2.9 cm 19w3d (07h8d-29m5c) Rylan HL 42% GA for sonogram 20w0d ([id number]) Weight Estimate: based on (HL,BPD,HC,AC,FL) Avg Weight: 326 gm (279-374) [place]lock : 0lbs, 11oz Heart Rate: 148 bpm CLINICAL SUMMARY Study Number: 1 A sun fetus is identified in cephalic presentation. The measurements today are consistent with appropriate size for the DEV provided. The DEV selected is based on her LMP and a prior ultrasound examination. The amniotic fluid volume is within normal limits. The placenta is anterior with no evidence for placenta previa, Grade 1. No major malformations are seen. No evidence of choroid plexus cyst on the left. The right choroid demonstrated a resolving/collapsed cyst. The patient was advised that ultrasound does not allow detection of all structural or chromosomal abnormalities. IMPRESSION: Sun, live IUP at 19w6d Normal amniotic fluid volume. Appropriate growth with respect to previously assigned dating. Placental location: Anterior, with no evidence for placenta previa Collapsed right choroid plexus cyst, left side normal in appearance No major malformations are seen today within the limitations of ultrasound. RECOMMEND: Follow up ultrasound as clinically indicated. Thank you for allowing us the opportunity to care for your patient. Iglesia Xavier MD <Electronic Signature> 03/27/2013 05:21pm Britney Murcia MD [facility] ORDERABLES Care Teams Production Stage Manager Relationship Specialty Start Date End Date Alena Verma MD [address] [place] [address] PCP - General 07/17/18
--- NOTE | 2024-10-19 07:21 | WPDHPUPDATE1 ---
History and Physical Update Update Date/Time: 10/19/24 07:21 History and Physical has been reviewed, including an updated exam of the patient. There are NO changes in the patient's condition. Risks, benefits, and alternatives have been discussed and questions answered. Patient agrees to proceed with procedure.
--- NOTE | 2024-10-19 10:23 | P.PNAN_ITS ---
Anes - Initial Pre Proc Eval Procedure: Operation Date: 10/19/24 12:00 Proposed Procedures p Diagnostic Laparoscopy with Right Ovarian Cystectomy, Possible Right Salpingo-oophorectomy - Etienne Husain MD Date/Time: 10/19/24 10:23 Surgeon: Etienne Husain MD Pre Op Diagnosis: Pelvic Pain, Rt Complex Ovarian Cyst Patient Data Age: 39 Gender: F Height: 1.6 m Weight: 66.8 kg Allergies Allergy/AdvReac Type Severity Reaction Status Date / Time iodine Allergy Intermediate SWELLING Verified 10/16/24 10:52 shellfish derived Allergy Intermediate Swelling Verified 10/16/24 10:52 Home Medications ?Medication ?Instructions ?Recorded ?Confirmed ?Type fluticasone propionate 50 1 spray intranasal DAILY #16 grams 10/18/23 10/16/24 Rx mcg/actuation nasal spray,suspension methimazole 5 mg tablet 2.5 mg PO DAILY 10/26/23 10/16/24 History rizatriptan 10 mg tablet (Maxalt) 10 mg PO ONCE PRN migraine 10/26/23 10/16/24 Rx headache #10 tabs clobetasol 0.05 % topical cream See Rx Instructions .Route 02/24/24 10/16/24 Rx .COMPLEX #15 grams omeprazole 20 mg capsule,delayed 20 mg PO DAILY #90 caps 09/14/24 10/16/24 Rx release ketorolac 10 mg tablet 10 mg PO Q8H PRN pain #15 tabs 10/11/24 10/16/24 Rx hydrocodone 5 mg-acetaminophen 325 1 tablet PO Q4H PRN pain #20 tabs 10/19/24 Rx mg tablet Patient hx anesthesia problems: none Family hx anesthesia problems: none Results Review: All pre-operative results and documents have been reviewed as part of the pre- operative evaluation. [facility] Past Medical History Medical History Menometrorrhagia Chronic tension-type headache, not intractable Body mass index (BMI) 23 or greater (03/31/17) Thyroid eye disease Anxiety Palpitations Chiari I malformation Elevated prolactin level Migraines Hyperthyroidism Graves disease Micromastia Goiter diffuse Pharyngitis Nasal polyp Tension headache Surgical History Surgical History H/O breast augmentation Family History Family History Father Family history of alcoholism Family history of liver disease, Onset Age: 46 Patient's father is Mother Carcinoma of colon, Onset Age: 33 Sibling Family history of malignant neoplasm of testis, Onset Age: 28 Social History Social History Social History: Smoking status: Never smoker Second hand tobacco smoke exposure: No Alcohol intake: current Alcohol use details: Socially Substance use: never Substance use type: does not use Do You Feel Safe in your Home?: Yes Lack of Transportation: No Lack of Food: Never True Current Housing: I Have Housing Concerned About Future Housing: No Difficulty Paying Gas/Electric Bills: No Difficulty Paying for Meds: No Currently Unemployed: No Education: Master's Degree or Higher Difficulty w/ Childcare or Family Care: No Living arrangements: with family Occupation/Education: occupation 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 Gender identity (if verbalized by the patient): Female Sexual Orientation (if Verbalized by the Patient): Straight or Heterosexual Spiritual care concerns: No Anes - Eval Final PreProcedure Day of Procedure 10/19/24 10:23 Patient weight: overweight Heart: regular rate and rhythm Lungs: clear to auscultation Airway: Mallampati scale class II Neurological: alert and oriented Last oral intake: >/= 8 hours ASA classification: III Emergent: no Anesthetic plan: proceed Anesthesia type and monitoring: general ETT and standard monitoring Results Review: All pre-operative results and documents have been reviewed as part of the pre- operative evaluation. Informed Consent: The patient's anesthetic plan and its attendant risks and benefits were discussed with the patient/family/POA. Questions were solicited and answers provided to the satisfaction of the patient/family/POA.
[2024-10-19] MEDS: LACTATED RINGERS 1,000 ML 30 ML IV CONT ×2 (10:40→12:35)
[2024-10-19] MEDS: KETOROLAC 15 MG/ML VIAL (*BKC) IV PUSH (10:46)
[2024-10-19] MEDS: ACETAMINOPHEN 500 MG TABLET 1000 MG PO (10:46)
[2024-10-19 11:05] LABS: BEDSIDEPREGUCG Negative (Negative)
--- NOTE | 2024-10-19 11:41 | W.PM.PROC2 ---
Procedure Note - Detailed Date of Procedure 10/19/24 Pre-op Diagnosis Pelvic Pain, Rt Complex Ovarian Cyst Post-op Diagnosis Other (Pelvic pain right simple cyst/endometriosis/fibroid uterus) Procedure Performed Laparoscopy with destruction of simple right ovarian cyst and destruction of endometriosis Surgeon Etienne Husain MD Anesthesia General Indications Since 39-year-old female with suspected complex right ovarian cyst and pelvic pain with known fibroids prolapse Findings Markedly enlarged uterus with fibroids about 12-14 weeks in size. Fairly normal-appearing ovaries with a simple right ovarian cyst. Endometriosis with serosanguineous fluid in the cul-de-sac. Description of Procedure Patient was prepped draped in the normal sterile fashion placed in dorsal lithotomy position. Under excellent general trach anesthesia weighted speculum was placed in the posterior fornix of vagina. Anterior lip of the cervix grasped with a single-tooth tenaculum. Willett's cannula inserted attached single-tooth to be used later for uterine manipulation. After emptying bladder of clear urine. The weighted speculum was removed the gloves were changed. An infraumbilical incision made the Veress needle passed in the abdomen. Abdomen filled with CO2 gas [id number]. The 5mm trocar advanced under direct visualization assuring. Patient placed in Trendelenburg. Suprapubic incision made. The 5mm trocar advanced under direct visualization assuring injury. Serosanguineous fluid was drained. The uterus was heavy and filling the entire cul-de-sac. The right lower quadrant incision made the 5mm trocar advanced to help raise the uterus to see the cul-de-sac which contained approximately 10-15 cc of serosanguineous fluid. Areas of endometriosis were seen and these were cauterized at 35 w per 2nd. The right ovary had a simple cyst on it left ovary. Normal the simple cyst on the right was drain with clear fluid with monopolar cautery. No other abnormalities were seen irrigation undertaken until clear the gas removed from the abdomen. Incisions closed with the 4-0 Monocryl and glue the patient was awakened went recovery in satisfactory condition. All sponge, needle, instrument counts were correct. There were no immediate complication Estimated Blood Loss 5 Drains No Packing No Pathology None sent Complications No immediate complications Condition Stable Disposition PACU
[2024-10-19] MEDS: fentaNYL CITRATE INJ (*CRX) 100 MCG/2 ML VIAL 25 MCG IV PUSH ×6 (11:58→12:52)
[2024-10-19] MEDS: oxyCODONE HCL (*CRX) 5 MG TAB IR PO (13:57)
== END 2024-10-19 14:37 | disposition home or self-care (01) ==
PROVIDERS: PCP Family Medicine; Visit Provider Obstetrics & Gynecology
PROC: (CPT 49320; principal; 2024-10-19 12:00)
DX: N83.291 Other ovarian cyst, right side (principal); N80.329 Endometriosis of the posterior cul-de-sac, unspecified depth; G44.229 Chronic tension-type headache, not intractable; F41.9 Anxiety disorder, unspecified; G93.5 Compression of brain; E05.00 Thyrotoxicosis with diffuse goiter without thyrotoxic crisis or storm; Z79.891 Long term (current) use of opiate analgesic; Z98.890 Other specified postprocedural states; Z80.0 Family history of malignant neoplasm of digestive organs; Z80.43 Family history of malignant neoplasm of testis
CPT/HCPCS: 58662; A9270; J1100; J1596; J1885; J2250; J2405; J2704; J2710; J3010; J7120

== ENCOUNTER 2024-11-10 12:31 | Emergency (ER) | payer OTHER, SELFPAY ==
[2024-11-10 12:44] VITALS: BP 129/83; PULSE 92; RESP 16; TEMP 37.1; O2SAT 100
--- NOTE | 2024-11-10 12:59 | ED.ABDPAIN ---
HPI - Abdominal Pain General Chief Complaint: Back Pain/Injury Stated Complaint: nausea/back pain Time Seen by Provider: 11/10/24 12:50 Source: patient Mode of arrival: ambulatory Limitations: no limitations History of Present Illness HPI narrative: Mary is a 39-year-old female patient presenting to the clinic today with complaints nausea, abdominal bloating, dull aching low back pain, and fatigue. No vomiting. She reports the symptoms have been going for approximately 1 week. Seen her primary care doctor and they obtained urine sample on her and placed her on some Macrobid. She has been taking the Macrobid but she is not having any improvement of her symptoms. She states she is sleeping much more than what is normal for her. Last bowel movement was this morning and normal for the patient. She denies any fevers, chills, body aches, URI symptoms, sore throat, or urinary symptoms. States that thought she may have had a urinary tract infection because she had malodorous urine. Had surgery to remove a right ovarian cyst on October 19. Denies any vaginal discharge or concern for STIs. Related Data Home Medications ?Medication ?Instructions ?Recorded ?Confirmed ?Last Taken ?Type methimazole 5 mg tablet 2.5 mg PO DAILY 10/26/23 10/16/24 Unknown History nitrofurantoin 11/10/24 Unknown History monohydrate/macrocrystals 100 mg capsule Allergies Allergy/AdvReac Type Severity Reaction Status Date / Time iodine Allergy Intermediate SWELLING Verified 10/19/24 10:29 shellfish derived Allergy Intermediate Swelling Verified 10/19/24 10:29 Review of Systems Review of Systems: Pertinent positives per HPI. Patient denies any fever, chills, rash, headache, visual changes, dizziness, cough, runny nose, sore throat, shortness of breath, chest pain, palpitations, nausea, vomiting, diarrhea, constipation, or any urinary issues. [facility] Past Medical History Medical History Menometrorrhagia Chronic tension-type headache, not intractable Body mass index (BMI) 23 or greater (03/31/17) Thyroid eye disease Anxiety Palpitations Chiari I malformation Elevated prolactin level Migraines Hyperthyroidism Graves disease Micromastia Goiter diffuse Pharyngitis Nasal polyp Tension headache Surgical History Surgical History H/O breast augmentation Family History Family History Father Family history of alcoholism Family history of liver disease, Onset Age: 46 Patient's father is Mother Carcinoma of colon, Onset Age: 33 Sibling Family history of malignant neoplasm of testis, Onset Age: 28 Social History Social History Social History: Smoking status: Never smoker Second hand tobacco smoke exposure: No Alcohol intake: current Alcohol use details: Socially Substance use: never Substance use type: does not use Do You Feel Safe in your Home?: Yes Lack of Transportation: No Lack of Food: Never True Current Housing: I Have Housing Concerned About Future Housing: No Difficulty Paying Gas/Electric Bills: No Difficulty Paying for Meds: No Currently Unemployed: No Education: Master's Degree or Higher Difficulty w/ Childcare or Family Care: No Living arrangements: with family Occupation/Education: occupation 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 Head: Normocephalic, atraumatic. Cardio: Regular rate and rhythm, s1 and s2 normal, no murmur appreciated. Resp: Clear to auscultation bilaterally, no rhonchi, rales, wheezing or rubs. Abdomen: Soft, pliable, bowel sounds present in all quadrants, mid abdomen-tender to palpation, no organomegly, no CVAT tenderness. Course Course Emergency Course: Portions of this record may have been created with voice recognition software. Level of Care: Express Care Visit Vital Signs Vital signs: Vital Signs Temperature 37.1 C 11/10/24 12:44 Pulse Rate 92 11/10/24 12:44 Respiratory Rate 16 11/10/24 12:44 Blood Pressure 129/83 11/10/24 12:44 Pulse Oximetry 100 11/10/24 12:44 Temperature 37.1 C 11/10/24 12:44 Pulse Rate 92 11/10/24 12:44 Respiratory Rate 16 11/10/24 12:44 Blood Pressure 129/83 11/10/24 12:44 Pulse Oximetry 100 11/10/24 12:44 Vital signs reviewed MDM - Abdominal Pain MDM Narrative Medical decision making narrative: At the time of visit patient is resting comfortably on the exam table. Patient appears to be nontoxic. Labs: Dialysis step is negative for any sign of infection. Does have 1+ blood in her urine. Bedside test was negative Diagnostics: KUB x-ray was performed and shows moderate constipation without sign of obstruction. Plan: I suspect patient has constipation and hematuria. Supportive measures were discussed with the patient and they voiced understanding discharge instructions and agrees to treatment plan. Return precautions reviewed Differential Diagnosis Differential diagnosis: Likely abdominal pain, acute appendicitis, constipation, diverticulitis, endometriosis, gastroenteritis, pancreatitis and small bowel obstruction Lab Data Labs: Lab Results 11/10/24 Range/Units 13:18 POC Urine Color Yellow POC Urine Clarity Clear POC Urine pH 7.0 POC Ur Specif [place] 1.025 POC Urine Protein Negative (Negative) POC Ur Glucose (UA) Negative (Negative) POC Urine Ketones Negative (Negative) POC Urine Blood 1+ (Negative) POC Urine Nitrite Negative (Negative) POC Urine Bilirubin Negative (Negative) POC Urine Urobilinogen 0.2 POC U Leukocyte Esteras Negative (Negative) POC Urine HCG, Qual Negative (Negative) Imaging Data Radiologist's impression: ITS Impressions Abdomen X-Ray 11/10/24 13:28 IMPRESSION: 1. No dilated bowel to suggest obstruction. Discharge Plan Discharge Clinical Impression: Constipation Qualifiers: Constipation type: slow transit constipation Qualified Code(s): K59.01 - Slow transit constipation Hematuria Qualifiers: Hematuria type: unspecified type Qualified Code(s): R31.9 - Hematuria, unspecified Patient Disposition: Home, Self-Care Condition: Stable Instructions: Antibiotic Form, Constipation (ED), Hematuria (ED) Additional Instructions: Continue current medications as prescribed Urinalysis shows 1+ blood without sign of infection. X-ray shows moderate amount of stool in your colon without sign of obstruction Take MiraLax daily as discussed-1 scoop in 8 oz of water or juice and mix-does not distort the flavor May take Gas-X as needed for abdominal bloating Increase fluids and stay well hydrated Tylenol/motrin for pain/fever Go to the ED if you develop a worsening in your condition- high fever not controlled by Tylenol or Motrin, dehydration, weakness, lethargy, shortness of breath, abdominal pain, back pain, or chest pain. Follow up with your PCP in 3-5 days if symptoms persist. Patient Language: Cymro Prescriptions: No Action nitrofurantoin monohyd/m-cryst 100 mg capsule fluticasone propionate 50 mcg/actuation spray,suspension 1 spray intranasal DAILY Qty: 16 0RF Rx Instructions: administer into each nostril omeprazole 20 mg capsule,delayed release(DR/EC) 20 mg PO DAILY Qty: 90 0RF methimazole 5 mg tablet 2.5 mg PO DAILY rizatriptan [Maxalt] 10 mg tablet 10 mg PO ONCE PRN (Reason: migraine headache) Qty: 10 3RF Rx Instructions: as a single dose ketorolac 10 mg tablet 10 mg PO Q8H PRN (Reason: pain) Qty: 15 0RF Rx Instructions: maximum total duration of 5 days from all oral, intranasal, or parenteral formulations hydrocodone-acetaminophen 5-325 mg tablet 1 tablet PO Q4H PRN (Reason: pain) Qty: 20 0RF clobetasol 0.05 % cream See Rx Instructions .ROUTE .COMPLEX Qty: 15 0RF Dose Instruction: APPLY TOPICALLY TO THE AFFECTED AREA EVERY DAY AT BEDTIME Rx Instructions: APPLY TOPICALLY TO THE AFFECTED AREA EVERY DAY AT BEDTIME Follow-up/Referrals: David Anderson MD [Primary Care Provider] - Time of Disposition: 13:51 Quality NIHSS Nursing Documentation ED NIHSS nursing documentation: reviewed/agree
[2024-11-10 13:21] LABS: BEDSIDEPREGUCG Negative (Negative); EDUAAPPEAR Clear; EDUABILI Negative (Negative); EDUABLOOD 1+ (Negative); EDUACOLOR1 Yellow; EDUAGLUCOSE Negative (Negative); EDUAKETONE Negative (Negative); EDUALEUKO Negative (Negative); EDUANITRATE Negative (Negative); EDUAPROTEIN Negative (Negative); EDUASPGRAVITY 1.025; EDUAUROBILI 0.2
== END 2024-11-10 13:55 | disposition home or self-care (01) ==
PROVIDERS: Emergency Provider Nurse Practitioner Family; PCP Family Medicine
DX: K59.01 Slow transit constipation (principal); R31.9 Hematuria, unspecified; G93.5 Compression of brain; E05.00 Thyrotoxicosis with diffuse goiter without thyrotoxic crisis or storm
CPT/HCPCS: 74018; 81003; 81025; 99213; G0463

== ENCOUNTER 2024-12-04 09:48 | Outpatient (CLI) | payer OTHER, SELFPAY ==
--- OUTSIDE RECORDS SUMMARY | 2024-12-04 11:13 | XMS_ITS | Clinical Summary ---
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
--- OUTSIDE RECORDS SUMMARY | 2024-12-04 11:13 | XMS_ITS | Clinical Summary ---
Author Organization [facility] Address [address] [facility] [place] [address] Care Team Providers Care Rides Supervisor Name Role Phone Alena Verma MD Primary Care Provider + Source Comments [facility],non-owned Affiliates and Associated Physician Practices is amultiple site organization consisting of ambulatory clinics and hospital sitesin [place], [place], [place] and [place]. This disclosure is being madepursuant to the Care Everywhere program and may not contain all information available regarding this patient. Last updated 18.[facility] Active Problems Problem Noted Date Diagnosed [...] to complete this topic MENINGOCOCCAL (Group B) VACC INE SHARED DECISION-MAKING Aged Out No longer eligibl e based on patient's age to complete this topic MENINGOCOCCAL GROUPS A/C/Y/W VACCINE Aged Out No longer eligible b ased on patient's age to complete this topic PNEUMOCOCCAL VACCINE Aged Out No long er eligible based on patient's age to complete this topic Care Teams Rides Supervisor Relationship Specialty Start Date End Date Alena Verma MD [address] [place] [address] PCP - General 07/17/18
--- OUTSIDE RECORDS SUMMARY | 2024-12-04 11:13 | XMS_ITS | Referral Summary ---
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
--- OUTSIDE RECORDS SUMMARY | 2024-12-04 11:14 | XMS_ITS ---
Author Organization [facility] Address [address] [place] [address] Care Team Providers Care Senior Application Programmer Name Role Phone Dr. Alena Kessler Primary Care Provider Un available Dr. Bradford Schaffer Unavailable [phone] Sherry Diego Unavailable [phone] Allergies No Known Allergies REASON FOR VISIT [...] Active Encounters Encounter Location Date Provider Diagnosis [facility] [address] [place] [address] [place] [address] 09/27/2024 Sherry Diego Chronic migraine without aura, [...] Provider Name:Sherry galvin, 12/20/2024 11:00:00 AM, [address] [facility], [address], Procedure Notes * Category Sub-Category Detail Notes Toxin Administration onabotulinumtoxinA (BOTOX) Administration Indication: Chronic Migraine Locations and Dosages: Proce talha 5 Units, Sales And Support Center Agent (Left) 5 Units, Sales And Support Center Agent (Right) 5 Units, Frontalis (Left) 12.5 Units, Frontalis (Right) 12.5 Units, Temporalis (Left) 30 Units, Temporalis (Right) 30 Units, Occipitalis (Left) 25 Units, Occipitalis (Right) 25 Units, Cervical Paraspinal (Left) 10 Units, Cervical Paraspinal (Right) 10 Units, Trapezius (Left) 15 Units, Trapezius (Right) 15 Units Frequency: 12 weeks Lot Number / Expiration: See Notes Onabotuinumtoxin A 200 Units BB Botox Lot [id number] Exp 12/2026 Medication Source:: Buy and Bill Source Verification:: Who pu lled drug (please type staff name in notes)? Yoselin Diego Units Administered:: 200 Units Units Wasted:: 0 Units Adverse Reaction(s): None Progress Notes * Nicky ESPOSITOaDOB: 6 (39 yo F)Acc No.[id number]:09/27/2024 Progress Notes Patient: Mary LOVE Provider: Aster Diego APRN :1985 A ge:38 Y S ex:Female Date:09/27/2024 Address:[address] [place], [place] [address] Pcp:Dr. Alena Kessler Subjective: * Chief Complaints: * B otox Only * HPI: * Introduction: I had the pleasure of seeing Bharat Esposito, who presented for follow-up for Botox. * Initial History: INITIAL VISIT HISTORY: This is a 38 [...] has at least a mild headache everyday. * Previous Impression & Plan: Notes Previous Diagnoses: 1. Chronic migraine without aura, not intractable, without status migrainosus - G43.709 (Primary) 2. Myalgia, unspecified site - M79.10, parascapular myofascial pain Previous Recommendations: 1. Abortive: Gave samples of Nurtec and Zavspret on last visit- not yet used. Preventive: Continue Botox injections. 2. Parascapular myofascial pain improved with Botox. * Interval History: Notes Pharmacologic Treatment: Current abortive treatment: Nurtec (effective), Excedrin for milder headaches; Rizatriptan 10 mg (effective, but causes sedation and then cannot function) Previous abortive treatment: S umatriptan (side effects), Fioricet (ineffective), Ubrelvy (ineffective), Zavzpret (ineffective) Current preventive treatment: B otox (first injection was on 01/19/24). She feels like it has helped. The daily headaches are less intense or less bothersome, initially had some reduction in migraine intensity but not now later in cycle. Previous preventive treatment: P ropranolol (side effects; didn't like how she felt on it), Topiramate (side effects, didn't like how she felt on it), Qulipta (ineffective, took for > 2 month) Medication overuse: Not present Headache Frequency: Initial/baseline headache/migraine days/month: 30/4 Last visit headache/migraine days/month: -/1-2 Current headache/migraine days/month: 12-16/5-6 (more frequent over last 2 weeks while toxin wears off) Headache Scales: HIT-6: Current score: not done . Prior score: 64 Interval History: Last visit was on for Botox injection. She reports that she is doing well on Botox and her migraines have been less frequent and less intense. She does notice more migraines in weeks 10-12 of the Botox cycle as the toxin wears off. She used more of her rescue medication over the last two weeks. k. * Headache: Last injection on 07/05/24: Procerus 5 Units, Sales And Support Center Agent (Left) 5 Units, Sales And Support Center Agent (Right) 5 Units, Frontalis (Left) 12.5 Units, Frontalis (Right) 12.5 Units, Temporalis (Left) 30 Units, Temporalis (Right) 30 Units, Occipitalis (Left) 25 Units, Occipitalis (Right) 25 Units, Cervical Paraspinal (Left) 10 Units, Cervical Paraspinal (Right) 10 Units, Trapezius (Left) 15 Units, Trapezius (Right) 15 Units. * ROS: A LLERGY: runny nose N o. s cratchy throat N o. i tchy eyes N o. e ar fullness N o. s inus congestion N o. S PECIAL SENSES: cataracts N o. g laucoma N o. l oss of hearing?No. i tching in ears N o. r inging in ears N o. l oss of balance N o.?loss of smell N o. d ry eyes N o. e xcessive tearing N o. i tching eyes No. l oss of taste N o. c onjunctivitis N o. e ar infections N o. ? C ONSTITUTIONAL: night sweats N o. w eight gain N o. l oss of appetite N o. f ever N o. w eakness N o. w eight loss N o. f atigue?No. E NT: cold N o. c ough N o. e pistaxis N o. h earing loss N o. c hange in voice N o. s ore throat N o. r inging in ears?No. s inus pain N o. R ESPIRATORY: shortness of breath N o. c hest pain N o. c hest congestion N o. c ough N o. O PHTHALMOLOGY: itching N o. s ensitivity to light N o. d ischarge N o. w atering N o. s welling of the eyelids N o. r edness N o. d iminished vision N o. e ye irritation N o. d rainage from eyes N o. b lurring of vision N o. s easonal eye sx N o. E NDOCRINOLOGY: fatigue N o. p olydipsia N o. p olyuria N o. s leep disturbance N o. c old intolerance N o. h eat intolerance N o. d iabetes N o. C ARDIOLOGY: dizziness N o. c hest pain N o. p alpitations?No. l eg edema N o. s hortness of breath N o. G ASTROENTEROLOGY: nausea N o. i ndigestion N o. h emorrhoids N o. v omiting N o. d ysphagia N o. a bdominal pain N o. d iarrhea N o. c onstipation N o. b lood in stool N o. U ROLOGY: difficulty urinating N o. b lood in urine N o. f requent urination N o. u rinary incontinence N o. r ecurrent UTI N o. ? D ERMATOLOGY: rash N o. m ole N o. l umps N o. d ry or sensitive skin N o. h garrick (urticaria) N o. a cne N o. s kin cancer N o. N EUROLOGY: headache Y es,No. t ingling numbness N o. s eizures N o. i nsomnia N o. m bindu loss N o. d izziness N o. g ait abnormality N o. H EMATOLOGY/LYMPH: Positive for P atient denies history of excessive bruising or bleeding diasthesis. M USCULOSKELETAL: gout N o. j oint stiffness N o. l eg cramps?No. j oint pain N o. j oint swelling N o. s ciatica N o. o steoporosis?No. f racture N o. c arpal tunnel N o. P SYCHOLOGY: depression N o. h igh stress level N o. s leep disturbances N o. s uicidal ideation N o. e ating disorder N o. m ental or physical abuse N o. a nxiety N o. F EMALE REPRODUCTIVE: heavy periods N o. h ot flashes N o. a bnormal vaginal discharge N o. s exually active N o. i nfertility N o. f requent yeat infections N o. p elvic pain N o. b reast pain N o. n ipple discharge N o. A re you ? N o. A re you planning on a future pregancy? N o. * Medical History: * Surgical History: * Hospitalization/Major Diagno stic Procedure: * Family History: F ather: No. M other: No. P aternal Grand Father: No. P aternal Grand Mother: No.?Maternal Grand Father: No. M aternal Grand Mother: No. S iblings: No. C hildren: No. Not aware of a family history of migraine. * Social History: S moking Have you ever smoked tobacco: n ever smoked Additional Findings: Tobacco Non-User A ggressive non-smoker Are you a : n ever smoker R ecreational drug use Have you ever used recreational drugs? Y es What kind of drugs? m arijuana D etails on consumption of certain products? Do you regularly consume products with aspartame; Equal or NutraSweet? N o Do you regularly consume products with artificial coloring??No Have you ever noticed worsening of your rash with these food items? N o E xercise What kind(s) of exercise do you perform regularly? w alking,jogging,biking,cardio How often do you perform this exercise? w eekly A re any of the following personal care products containing fragrance, dye or preservatives used regularly? Shampoo: N o Conditioner: N o Soap: N o Laundry Detergent: N o Fabric Softener: N o Deodorant: N o Perfume, cologne, after shave: N o Air freshners or other scented products: N o Hair coloring dyes or rinses: N o Other: N o O ccupation Are you currenly employed? Y es Employment status? 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 N o Do you anticipate that your evaluation will be used in any legal action against your current employer or former employer? N o Have you had any job with high exposure to fumes, chemicals, dust or other noxious substances? N o Are you currently a student? N o E nvironmental History Living environment: p rivate home Where is the home located? [place] How long have you lived there? 2 -4 years How many people live in the home? 2 0 H ome description Basement: Y es Any water damage in basement? N o Smokers in the home? N o Smokers outside the home? N o Air Conditioning? Y es Central Air? Y es Forced air heating? Y es Gas or electric? e lectric Fireplace? Y es Wood burning stove? N o Do you vacuum the home? Y es Air purification systems? Y es Is it a HEPA (high-efficiency particulate air filter)? Y es Ionizer on air purification system? Y es Pillow and mattress dust-proof encasings? Y es Do you use a humidifier? Y es Whole house or room? r oom humidifier Does it have a humidistat? N o Is it used year-round, seasonal, or as needed? a s needed Is the humidifier cleaned regularly? Y es Do you own any pets? Y es What kind(s)? (click all that apply) d og Where do your pets sleep? b edroom Fabric softeners used? Y es Plants in the home? N o Is there carpeting in your bedroom? Y es Do you have ilxo-vf-khjb carpeting? N o What is the age of your mattress (years)? 1 What material(s) are used to manufacture your bedding and pillow? n atural fiber (e.g. cotton) What is the age of your pillow (years)? 1 What material are your bedding items made of? n atural fiber (e.g. cotton) Do you sleep with quilts or blankets or a duvet? Y es What material? n atural fiber (e.g. cotton) How many dogs? 1 N on-smoker. * Medications: T akingRizatriptan Benzoate 10 MG Tablet 1 tablet Orally twice daily As neededmethIMAzole 5 MG Tablet 1 tablet Orally Once a day Taking Rizatriptan Benzoate 10 MG Tablet 1 tablet Orally twice daily As neededTaking methIMAzole 5 MG Tablet 1 tablet Orally Once a day * Allergies: N .K.D.A.no[Allergies Verified] Objective: * Vitals: * Examination: G eneral examination: General appearance: P leasant, well-developed, no distress.? HEENT: N o papilledema. M ild bilateral proptosis..? Neurologic exam: A lert and oriented x 4. Fluent speech. CN II-XII intact. M otor 5/5 strength in all extremities. Reflexes 2+/2 and symmetric in all extremities. Gait normal. Assessment: * Assessment: 1. C hronic migraine without aura, not intractable, without status migrainosus - G43.709 (Primary) Plan: * Treatment: * Procedures: T oxin Administration: onabotulinumtoxinA (BOTOX) Administration I ndication C hronic Migraine L ocations and Dosages P rocerus 5 Units, Sales And Support Center Agent (Left) 5 Units, Sales And Support Center Agent (Right) 5 Units, Frontalis (Left) 12.5 Units, Frontalis (Right) 12.5 Units, Temporalis (Left) 30 Units, Temporalis (Right) 30 Units, Occipitalis (Left) 25 Units, Occipitalis (Right) 25 Units, Cervical Paraspinal (Left) 10 Units, Cervical Paraspinal (Right) 10 Units, Trapezius (Left) 15 Units, Trapezius (Right) 15 Units F requency 1 2 weeks L ot Number / Expiration S ee Notes Onabotuinumtoxin A200 Units BBBotox Lot [id number] 12/2026 M edication Source: B stefany and Abisai Galvin ourflori Verification: W ho pulled drug (please type staff name in notes)? Yoselin Diego U nits Administered: 2 00 Units U nits Wasted: 0 Units A dverse Reaction(s) N one * Procedure Codes: 6 4615 CHEMODENERV [facility] [id number] BOTULINUM TOXIN TYPE A PER UNIT, Units: 200.00 , Modifiers: ACE G8427 DOC MEDS VERIFIED W/PT OR PBS1056 Complex e/m visit add on * Follow Up: 3 Months (Reason: Evaluation and Management. Toxin injection) * Billing Information: * Visit Code: 64620 Office Visit, Est Pt., Level 3. Modifiers: 25 * Procedure Codes: 17593 CHEMODENERV [facility] MIGRAINE. J0585 BOTULINUM TOXIN TYPE A PER UNIT. Units: 200.00. Modifiers: ACE G8427 DOC MEDS VERIFIED W/PT OR RE. G2211 Complex e/m visit add on. * OGICAL SPECIALIST Electronically co-signed by Dr. Bradford Schaffer MD on 10/04/2024 at 01:40 PM GEOLOGICAL SPECIALIST Sign off status: Completed true * Provider: Aster Diego APRN Date: 0 09/27/2024 Generated for Munir noland/Yari/Neetaitting on: 0 12/04/2024 11:13 AM CDT History and Physical Notes * HPI (History of Present Illness) Category Sub-Category Detail Notes Category Notes *Introduction I had the pleasure of seeing Mary Esposito, who presented for follow-up for Botox *Headache Last injection on 07/05/24: Procerus 5 Units, Sales And Support Center Agent (Left) 5 Units, Sales And Support Center Agent (Right) 5 Units, Frontalis (Left) 12.5 Units, [...] Frequency:Initial/baseline headache/migraine days/month: 30/4Last visit headache/migraine days/month: -/1-2Current headache/migraine days/month: 12-16/5-6 (more frequent over last [...]
--- OUTSIDE RECORDS SUMMARY | 2024-12-04 11:14 | XMS_ITS ---
Author Organization [facility] Address [address] [place] [address] Care Team Providers Care Residential Door Installer Name Role Phone Dr. Alena Kessler Primary Care Provider Un available Dr. Bradford Schaffer Unavailable [phone] Sherry Diego Unavailable [phone] REASON FOR VISIT Botox Only Medications Medication SIG (Take, Route, Frequency, Duration) Notes Start Date End Date Status methIMAzole 5 MG 1 tablet Orally Once a day Active Rizatriptan Benzoate 10 MG 1 tablet Orally twice daily As needed Active Encounters Encounter Location Date Provider Diagnosis [facility] [address] [place] [address] 07/05/2024 Sherry Diego Chronic migraine without aura, not intractable, without status migrainosus G43.709 Assessments Encounter Date Diagnosis (ICD Code) Assessment Notes Treatment Notes Treatment Clinical Notes Section Notes 07/05/2024 Chronic migraine without aura, not intractable, without status migrainosus (ICD-10 - G43.709) Plan Of Treatment Next Appt Details Follow Up: 3 Months, Reason: Toxin injection Provider Name:Sherry galvin, 12/20/2024 11:00:00 AM, [address], [address], [place], [address], Procedure Notes * Category Sub-Category Detail Notes Toxin Administration onabotulinumtoxinA (BOTOX) Administration Indication: Chronic Migraine Locations and Dosages: Proce talha 5 Units, Oil Field Equipment Mechanic (Left) 5 Units, Oil Field Equipment Mechanic (Right) 5 Units, Frontalis (Left) 12.5 Units, Frontalis (Right) 12.5 Units, Temporalis (Left) 30 Units, Temporalis (Right) 30 Units, Occipitalis (Left) 25 Units, Occipitalis (Right) 25 Units, Cervical Paraspinal (Left) 10 Units, Cervical Paraspinal (Right) 10 Units, Trapezius (Left) 15 Units, Trapezius (Right) 15 Units Frequency: 12 weeks Lot Number / Expiration: See Notes Botox Lot# [id number], Exp 11/2026 Medication Source:: Buy and Bill Units Administered:: 200 Units Units Wasted:: 0 Units Adverse Reaction(s): None Progress Notes * STEPHY AyoB: 6 (38 yo F)Acc No.[id number]:07/05/2024 Progress Notes Patient: Mary LOVE Provider: Aster Diego APRN :1985 A ge:38 Y S ex:Female Date:07/05/2024 Address:[address] [place], [place] [id number] Pcp:Dr. Alena Kessler Subjective: * Chief Complaints: * B otox Only * HPI: * Headache: Last injection on 04/12/24: Procerus 5 Units, Oil Field Equipment Mechanic (Left) 5 Units, Oil Field Equipment Mechanic (Right) 5 Units, Frontalis (Left) 12.5 Units, [...] month) Baseline Headache/Migraine Frequency (prior to Botox) ( days/month): 3 0/4 Last Injection Visit Headache/Migraine frequency: 2 0-25/1-2 Current Headache/Migraine Frequency ( days/month): 15-20/1-2 (more frequent over the last two weeks of Botox cycle). * Medical History: * Surgical History: * Hospitalization/Major Diagno stic Procedure: * Medications: T akingRizatriptan Benzoate 10 MG Tablet 1 tablet Orally twice daily As neededmethIMAzole 5 MG Tablet 1 tablet Orally Once a day Taking Rizatriptan Benzoate 10 MG Tablet 1 tablet Orally twice daily As neededTaking methIMAzole 5 MG Tablet 1 tablet Orally Once a day Objective: * Vitals: Assessment: * Assessment: 1. C hronic migraine without aura, not intractable, without status migrainosus - G43.709 (Primary) Plan: * Treatment: * Procedures: T oxin Administration: onabotulinumtoxinA (BOTOX) Administration I ndication C hronic Migraine L ocations and Dosages P rocerus 5 Units, Oil Field Equipment Mechanic (Left) 5 Units, Oil Field Equipment Mechanic (Right) 5 Units, Frontalis (Left) 12.5 Units, Frontalis (Right) 12.5 Units, Temporalis (Left) 30 Units, Temporalis (Right) 30 Units, Occipitalis (Left) 25 Units, Occipitalis (Right) 25 Units, Cervical Paraspinal (Left) 10 Units, Cervical Paraspinal (Right) 10 Units, Trapezius (Left) 15 Units, Trapezius (Right) 15 Units F requency 1 2 weeks L ot Number / Expiration S ee Notes Botox Lot# [id number], Exp 11/2026 M edication Source: B uy and Bill U nits Administered: 2 00 Units U nits Wasted: 0 Units A dverse Reaction(s) N one * Procedure Codes: 6 4615 CHEMODENERV [facility] [id number] BOTULINUM TOXIN TYPE A PER UNIT, Units: 200.00 , Modifiers: JZ * Follow Up: 3 Months (Reason: Toxin injection) * Billing Information: * Visit Code: * Procedure Codes: 56428 CHEMODENERV [facility] MIGRAINE. J0585 BOTULINUM TOXIN TYPE A PER UNIT. Units: 200.00. Modifiers: JZ * Sign off status: Completed true * Provider: Aster Diego APRN Date: Generated for Printi ng/Faxing/eTransmitting on: 0 12/04/2024 11:14 AM CDT History and Physical Notes * HPI (History of Present Illness) Category Sub-Category Detail Notes Category Not es *Headache Last injection on 04/12/24: Procerus 5 Units, Oil Field Equipment Mechanic (Left) 5 Units, Oil Field Equipment Mechanic (Right) 5 Units, Frontalis (Left) 12.5 Units, [...]
--- OUTSIDE RECORDS SUMMARY | 2024-12-04 11:14 | XMS_ITS | Patient Health Record ---
Author Organization [facility] Address [address] [place] [address] Care Team Providers Care Skin Peeling Machine Operator Name Role Phone Dr. Alena Kessler Primary Care Provider Un available Dr. Bradford Schaffer Unavailable [phone] Sherry Diego Unavailable [phone] Allergies No Known Allergies Reason For Referral Reason Botox PA 200 Units f or G43.709 Diagnosis 1 Chronic migraine wit hout aura, not intractable, without status migrainosus (G43.709) Referral Organization [facility] Referring Provider First Name Bradford Referring Provider Last Name Karime Referring Provider Speciality Neurology Referred Organization [facility] Referred Provider Tim Schaffer Referred Address [address] [place], [place],[address], Referred Provider Specialty Neurology Procedure 1 BOTULINUM TOXIN TYPE A PER UNIT 100 UN (J0585) Procedure 2 [facility]MOD[facility]ERV [facility] (10842) Referral Priority Routine Medications Medication SIG (Take, [...] Chronic migraine without aura, non-refractor y (disorder) (033792758651 100) Migraine without aura, not intractable, without status migrainosus (G43.009) Active confirmed Problem Migraine with aura (0144904) Migraine with aura, not intractable, without status migrainosus (G43.109) Active confirmed Problem Chronic migraine without aura, non-intractab le (071904243862 100) Chronic migraine without aura, not intractable, without status migrainosus (G43.709) Active confirmed Problem Muscle pain (64548555) Myalgia, unspecified site (M79.10) Active confirmed Vital Signs Respiratory Rate 16 /min 03/01/2024 Oximetry 99 % 05/24/2024 Blood pressure diastolic 76 mm Hg 05/24/2024 Height 63 in 05/24/2024 Blood pressure systolic 129 mm Hg 05/24/2024 Weight 159.0 lbs 03/01/2024 BMI 28.16 kg/m2 03/01/2024 Encounters Encounter Location Date Provider Diagnosis [facility] [employer] [address] [address] 03/01/2024 Bradford Schaffer Chronic migraine without aura, not intractable, without status migrainosus G43.709 and Myalgia, unspecified site M79.10 [place] [address] [employer] [address] [address] 04/12/2024 Bradford Schaffer Chronic migraine without aura, not intractable, without status migrainosus G43.709 [place] [address] [employer] [address] [address] 05/24/2024 Bradford Schaffer Chronic migraine without aura, not intractable, without status migrainosus G43.709 and Myalgia, unspecified site M79.10 [place] [address] [employer] [address] [address] 07/05/2024 Sherry Diego Chronic migraine without aura, not intractable, without status migrainosus G43.709 [place] [address] [employer] [address] [address] 09/27/2024 Sherry Diego Chronic migraine without aura, not intractable, without status migrainosus G43.[address] [address] 10/02/2024 Bradford Karime Assessments Encounter Date Diagnosis [...] Provider Name:Sherry galvin, 12/20/2024 11:00:00 AM, [address] [facility], [address], [place], [address], Insurance Providers Payer Name Payer Address Payer Phone Subscriber Number Group Number Insured Name Patient Relationship to Insured Coverage Start Date Coverage End Date [employer] POS II [address] [place] [address] [id number] Mary Esposito Self - patient is the insured 3 Medical (General) History Medical History History ICD Code Grave's disease Thyroid ophthalmopathy Migraine
--- OUTSIDE RECORDS SUMMARY | 2024-12-04 11:14 | XMS_ITS ---
Author Organization [facility] Address [address] [place] [address] Care Team Providers Care Charge Preparation Technician Name Role Phone Dr. Alena Kessler Primary Care Provider Un available Dr. Bradford Schaffer Unavailable [phone]ASON FOR V[address]IT [facility] Approved 10/02/2024-10/02/2025 Encounters Encounter Location Date Provider Diagnosis [facility] [address] [place] [address] 10/02/2024 Bradford Schaffer Plan Of Treatment Next Appt Details Provider Name:Sherry galvin, 12/20/2024 11:00:00 AM, [address] [facility], [address], [address], Progress Notes * Ayo ESPOSITOB: 6 (39 yo F)Acc No.[id number]:10[birth year]24 Patient: Rene PERRY Maximedemetricenikolay :1985 A ge:39 Y S ex:Female Address:[address] [place] [address] [employer] [address], [place], [address] * true * Date: Generated for Printi ng/Faxing/eTransmitting on: 0 12/04/2024 11:14 AM CDT
== END 2024-12-04 09:49 | disposition home or self-care (01) ==
LOC: ANHSURGERY 09:50
PROVIDERS: PCP Family Medicine; Visit Provider Obstetrics & Gynecology
DX: N85.2 Hypertrophy of uterus (principal)
CPT/HCPCS: 36415; 86850; 86900; 86901

== ENCOUNTER 2024-12-04 10:00 | Outpatient (CLI) | payer OTHER, SELFPAY ==
[2024-12-04 11:00] LABS: Thyroid Stimulating Hormone Reflex 0.866 uIU/mL (0.465-4.68)
== END 2024-12-04 10:01 | disposition home or self-care (01) ==
LOC: ANHLAB 10:00
PROVIDERS: PCP Family Medicine; Visit Provider Internal Medicine
DX: E05.90 Thyrotoxicosis, unspecified without thyrotoxic crisis or storm (principal)
CPT/HCPCS: 36415; 84443

== ENCOUNTER 2024-12-07 00:37 | Day surgery (SDC) | payer OTHER, SELFPAY ==
[2024-11-27 09:36] VITALS: BMI 24.7
--- NOTE | 2024-11-27 10:03 | PC.NURSE ---
Report to the Outpatient Waiting Room, entrance under the green pavilion located off [facility], at 0730 on 12-07-24. Planned Procedure Time: 0930.? Time changes happen often and if your time is changed the preop area will call you the afternoon before. - You and your visitor will be asked to self-screen and do not enter if you have any COVID symptoms. Please call surgeon if you need to reschedule. - A mask is optional within the hospital at this time. Patients may have clear liquids (water, carbonated beverages, clear teas, apple juice) until 3 hours prior to surgery with a maximum of 20 ounces. 0630 - No food from midnight until time of surgery and no smoking, or chewing tobacco (or any form of nicotine). No chewing gum, candy or mints. - Infants may have breast milk until 4 hours before surgery, formula 6 hours prior to surgery. - Children will be allowed to drink immediately following surgery.? If applicable, please bring a bottle or sippy cup to assist with drinking. Juice, water, soda, and popsicles are readily available.? For infants on formula, please bring formula the day of surgery.? Pacifiers are allowed. Take only the following medications with a SIP of water on the morning of surgery: methimazole, Tylenol if needed, migraine meds if needed DO NOT STOP ANY OF YOUR OTHER PRESCRIPTION MEDICATIONS PRIOR TO SURGERY EXCEPT THE FOLLOWING Hold all vitamins and supplements for 3 days per anesthesiologist. Medications to discontinue per physician: N/A Please no make-up, nail ukrainian, hairspray, perfume, deodorant, or body powder the day of surgery.? No jewelry (including any body piercings) or valuables the day of surgery, leave them at home.? Please take a shower or bath the night before, or the morning of, surgery with an antibacterial soap.? Wear comfortable, loose fitting clothing.? Children are encouraged to wear pajamas. - Jewelry must be removed prior to entering the operating room.? Rings and piercings that are not removed may be cut off. - The hospital will not accept responsibility for valuables.? - Please leave all valuables, including medications, at home the day of surgery. If you are going home after surgery, a licensed freight delivery driver must drive you home.? - NO public transportation without another adult if you receive anesthesia. - We recommend that an adult stay with you for 24 hours following discharge. - We also recommend that you do not drive, make important decision, drink alcoholic beverages, or take any drugs that were not prescribed by your health care provider for at least 24 hours after your discharge time. For Pediatric surgeries, we recommend two adults accompany the child home. Follow any additional instructions given to you from your surgeon. Telephone instructions given to and asked if any additional questions and then verbalized understanding. Patient advised to call surgeon office or pre surgery nurse liaison [phone] if any additional questions.
--- NOTE | 2024-12-04 07:50 | PM.IMHP ---
H&P: HPI History of Present Illness Date/Time: 12/04/24 07:50 Chief Complaint: Pelvic pain and uterine fibroids Narrative: 39-year-old female admitted for robotic hysterectomy bilateral salpingectomy secondary to symptomatic uterine fibroids. The patient complains of heavy bleeding and severe pelvic pain she understands this to be a permanent procedure to make her infertile. Ovaries will remain risks and benefits reviewed in great details. She received the [employer] handout entitled hysterectomy as well as the [facility] handout. She had all questions answered and asked to proceed Review of Systems Review of Systems: Pertinent positives per HPI. Patient denies any fever, chills, rash, headache, visual changes, dizziness, cough, runny nose, sore throat, shortness of breath, chest pain, palpitations, nausea, vomiting, diarrhea, constipation, or any urinary issues. [facility] Past Medical History Medical History Menometrorrhagia Chronic tension-type headache, not intractable Body mass index (BMI) 23 or greater (03/31/17) Thyroid eye disease Anxiety Palpitations Chiari I malformation Elevated prolactin level Migraines Hyperthyroidism Graves disease Micromastia Goiter diffuse Pharyngitis Nasal polyp Tension headache Surgical History Surgical History H/O breast augmentation Family History Family History Father Family history of alcoholism Family history of liver disease, Onset Age: 46 Patient's father is Mother Carcinoma of colon, Onset Age: 33 Sibling Family history of malignant neoplasm of testis, Onset Age: 28 Social History Social History Social History: Smoking status: Never smoker Second hand tobacco smoke exposure: No Alcohol intake: current Alcohol use details: socially Substance use: never Substance use type: does not use Do You Feel Safe in your Home?: Yes Lack of Transportation: No Lack of Food: Never True Current Housing: I Have Housing Concerned About Future Housing: No Difficulty Paying Gas/Electric Bills: No Difficulty Paying for Meds: No Currently Unemployed: No Education: Master's Degree or Higher Difficulty w/ Childcare or Family Care: No Living arrangements: with family Occupation/Education: occupation 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 Gender identity (if verbalized by the patient): Female Sexual Orientation (if Verbalized by the Patient): Straight or Heterosexual Spiritual care concerns: No Meds Home Medications and Allergies Home Medications ?Medication ?Instructions ?Recorded ?Confirmed ?Type methimazole 5 mg tablet 2.5 mg PO DAILY 10/26/23 11/27/24 History clobetasol 0.05 % topical cream See Rx Instructions .Route 10/22/24 11/27/24 Rx .COMPLEX #15 grams acetaminophen 325 mg tablet 650 mg PO Q6H PRN fever or pain 11/27/24 11/27/24 History atogepant 30 mg tablet (Qulipta) 30 mg PO DAILY PRN migraine 11/27/24 11/27/24 History headache rimegepant 75 mg disintegrating 75 mg PO DAILY PRN migraine 11/27/24 11/27/24 History tablet (Nurtec ODT) headache Allergies Allergy/AdvReac Type Severity Reaction Status Date / Time iodine Allergy Intermediate SWELLING Verified 11/27/24 09:27 shellfish derived Allergy Intermediate Swelling Verified 11/27/24 09:27 Exam Const: General: cooperative, healthy appearing and comfortable Nutritional Appearance: average body habitus Orientation/consciousness: oriented to person, oriented to place and oriented to time HENMT: Head: normal to inspection Resp: Effort & Inspection: normal respiratory effort Cardio: Rate: regular rate Rhythm: regular rhythm Heart sounds: S1 normal heart sound present and S2 normal heart sound present GI: Inspection: normal to inspection : External Female Exam: normal external appearance Speculum Exam - Vagina: normal appearance of the vagina Speculum Exam - Cervix: normal appearance of the cervix Bimanual exam- vagina & uterus: enlarged, nodular and Uterine tenderness Bimanual Exam- Adnexa, other: normal adnexae Assessment and Plan Assessment and plan (1) Uterine fibroid: Code(s): D25.9 - Leiomyoma of uterus, unspecified Status: Acute Plan Proceed with robotic total vaginal hysterectomy and bilateral salpingectomy
[2024-12-07] VITALS (13 sets, daily range): BP systolic 97–125; BP diastolic 54–84; PULSE 61–79; RESP 10–20; TEMP 36.3–37.4; O2SAT 95–100
--- OUTSIDE RECORDS SUMMARY | 2024-12-07 00:40 | XMS_ITS | Clinical Summary ---
Author Organization [facility] Address [address] [place] [address] Care Team Providers Care Customs Broker Name Role Phone Alena Verma MD Primary Care Provider + Source Comments [facility],non-owned Affiliates and Associated Physician Practices is amultiple site organization consisting of ambulatory clinics and hospital sitesin [place], [place], [place] and [place]. This disclosure is being madepursuant to the Care Everywhere program and may not contain all information available regarding this patient. Last updated 18.[facility] Active Problems Problem Noted Date Diagnosed [...] age to complete this topic Care Teams Customs Broker Relationship Specialty Start Date End Date Alena Verma MD [address] [place] [address] PCP - General 07/17/18
--- OUTSIDE RECORDS SUMMARY | 2024-12-07 00:40 | XMS_ITS ---
Author Organization [facility] Address [address] [place] [address] Care Team Providers Care Entry Level Machine Operator Name Role Phone Dr. Alena Kessler Primary Care Provider Un available Dr. Bradford Schaffer Unavailable [phone] Sherry Diego Unavailable [phone] REASON FOR VISIT Botox Only Medications Medication SIG (Take, Route, Frequency, Duration) Notes Start Date End Date Status methIMAzole 5 MG 1 tablet Orally Once a day Active Rizatriptan Benzoate 10 MG 1 tablet Orally twice daily As needed Active Encounters Encounter Location Date Provider Diagnosis [facility] [address] [place] [address] 07/05/2024 Sherry Diego Chronic migraine without aura, not intractable, without status migrainosus G43.709 Assessments Encounter Date Diagnosis (ICD Code) Assessment Notes Treatment Notes Treatment Clinical Notes Section Notes 07/05/2024 Chronic migraine without aura, not intractable, without status migrainosus (ICD-10 - G43.709) Plan Of Treatment Next Appt Details Follow Up: 3 Months, Reason: Toxin injection Provider Name:Sherry galvin, 12/20/2024 11:00:00 AM, [address], [address], [place], [address], Procedure Notes * Category Sub-Category Detail Notes Toxin Administration onabotulinumtoxinA (BOTOX) Administration Indication: Chronic Migraine Locations and Dosages: Proce talha 5 Units, Char Dust Cleaner And Salvager (Left) 5 Units, Char Dust Cleaner And Salvager (Right) 5 Units, Frontalis (Left) 12.5 Units, Frontalis (Right) 12.5 Units, Temporalis (Left) 30 Units, Temporalis (Right) 30 Units, Occipitalis (Left) 25 Units, Occipitalis (Right) 25 Units, Cervical Paraspinal (Left) 10 Units, Cervical Paraspinal (Right) 10 Units, Trapezius (Left) 15 Units, Trapezius (Right) 15 Units Frequency: 12 weeks Lot Number / Expiration: See Notes Botox Lot# [id number], Exp 11/2026 Medication Source:: Buy and Bill Units Administered:: 200 Units Units Wasted:: 0 Units Adverse Reaction(s): None Progress Notes * STEPHY AyoB: 6 (38 yo F)Acc No.[id number]:07/05/2024 Progress Notes Patient: Mary LOVE Provider: Aster Diego APRN :1985 A ge:38 Y S ex:Female Date:07/05/2024 Address:[address] [place], [place] [phone] Pcp:Dr. Alena Kessler Subjective: * Chief Complaints: * B otox Only * HPI: * Headache: Last injection on 04/12/24: Procerus 5 Units, Char Dust Cleaner And Salvager (Left) 5 Units, Char Dust Cleaner And Salvager (Right) 5 Units, Frontalis (Left) 12.5 Units, [...] ocations and Dosages P rocerus 5 Units, Char Dust Cleaner And Salvager (Left) 5 Units, Char Dust Cleaner And Salvager (Right) 5 Units, Frontalis (Left) 12.5 Units, Frontalis (Right) 12.5 Units, Temporalis (Left) 30 Units, Temporalis (Right) 30 Units, Occipitalis (Left) 25 Units, Occipitalis (Right) 25 Units, Cervical Paraspinal (Left) 10 Units, Cervical Paraspinal (Right) 10 Units, Trapezius (Left) 15 Units, Trapezius (Right) 15 Units F requency 1 2 weeks L ot Number / Expiration S ee Notes Botox Lot# [id number], Exp 11/2026 M edication Source: B uy and Bill U nits Administered: 2 00 Units U nits Wasted: 0 Units A dverse Reaction(s) N one * Procedure Codes: 6 4615 [facility]MODENERV [facility] [id number] BOTULINUM TOXIN TYPE A PER UNIT, Units: 200.00 , Modifiers: JZ * Follow Up: 3 Months (Reason: Toxin injection) * Billing Information: * Visit Code: * Procedure Codes: 51766 CHEMODENERV [facility] MIGRAINE. J0585 BOTULINUM TOXIN TYPE A PER UNIT. Units: 200.00. Modifiers: JZ * Sign off status: Completed true * Provider: Aster Diego APRN Date: Generated for Printi ng/Faxing/eTransmitting on: 0 12/07/2024 12:40 AM CDT History and Physical Notes * HPI (History of Present Illness) Category Sub-Category Detail Notes Category Not es *Headache Last injection on 04/12/24: Procerus 5 Units, Char Dust Cleaner And Salvager (Left) 5 Units, Char Dust Cleaner And Salvager (Right) 5 Units, Frontalis (Left) 12.5 Units, [...]
--- OUTSIDE RECORDS SUMMARY | 2024-12-07 00:40 | XMS_ITS ---
Author Organization [facility] Address [address] [place] [address] Care Team Providers Care Motorcycle Subassembler Name Role Phone Dr. Alena Kessler Primary Care Provider Un available Dr. Bradford Schaffer Unavailable [phone] Sherry Diego Unavailable [phone] Allergies No Known Allergies REASON FOR VISIT [...] Active Encounters Encounter Location Date Provider Diagnosis [facility] [address] [place] [address] [place] [address] 09/27/2024 Sherry Diego Chronic migraine without aura, [...] Provider Name:Sherry galvin, 12/20/2024 11:00:00 AM[facility] [address] [facility] [address], [address], Procedure Notes * Category Sub-Category Detail Notes Toxin Administration onabotulinumtoxinA (BOTOX) Administration Indication: Chronic Migraine Locations and Dosages: Proce talha 5 Units, Precision Assembler Bench (Left) 5 Units, Precision Assembler Bench (Right) 5 Units, Frontalis (Left) 12.5 Units, Frontalis (Right) 12.5 Units, Temporalis (Left) 30 Units, Temporalis (Right) 30 Units, Occipitalis (Left) 25 Units, Occipitalis (Right) 25 Units, Cervical Paraspinal (Left) 10 Units, Cervical Paraspinal (Right) 10 Units, Trapezius (Left) 15 Units, Trapezius (Right) 15 Units Frequency: 12 weeks Lot Number / Expiration: See Notes Onabotuinumtoxin A 200 Units BB Botox Lot [id number] Exp 12/2026 Medication Source:: Buy and Bill Source Verification:: Who pu lled drug (please type staff name in notes)? Yoselin Diego Units Administered:: 200 Units Units Wasted:: 0 Units Adverse Reaction(s): None Progress Notes * Nicky ESPOSITOaDOB: 6 (39 yo F)Acc No.[id number]:09/27/2024 Progress Notes Patient: Mary LOVE Provider: Aster Diego APRN :1985 A ge:38 Y S ex:Female Date:09/27/2024 Address:[address] [place], [place] [phone] Pcp:Dr. Alena Kessler Subjective: * Chief Complaints: [...] Last injection on 07/05/24: Procerus 5 Units, Precision Assembler Bench (Left) 5 Units, Precision Assembler Bench (Right) 5 Units, Frontalis (Left) 12.5 Units, [...] your bedroom? Y es Do you have [id number]-[id number] carpeting? N o What is the age [...] ocations and Dosages P rocerus 5 Units, Precision Assembler Bench (Left) 5 Units, Precision Assembler Bench (Right) 5 Units, Frontalis (Left) 12.5 Units, Frontalis (Right) 12.5 Units, Temporalis (Left) 30 Units, Temporalis (Right) 30 Units, Occipitalis (Left) 25 Units, Occipitalis (Right) 25 Units, Cervical Paraspinal (Left) 10 Units, Cervical Paraspinal (Right) 10 Units, Trapezius (Left) 15 Units, Trapezius (Right) 15 Units F requency 1 2 weeks L ot Number / Expiration S ee Notes Onabotuinumtoxin A200 Units BBBotox Lot [id number] 12/2026 M edication Source: B stefany and Abisai Galvin ourflori Verification: W ho pulled drug (please type staff name in notes)? Yoselin Diego U nits Administered: 2 00 Units U nits Wasted: 0 Units A dverse Reaction(s) N one * Procedure Codes: 6 4615 CHEMODENERV [facility] [id number] BOTULINUM TOXIN TYPE A PER UNIT, Units: 200.00 , Modifiers: ACE G8427 DOC MEDS VERIFIED W/PT OR [id number] Complex e/m visit add on * Follow Up: 3 Months (Reason: Evaluation and Management. Toxin injection) * Billing Information: * Visit Code: 21953 Office Visit, Est Pt., Level 3. Modifiers: 25 * Procedure Codes: 37756 CHEMODENERV [facility] MIGRAINE. J0585 BOTULINUM TOXIN TYPE A PER UNIT. Units: 200.00. Modifiers: ACE G8427 DOC MEDS VERIFIED W/PT OR RE. G2211 Complex e/m visit add on. * NG MACHINE OPERATOR Electronically co-signed by Dr. Bradford Schaffer MD on 10/04/2024 at 01:40 PM CONING MACHINE OPERATOR Sign off status: Completed true * Provider: Aster Diego APRN Date: 0 09/27/2024 Generated for Munir noland/Yari/Neetaitting on: 0 12/07/2024 12:40 AM CDT History and Physical Notes * HPI (History of Present Illness) Category Sub-Category Detail Notes Category Notes *Introduction I had the pleasure of seeing Mary Esposito, who presented for follow-up for Botox *Headache Last injection on 07/05/24: Procerus 5 Units, Precision Assembler Bench (Left) 5 Units, Precision Assembler Bench (Right) 5 Units, Frontalis (Left) 12.5 Units, [...]
--- OUTSIDE RECORDS SUMMARY | 2024-12-07 00:40 | XMS_ITS ---
Author Organization [facility] Address [address] [place] [address] Care Team Providers Care Machine Bander And Cellophaner Name Role Phone Dr. Alena Kessler Primary Care Provider Un available Dr. Bradford Schaffer Unavailable [phone] REASON FOR VISIT [facility] Approved 10/02/2024-10/02/2025 Encounters Encounter Location Date Provider Diagnosis [facility] [address] [place] [address] 10/02/2024 Bradford Schaffer Plan Of Treatment Next Appt Details Provider Name:Sherry galvin, 12/20/2024 11:00:00 AM, [address] [facility], [address], [place], [address], Progress Notes * Ayo ESPOSITOB: 6 (39 yo F)Acc No.[id number]:10/02/2024 Patient: Rene PERRY Maximedemetricenikolay :1985 A ge:39 Y S ex:Female Address:[address] [place] [address] [address], [place], [address] * true * Date: Generated for Printi ng/Faxing/eTransmitting on: 0 12/07/2024 12:40 AM CDT
--- OUTSIDE RECORDS SUMMARY | 2024-12-07 00:40 | XMS_ITS | Referral Summary ---
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
--- OUTSIDE RECORDS SUMMARY | 2024-12-07 00:40 | XMS_ITS | Patient Health Record ---
Author Organization [facility] Address [address] [place] [address] Care Team Providers Care Pilot Manager Name Role Phone Dr. Alena Kessler Primary Care Provider Un available Dr. Bradford Schaffer Unavailable [phone] Sherry Diego Unavailable [phone] Allergies No Known Allergies Reason For Referral Reason Botox PA 200 Units f or G43.709 Diagnosis 1 Chronic migraine wit hout aura, not intractable, without status migrainosus (G43.709) [facility] Referring Provider First Name Bradford Referring Provider Last Name Karime Referring Provider Speciality Neurology Referred Organization [facility] Referred Provider Tim Schaffer Referred Address [address] [place], [place],[address], Referred Provider Specialty Neurology Procedure 1 BOTULINUM TOXIN TYPE A PER UNIT 100 UN (J0585) Procedure 2 CHEMODENERV [facility] (19589) Referral Priority Routine Medications Medication SIG (Take, [...] Chronic migraine without aura, non-refractor y (disorder) (606729056781 100) Migraine without aura, not intractable, without status migrainosus (G43.009) Active confirmed Problem Migraine with aura (0827463) Migraine with aura, not intractable, without status migrainosus (G43.109) Active confirmed Problem Chronic migraine without aura, non-intractab le (837451400609 100) Chronic migraine without aura, not intractable, without status migrainosus (G43.709) Active confirmed Problem Muscle pain (65445208) Myalgia, unspecified site (M79.10) Active confirmed Vital Signs Respiratory Rate 16 /min 03/01/2024 Oximetry 99 % 05/24/2024 Blood pressure diastolic 76 mm Hg 05/24/2024 Height 63 in 05/24/2024 Blood pressure systolic 129 mm Hg 05/24/2024 Weight 159.0 lbs 03/01/2024 BMI 28.16 kg/m2 03/01/2024 Encounters Encounter Location Date Provider Diagnosis [address] [address] 10/02/2024 Bradford Schaffer [place] [address] [employer] [address] [place] [address] 03/01/2024 Bradford Schaffer Chronic migraine without aura, not intractable, without status migrainosus G43.709 and Myalgia, unspecified site M79.10 [place] [address] [employer] [address] [place] [address] 05/24/2024 Bradford Schaffer Chronic migraine without aura, not intractable, without status migrainosus G43.709 and Myalgia, unspecified site M79.10 [place] [address] [employer] [address] [place] [address] 07/05/2024 Sherry Diego Chronic migraine without aura, not intractable, without status migrainosus G43.709 [place] [address] [employer] [address] [place] [address] 09/27/2024 Sherry Diego Chronic migraine without aura, not intractable, without status migrainosus G43.709 [place] [address] [employer] [address] [place] [address] 04/12/2024 Bradford Schaffer Chronic migraine without aura, not intractable, without status migrainosus G43.709 Assessments Encounter Date Diagnosis (ICD Code) Assessment Notes Treatment Notes Treatment Clinical Notes Section Notes 04/12/2024 Chronic migraine without aura, not intractable, [...] as supplements; keep scheduled follow-up appointments 03/01/2024 Chronic migraine without aura, not intractable, [...] (ICD-10 - M79.10) Botox should help this. Plan Of Treatment Next Appt Details Provider Name:Sherry galvin, 12/20/2024 11:00:00 AM, [address] [facility], [address], [place], [address], Insurance Providers Payer Name Payer Address Payer Phone Subscriber Number Group Number Insured Name Patient Relationship to Insured Coverage Start Date Coverage End Date [employer] POS II [address] [place] [address] [id number] Mary Esposito Self - patient is the insured 3 Medical (General) History Medical History History ICD Code Grave's disease Thyroid ophthalmopathy Migraine
--- OUTSIDE RECORDS SUMMARY | 2024-12-07 00:40 | XMS_ITS | Clinical Summary ---
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
--- NOTE | 2024-12-07 07:07 | WPDHPUPDATE1 ---
History and Physical Update Update Date/Time: 12/07/24 07:07 History and Physical has been reviewed, including an updated exam of the patient. There are NO changes in the patient's condition. Risks, benefits, and alternatives have been discussed and questions answered. Patient agrees to proceed with procedure.
[2024-12-07] MEDS: LACTATED RINGERS 1,000 ML 30 ML IV CONT ×2 (08:12→10:25)
[2024-12-07] MEDS: KETOROLAC 15 MG/ML VIAL (*BKC) IV PUSH (08:15)
[2024-12-07] MEDS: ACETAMINOPHEN 500 MG TABLET 1000 MG PO ×3 (08:16→19:52)
--- NOTE | 2024-12-07 08:46 | WPDANESEPPF ---
Anes - Initial Pre Proc Eval Procedure: Operation Date: 12/07/24 09:30 Proposed Procedures p Robotic Assisted Total Vaginal Hysterectomy with Bilateral Salpingectomy - Etienne Husain MD Date/Time: 12/07/24 08:46 Surgeon: Etienne Husain MD Pre Op Diagnosis: Enlarge Uterus, Pelvic Pain, Endometriosis Patient Data Age: 39 Gender: F Height: 1.6 m Weight: 69 kg Last Vital Signs Temp 36.6 C 12/07/24 07:40 Pulse 72 12/07/24 07:40 Resp 14 12/07/24 07:40 BP 114/75 12/07/24 07:40 Pulse Ox 100 12/07/24 07:40 O2 Del Method Room Air 12/07/24 07:40 Allergies Allergy/AdvReac Type Severity Reaction Status Date / Time iodine Allergy Intermediate SWELLING Verified 12/07/24 07:48 shellfish derived Allergy Intermediate Swelling Verified 12/07/24 07:48 Home Medications ?Medication ?Instructions ?Recorded ?Confirmed ?Type methimazole 5 mg tablet 2.5 mg PO DAILY 10/26/23 12/07/24 History clobetasol 0.05 % topical cream See Rx Instructions .Route 10/22/24 11/27/24 Rx .COMPLEX #15 grams acetaminophen 325 mg tablet 650 mg PO Q6H PRN fever or pain 11/27/24 11/27/24 History atogepant 30 mg tablet (Qulipta) 30 mg PO DAILY PRN migraine 11/27/24 11/27/24 History headache rimegepant 75 mg disintegrating 75 mg PO DAILY PRN migraine 11/27/24 12/07/24 History tablet (Nurtec ODT) headache hydrocodone 5 mg-acetaminophen 325 1 tablet PO Q4H PRN pain #20 tabs 12/07/24 Rx mg tablet Patient hx anesthesia problems: none Family hx anesthesia problems: none Results Review: All pre-operative results and documents have been reviewed as part of the pre-operative evaluation. [facility] Past Medical History Medical History Menometrorrhagia Chronic tension-type headache, not intractable Body mass index (BMI) 23 or greater (03/31/17) Thyroid eye disease Anxiety Palpitations Chiari I malformation Elevated prolactin level Migraines Hyperthyroidism Graves disease Micromastia Goiter diffuse Pharyngitis Nasal polyp Tension headache Surgical History Surgical History H/O breast augmentation Family History Family History Father Family history of alcoholism Family history of liver disease, Onset Age: 46 Patient's father is Mother Carcinoma of colon, Onset Age: 33 Sibling Family history of malignant neoplasm of testis, Onset Age: 28 Social History Social History Social History: Smoking status: Never smoker Second hand tobacco smoke exposure: No Alcohol intake: current Alcohol use details: socially Substance use: never Substance use type: does not use Do You Feel Safe in your Home?: Yes Lack of Transportation: No Lack of Food: Never True Current Housing: I Have Housing Concerned About Future Housing: No Difficulty Paying Gas/Electric Bills: No Difficulty Paying for Meds: No Currently Unemployed: No Education: Master's Degree or Higher Difficulty w/ Childcare or Family Care: No Living arrangements: with family Occupation/Education: occupation 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 Gender identity (if verbalized by the patient): Female Sexual Orientation (if Verbalized by the Patient): Straight or Heterosexual Spiritual care concerns: No Anes - Eval Final PreProcedure Day of Procedure 12/07/24 08:46 Patient weight: normal Heart: regular rate and rhythm Lungs: clear to auscultation Airway: Mallampati scale class II Neurological: alert and oriented Last oral intake: >/= 8 hours ASA classification: II Emergent: no Anesthetic plan: proceed Anesthesia type and monitoring: general ETT and standard monitoring Results Review: All pre-operative results and documents have been reviewed as part of the pre-operative evaluation. Informed Consent: The patient's anesthetic plan and its attendant risks and benefits were discussed with the patient/family/POA. Questions were solicited and answers provided to the satisfaction of the patient/family/POA.
[2024-12-07 08:54] LABS: BEDSIDEPREGUCG Negative (Negative)
[2024-12-07] MEDS: ceFAZolin 2 GM/D5W 50 ML 2 GM/50 ML BAG IVPB (09:03)
--- NOTE | 2024-12-07 10:07 | P.OP_ITS ---
Procedure Note - Detailed Date of Procedure 12/07/24 Pre-op Diagnosis Enlarge Uterus, Pelvic Pain, Endometriosis Post-op Diagnosis Same Procedure Performed Robotic total vaginal hysterectomy bilateral salpingectomy Surgeon Etienne Husain MD Anesthesia General Indications 39-year-old female with excessive heavy bleeding uterine prolapse and a markedly enlarged uterus Findings Uterine prolapse. Enlarged fibroid uterus normal-appearing ovaries and tubes Description of Procedure Patient was prepped draped in the normal sterile fashion placed in dorsal lithotomy position. Under excellent general trach anesthesia weighted speculum placed in posterior fornix vagina. Anterior lip of the cervix grasped with a single-tooth tenaculum uterus sounded to 12cm. Serial dilatation fragmented dilators performed followed by passes 10. FLORIN and the 3. Cold cup. Next the 16 Japanese catheter was placed in the bladder. The weighted speculum and the single-tooth removed. The gloves were changed. Supraumbilical incision made the Veress needle passed in the abdomen. Abdomen filled with CO2 gas [id number]. The 8mm trocar advanced in the abdomen. Downside visualized no injury seen. Patient placed in Trendelenburg and a right left lateral quadrant incisions made. 8mm trocars advanced under direct visualization assuring no injury. A right upper quadrant incision made the 8mm trocar advanced under direct visualization assuring no injury. The robot was docked. Attention was turned to the console. Assist the right left round ligament grasped, burned, cut. Anterior bladder flap was formed by sharply dissecting the peritoneum and reflecting the bladder caudally to the opposite round ligament which was clamped, burned, cut. Next the left fallopian tube was skeletonized from the left ovary and left attached to the uterine origin. In similar fashion the right fallopian tube was dissected away from the ovary and left attached to its uterine origin. Next the left utero-ovarian ligament was skeletonized to conserve the left ovary this was clamped, burned, cut and brought to level of the previously cut round ligament. In similar fashion the right ovary was conserved by sharply dissecting the utero-ovarian ligament clamped, burned, cut brought to the level of previously cut round ligament next cardinal broad ligaments on the left were skeletonized clamping burning and cutting by hugging the cervix uterus until the very tortuous large uterine vessels were noted these were clamped, burned, cut. In similar fashion the cardinal broad ligaments on the right were serially skeletonized clamping burning cutting and hugging the cervix and uterus. This was brought brought to level of the uterine vessels. Next uterine vessels were clamped, burned, cut. At this point excellent blanching of the uterus was noted a colpotomy incision made. Cervix uterus and tubes removed through the vagina. Vagina closed with continuous running 0V lock from lateral edge to lateral edge. Hemostasis was assured and [place] term placed over the raw surface area. The robot was undocked. The gas removed from the abdomen . The incisions were then closed with 4-0 Monocryl and glue. The patient was awakened went recovery in satisfactory condition. All sponge, needle, instrument counts were correct. There were no immediate complications the Estimated Blood Loss 25 Drains No Packing No Pathology Yes (Uterus cervix and fallopian tubes) Complications No immediate complications Condition Stable Disposition PACU
--- NOTE | 2024-12-07 10:12 | PM.DS ---
DS: Admitting Diagnosis Discharge Date 12/09/2019 follow Admitting Diagnosis Uterine fibroid DS: Discharge Diagnosis Discharge Diagnosis (1) Uterine fibroid: Code(s): D25.9 - Leiomyoma of uterus, unspecified Status: Acute DS: Summary Hospital Course Reason for hospitalization: Patient was admitted on 11/29 825. She underwent robotic total vaginal hysterectomy and bilateral salpingectomy Hospital Course: Patient's hospital course unremarkable. She remained afebrile. She was up, voiding without difficulty, eating regular diet, ambulating, and generally without complaints. Time Spent with Patient Time attestation: Total time spent providing and/or coordinating discharge services: Exam Const: General: cooperative, healthy appearing and comfortable Nutritional Appearance: average body habitus Orientation/consciousness: oriented to person, oriented to place and oriented to time HENMT: Head: normal to inspection Resp: Effort & Inspection: normal respiratory effort Cardio: Rate: regular rate Rhythm: regular rhythm Heart sounds: S1 normal heart sound present and S2 normal heart sound present GI: Inspection: normal to inspection and incision (Wounds are clean dry and intact) DS: Data Data Completed and Pending Pending studies at discharge: Pending at discharge 12/07/24 10:07 Surgical [PTH] Routine Labs on day of discharge: Labs from last 24 hours 12/07/24 07:50 POC Urine HCG, Qual Negative Discharge Plan Discharge Patient Disposition: Home, Self-Care Patient Language: Sinhala Stand Alone Forms: General Discharge Instructions Follow-up/Referrals: Etienne Healy MD [Physician] - Discharge Medications: New hydrocodone-acetaminophen 5-325 mg tablet 1 tablet PO Q4H PRN (Reason: pain) Qty: 20 0RF No Action methimazole 5 mg tablet 2.5 mg PO DAILY Patient Comments: patient takes every other day for thyroid Qulipta 30 mg tablet 30 mg PO DAILY PRN (Reason: migraine headache) Nurtec ODT 75 mg tablet,disintegrating 75 mg PO DAILY PRN (Reason: migraine headache) acetaminophen 325 mg tablet 650 mg PO Q6H PRN (Reason: fever or pain) clobetasol 0.05 % cream See Rx Instructions .ROUTE .COMPLEX Qty: 15 0RF Dose Instruction: APPLY TOPICALLY TO THE AFFECTED AREA EVERY DAY AT BEDTIME Rx Instructions: APPLY TOPICALLY TO THE AFFECTED AREA EVERY DAY AT BEDTIME
[2024-12-07] MEDS: fentaNYL CITRATE INJ (*CRX) 100 MCG/2 ML VIAL 25 MCG IV PUSH ×4 (10:39→11:50)
[2024-12-07] MEDS: SCOPOLAMINE 1 MG PATCH 1 PATCH TRANSDERM (10:39)
--- NOTE | 2024-12-07 12:37 | PC.NURSE ---
This patient, Mary Esposito, was received from PACU via stretcher on 12/07/24 at 1209. Patient/family oriented to unit policies and routines.
[2024-12-07] MEDS: DEXTROSE 5%/LACTATED RINGERS 1,000 ML 125 ML IV CONT (12:59)
[2024-12-07] MEDS: SIMETHICONE 80 MG TAB.CHEW PO ×2 (13:00→16:52)
[2024-12-07] MEDS: oxyCODONE HCL (*CRX) 5 MG TAB IR PO ×2 (13:00→18:25)
[2024-12-07] MEDS: KETOROLAC 30 MG/ML VIAL (*BKC) IV PUSH ×2 (14:20→19:52)
[2024-12-07] MEDS: DOCUSATE SODIUM 100 MG CAPSULE PO (16:52)
[2024-12-08 00:30] VITALS: BP 86/51; PULSE 81; RESP 18; TEMP 37.5; O2SAT 97
[2024-12-08] MEDS: ACETAMINOPHEN 500 MG TABLET 1000 MG PO ×2 (01:52→07:33)
[2024-12-08] MEDS: KETOROLAC 30 MG/ML VIAL (*BKC) IV PUSH (01:53)
[2024-12-08 04:15] VITALS: BP 82/45; PULSE 65; RESP 18; TEMP 36.8; O2SAT 99
[2024-12-08 05:45] LABS: Basophils Percent Auto 0.3 % (0.2-1.2); Hematocrit 28.6 % (37.0-47.0); Hemoglobin 9.4 g/dL (12.0-15.0); Immature Granulocyte Absolute 0.03 K/mm3 (0.00-0.031); Immature Granulocyte Percent A 0.3 % (0-0.5); Lymphocytes Absolute Auto 1.67 K/mm3 (0.9-3.2); Lymphocytes Percent Auto 16.5 % (18.3-44.2); Mean Corpuscular HGB Conc 32.9 g/dl (32-36); Mean Corpuscular Hemoglobin 31.4 pg (26-34); Mean Corpuscular Volume 95.7 fl (80-100); Mean Platelet Volume 9.8 fl (7.4-10.4); Monocytes Absolute Auto 0.8 K/mm3 (0.1-0.6); Monocytes Percent Auto 8.1 % (2.6-8.5); Neutrophils Absolute Auto 7.6 K/mm3 (1.3-6.7); Neutrophils Percent Auto 74.8 % (45.5-73.1); Platelet Count Result 201 k/mm3 (150-375); Red Blood Count 2.99 M/mm3 (4.2-5.4); Red Cell Distribution Width 12.5 % (11.5-14.5); White Blood Count 10.1 K/mm3 (4.5-10.0)
[2024-12-08] MEDS: ENOXAPARIN 40 MG/0.4 ML SYRINGE SUB-Q (07:31)
[2024-12-08] MEDS: DOCUSATE SODIUM 100 MG CAPSULE PO (07:33)
[2024-12-08] MEDS: IBUPROFEN 600 MG TABLET PO (07:33)
[2024-12-08] MEDS: oxyCODONE HCL (*CRX) 5 MG TAB IR PO (07:33)
[2024-12-08] MEDS: SIMETHICONE 80 MG TAB.CHEW PO (07:33)
[2024-12-08 08:00] VITALS: BP 97/57; PULSE 67; RESP 18; TEMP 36.5; O2SAT 99
--- NOTE | 2024-12-08 09:41 | P.PNOB_ITS ---
[employer] - A/P Assessment and plan (1) Uterine fibroid: Code(s): D25.9 - Leiomyoma of uterus, unspecified Status: Acute Assessment and Plan: A: POD#1, s/p robotic assisted TVHBS, doing well. P: Home to f/u 2 weeks. Postoperative Procedures: Procedures Operation Date: 12/07/24 09:30 Actual Procedure Side Surgeon p Robotic Assisted Total Vaginal Hysterectomy with Bilateral Salpingectomy Bilateral Etienne Husain MD Time Spent With Patient Time with patient: less than 15 minutes [employer]- PN:Subj Post-Op Subjective Date/time seen: 12/08/24 09:41 Interval history: Pain OK. Tolerating diet. Voiding. Would like to go home. Exam 2 Narrative: AVSS I/O OK ABD soft, nontender. Incisions c/d/i. EXT nontender [employer] - PN: Obj Data Vital Signs Vital Signs: Vital Signs - 24 hr 12/07/24 10:25 12/07/24 10:40 12/07/24 10:55 Temperature 36.5 C Pulse Rate 66 72 68 Respiratory Rate 11 L 10 L 10 L Blood Pressure 125/84 110/70 109/72 Pulse Oximetry 100 95 95 Oxygen Delivery Simple Face Mask Simple Face Mask Simple Face Mask Oxygen Flow Rate 8 8 8 12/07/24 11:10 12/07/24 11:25 12/07/24 11:40 Temperature 36.3 C L Pulse Rate 72 68 62 Respiratory Rate 10 L 12 11 L Blood Pressure 113/76 111/69 113/76 Pulse Oximetry 97 97 100 Oxygen Delivery Nasal Cannula Nasal Cannula Nasal Cannula Oxygen Flow Rate 2 2 2 12/07/24 11:55 12/07/24 12:14 12/07/24 12:15 Temperature 36.3 C L Pulse Rate 62 61 Respiratory Rate 11 L 12 Blood Pressure 112/68 100/69 Pulse Oximetry 100 100 100 Oxygen Delivery Nasal Cannula Nasal Cannula Oxygen Flow Rate 2 2 12/07/24 14:24 12/07/24 16:50 12/07/24 16:50 Temperature 37.1 C Pulse Rate 69 Respiratory Rate 20 Blood Pressure 106/57 L Pulse Oximetry 96 95 Oxygen Delivery Room Air Room Air Oxygen Flow Rate 12/07/24 19:50 12/08/24 00:30 12/08/24 04:15 Temperature 37.4 C 37.5 C 36.8 C Pulse Rate 79 81 65 Respiratory Rate 18 18 18 Blood Pressure 97/54 L 86/51 L 82/45 L Pulse Oximetry 98 97 99 Oxygen Delivery Oxygen Flow Rate 12/08/24 08:00 12/08/24 08:00 Temperature 36.5 C Pulse Rate 67 Respiratory Rate 18 Blood Pressure 97/57 L Pulse Oximetry 99 Oxygen Delivery Room Air Oxygen Flow Rate Intake/Output Intake/Output: Intake & Output 12/05/24 12/06/24 12/07/24 12/08/24 23:59 23:59 23:59 23:59 Intake Total 1450 600 Output Total 1150 650 Balance 300 -50 Meds/Results Medications: Active Medications Generic Name Dose Route Start Last Admin Trade Name Freq PRN Reason Stop Dose Admin Acetaminophen 1,000 mg 12/07/24 12:00 12/08/24 07:33 Acetaminophen 500 Mg Tablet PO 1,000 mg Q6HR NICOLE Administration Docusate Sodium 100 mg 12/07/24 17:00 12/08/24 07:33 Docusate Sodium 100 Mg Capsule PO 100 mg BID NICOLE Administration Enoxaparin Sodium 40 mg 12/08/24 09:00 12/08/24 07:31 Enoxaparin 40 Mg/0.4 Ml Syringe SUB-Q 40 mg DAILY NICOLE Administration Ibuprofen 600 mg 12/08/24 06:00 12/08/24 07:33 Ibuprofen 600 Mg Tablet PO 600 mg Q6HR NICOLE Administration Naloxone HCl 0.1 mg 12/07/24 12:00 Naloxone Hcl 0.4 Mg/Ml Vial IV PUSH Q2M PRN Respiratory rate less than 10 Ondansetron HCl 4 mg 12/07/24 12:00 Ondansetron Inj 4 Mg/2 Ml Vial IV PUSH Q6H PRN Nausea And Vomiting Oxycodone HCl 5 mg 12/07/24 12:00 12/08/24 07:33 Oxycodone Hcl (*Crx) 5 Mg Tab Ir PO 5 mg Q4H PRN Administration Pain Rated 4-6 Oxycodone HCl 10 mg 12/07/24 12:00 Oxycodone Hcl (*Crx) 5 Mg Tab Ir PO Q6H PRN Pain Rated 7-10 Simethicone 80 mg 12/07/24 12:00 12/08/24 07:33 Simethicone 80 Mg Tab.Chew PO 80 mg TIDWM NICOLE Administration Labs 12/08/24 05:37 Labs: Laboratory Results - last 24 hr 12/08/24 05:37 WBC 10.1 H RBC 2.99 L Hgb 9.4 L Hct 28.6 L MCV 95.7 MCH 31.4 MCHC 32.9 RDW 12.5 Plt Count 201 MPV 9.8 Immature Gran % (Auto) 0.3 Neut % (Auto) 74.8 H Lymph % (Auto) 16.5 L Todd % (Auto) 8.1 Eos % (Auto) 0.0 Baso % (Auto) 0.3 Lymph # (Auto) 1.67 Todd # (Auto) 0.8 H Eos # (Auto) 0.0 Baso # (Auto) 0.0 Abs Immat Gran (auto) 0.03 Absolute Neuts (auto) 7.6 H Absolute Nucleated RBC 0.000 Nucleated RBC % 0.0
== END 2024-12-08 10:47 | disposition home or self-care (01) ==
LOC: ANHSURGERY 07:31 → ANHOB2 12:04
PROVIDERS: PCP Family Medicine; Visit Provider Obstetrics & Gynecology
PROC: (CPT 58552; principal; 2024-12-07 09:30)
DX: D25.1 Intramural leiomyoma of uterus (principal); N80.00 Endometriosis of the uterus, unspecified; N81.4 Uterovaginal prolapse, unspecified; G44.229 Chronic tension-type headache, not intractable; F41.9 Anxiety disorder, unspecified; R00.2 Palpitations; G93.5 Compression of brain; E05.00 Thyrotoxicosis with diffuse goiter without thyrotoxic crisis or storm; J33.9 Nasal polyp, unspecified; Z79.891 Long term (current) use of opiate analgesic; Z98.890 Other specified postprocedural states; Z87.09 Personal history of other diseases of the respiratory system; Z80.43 Family history of malignant neoplasm of testis; Z80.0 Family history of malignant neoplasm of digestive organs
CPT/HCPCS: 58552; S2900; 36415; 85025; 88307; 99199; A4248; A9270; J0690; J1100; J1171; J1650; J1885; J2003; J2250; J2405; J2704; J3010; J7030; J7120; J7121

== ENCOUNTER 2025-06-05 09:01 | Outpatient (CLI) | payer OTHER, SELFPAY ==
--- OUTSIDE RECORDS SUMMARY | 2025-06-05 09:37 | XMS_ITS | Patient Health Record ---
Author Organization [facility] [place] ([address]) Address [address] [place] [address] Care Team Providers Care Education Administrator Name Role Phone Dr. Alena Kessler Primary Care Provider Un available Dr. Bradford Schaffer Unavailable [phone] Sherry Diego Unavailable [phone] Allergies No Known Allergies Reason For Referral No Information Medications Medication SIG (Take, Route, Frequency, Duration) Notes Start Date End Date Status methIMAzole 5 MG 1 tablet Orally Once a day Active Nurtec 75 MG 1 tablet Orally once daily As needed for migraine 09/27/2024 Active Rizatriptan Benzoate 10 MG 1 tablet Orally twice daily As needed Active Social History Sex Assigned At : Social History Observation Description Sex Assigned At Female Section Notes: Non-smoker Non-smoker Non-smoker Non-smoker Non-smoker Non-smoker Problems Problem Type SNOMED Code ICD Code Onset Dates Problem Status W/U Status Risk Notes Problem Chronic migraine without aura, non-refractor y (disorder) (280199464295 100) Migraine without aura, not intractable, without status migrainosus (G43.009) Active confirmed Problem Migraine with aura (0928525) Migraine with aura, not intractable, without status migrainosus (G43.109) Active confirmed Problem Chronic migraine without aura, non-intractab le (165424554830 100) Chronic migraine without aura, not intractable, without status migrainosus (G43.709) Active confirmed Problem Muscle pain (70870590) Myalgia, unspecified site (M79.10) Active confirmed Encounters Encounter Location Date Provider Diagnosis [address] [address] 03/14/2025 Sherry Diego Chronic migraine without aura, not intractable, without status migrainosus G43.[address] [address] 12/20/2024 Sherry Diego Chronic migraine without aura, not intractable, without status migrainosus G43.[address] [address] 09/27/2024 Sherry Diego Chronic migraine without aura, not intractable, without status migrainosus G43.[address] [address] 07/05/2024 Sherry Diego Chronic migraine without aura, not intractable, without status migrainosus G43.[address] [address] 10/02/2024 Bradford Schaffer Assessments Encounter Date Diagnosis (ICD Code) Assessment [...] daily as supplements; keep scheduled follow-up appointments 12/20/2024 Chronic migraine without aura, not intractable, without status migrainosus (ICD-10 - G43.709) -Abortive treatment plan: Continue Nurtec. Continue rizatriptan.-Pre ventive treatment plan: Continue Botox. -Educated the patient [...] daily as supplements; keep scheduled follow-up appointments 03/14/2025 Chronic migraine without aura, not intractable, without status migrainosus (ICD-10 - G43.709) Plan Of Treatment No Information Insurance Providers Payer Name Payer Address Payer Phone Subscriber Number Group Number Insured Name Patient Relationship to Insured Coverage Start Date Coverage End Date A[employer] Choice POS II [address] [place] [address] [id number] Mary Esposito Self - patient is the insured 3 Medical (General) History Medical History History ICD Code Grave's disease Thyroid ophthalmopathy Migraine
--- OUTSIDE RECORDS SUMMARY | 2025-06-05 09:37 | XMS_ITS | Clinical Summary ---
Author Organization [facility] Address [address] [facility] [place] [address] Care Team Providers Care Pediatric Cns Name Role Phone Alena Verma MD Primary Care Provider + Source Comments [facility],non-owned Affiliates and Associated Physician Practices is amultiple site organization consisting of ambulatory clinics and hospital sitesin [place], [place], [place] and [place]. This disclosure is being madepursuant to the Care Everywhere program and may not contain all information available regarding this patient. Last updated 18.[facility] Active Problems Problem Noted Date Diagnosed Date Choroid plexus cysts, , affecting care of mother, antepartum 03/23/2013 Social History Tobacco Use Types Packs/Day Years Used Date Smoking Tobacco: Never Alcohol Use Standard Drinks/Week Comments No 0 (1 standard drink = 0.6 oz pur e alcohol) Comments No Sex and Gender Information Value Date Recorded Sex Assigned at Not on file Legal Sex Female 11:48 AM CDT Gender Identity Not on file Sexual Orientation Not on file Plan of Treatment Health Maintenance Due Date Last Done Comments HIV SCREENING 2000 HEPATITIS C SCREENING 09/27/2003 DTAP/TDAP/TD VACCINES (1 - Tdap) 2004 HEPATITIS B VACCINE (1 of 3 - 19+ 3-dose series) 2004 PAP SMEAR 2006 HPV VACCINE (1 - 3-dose SCDM series) 2012 DEPRESSION SCREENING 09/12/2024 COVID-19 VACCINE (2023-2 5 season) 2025 INFLUENZA VACCINE (#1) 2025 ZOSTER VACCINE (1 of 2) 2035 HIB [...] patient's age to complete this topic Insurance [employer] [facility] SELF PAY NO INSURANCE Member Subscriber Plan / Payer (Ef fective for All Dates) Name:Mary Keyes Member ID:Not on file Relation to Subscriber:Not on file Name:STEPHYMARY Subscriber ID:Not on file (Home) Address: [address] [place] [id number] Payer ID:Not on file Group ID:Not on file Type:Self Pay Address: [place], [place] Care Teams Pediatric Cns Relationship Specialty Start Date End Date Alena Verma MD [address] [place] [address] PCP - General 07/17/18
--- OUTSIDE RECORDS SUMMARY | 2025-06-05 09:37 | XMS_ITS | Clinical Summary ---
Author Organization [facility] [address] Address [address] [place] [address] Care Team Providers Care Silver Chaser Name Role Phone Alena Verma MD Primary Care Provider Allergies Active Allergy Reactions Criticality Noted Date Comments Shellfish Containing Products Medications methIMAzole (TAPAZOLE) 5 mg tablet 1 tablet (5 mg total) Pt reports she is taking 2.5mg PO 3 Active triamcinolone (KENALOG) 0.1 % cream Apply topically 2 (two) times a day to affected areas on arms 120 g 3 5 Active azelaic acid (Azelex) 20 % cream To face qhs 7 05/14/20 25 Discontinu ed(Therapy completed) butalbitaL-acet [id number] mg capsule TAKE 1 CAPSULE BY MOUTH EVERY 8 HOURS NEEDED FOR PAIN 1 05/14/20 25 Discontinu ed(Therapy completed) carisoprodoL (SOMA) 350 mg tablet TAKE 1 TABLET BY MOUTH THREE TIMES DAILY NEEDED FOR MUSCLE PAIN 1 05/14/20 25 Discontinu ed(Therapy completed) docusate sodium (COLACE) 100 mg capsule Take 100 mg by mouth daily 1 05/14/20 25 Discontinu ed(Therapy completed) hydrOXYzine (ATARAX) 25 mg tablet TAKE 1 TABLET BY MOUTH THREE TIMES DAILY NEEDED FOR ITCHING 1 05/14/20 25 Discontinu ed(Therapy completed) methIMAzole (TAPAZOLE) 10 mg tablet Take 0.5 tablets (5 mg total) by mouth daily 05/14/20 Discontinu ed(Therapy completed) ondansetron (ZOFRAN) 4 mg tablet Take 4 mg by mouth every 8 (eight) hours 05/14/20 Discontinu ed(Therapy completed) oxyCODONE-aceta minophen (PERCOCET) 5-325 mg per tablet Take by mouth every 6 (six) hours as needed 05/14/20 25 Discontinu ed(Therapy completed) sulfacetamide sodium, acne, 10 % suspension APPLY SPARINGLY TO FACE TWICE DAILY. 7 05/14/20 Discontinu ed(Therapy completed) Active Problems Problem Noted Date Diagnosed Date Acne vulgaris 03/03/2017 Encounters Date Type Department Care Team Description 05/14/2025 9:59 AM CDT - 05/14/2025 11:59 PM CDT Hospital Encounter [address] [address] Urinary urgency Discharge Disposition: Discharge to home or self care 05/14/2025 8:00 AM CDT Office Visit Health system Medicine Obstetrics and Gynecology [address] [facility] [address] [place] [address] Sepideh Yin MD CHELSEY (stress urinary incontinence, female) (Primary Dx); Bilateral myofascial pain; Pelvic floor dysfunction; Constipation, unspecified constipation type; Mixed incontinence; Urinary urgency 03/06/2025 Orders Only Health system Medicine Dermatology [address] [place] [address] [address] [place] [id number] Jorgito Helton MA 03/05/2025 Telephone Health system Medicine Dermatology [address] [place] [address] [address] [place] [address] Cecilia Joaquin [facility] Dispensing pharmacy from Last 3 Months Medical History Medical History Date Comments Thyroid disease Family History Medical History Relation Name Comments Glaucoma Neg Hx Macular degeneration Neg Hx Thyroid disease Neg Hx Social History Tobacco Use Types Packs/Day Years Used Date Smoking Tobacco: Never AUDIT-C Answer Date Recorded Q1: How often do you have a drink containing alc ohol? 2-4 times a month 05/25/2023 Q2: How many drinks containi ng alcohol do you have on a typical day when you are drinking? 3 or 4 05/25/2023 Q3: How often do you have si x or more drinks on one occasion? 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 Gender Identity Not on file Sexual Orientation Not on file Obstetrics History Para Term AB IAB SAB Ectopic Multiple Livin g Live Births 1 Date Outcome GA Total Labor Labor/2nd/3rd Weight Sex Type Anes PTL Lulu A1 A5 Name Clin Last Filed Vital Signs Vital Sign Reading Time Taken Comments Blood Pressure 116/79 05/14/2025 8:49 AM CDT Pulse - - Temperature - - Respiratory Rate - - Oxygen Saturation - - Inhaled Oxygen Concentration - - Weight 67.1 kg (148 lb) 05/14/2025 8:49 AM CDT Height 160 cm (5' 3) 05/14/2025 8:49 AM CDT Body Mass Index 26.22 05/14/2025 8:49 AM CDT Plan of Treatment Health Maintenance Due Date Last Done Comments Depression Screening 1985 Hepatitis C Screening 1985 DTaP/Tdap/Td Vaccine (1 - Tdap) 1996 Varicella Vaccines (1 of 2 - 13+ 2-dose series) 1998 Hepatitis B Screening 2003 Regular Well Visit/Exam 18-64 2003 HPV Vaccines (1 - 3-dose SCD M series) 2012 Covid-19 Vaccine ( - 2024-2 6 season) 2025 06/16/2021, 05/26/2021 Influenza Vaccine (#1) 2025 Pneumococcal vaccine <65 Aged Out No longer eligible based on patient's age to complete this topic Procedures Procedure Name Priority Date/Time Associated Diagnosis Comments URINE CULTURE Routine 05/14/2025 12:52 PM CDT Urinary urgency URINALYSIS, MICROSCOPIC ONLY Routine 05/14/2025 9:59 AM CDT Urinary urgency URINALYSIS AND REFLEX TO MICROSCOPIC Routine 05/14/2025 9:59 AM CDT Urinary urgency POCT URINALYSIS DIPSTICK Routine 05/14/2025 9:26 AM CDT CHELSEY (stress urinary incontinence, female) from Last 3 Months Results * Urine culture Urine, in and out catheter (05/14/2025 12:52 PM CDT) Report Final Report: No growth Urine, in and out catheter 05/14/2025 12:52 PM CDT 05/14/2025 1:11 PM CDT Narrative [facility] - 05/15/2025 2:12 PM CDT Testing performed by [facility] ([phone]) us Sepideh Yin MD LAB MICROBIOLOGY - GENERAL ORDERABLES Final Result [facility] Department [place] [address] * (ABNORMAL) Urinalysis reflex to microscopic (05/14/2025 9:59 AM CDT) Color, ur Yellow Yellow Clarity, ur Clear Clear [facility] Specific gravity, ur 1.030 1.003 - 1.030 [facility] pH, urine 6.0 [facility] Comment: Interpretive Data U rine pH is affected by diet, medications, systemic acid-base disturbances, and renal tubular function. pH may affect urinary stone formation. For example, urine pH below 6.0 may help reduce the tendency for calcium phosphate stones and pH greater than 6.0 may reduce the tendency for uric acid stone formation. Source: [place] [facility] Current Interpretive Data was last revised on 2017 Protein, ur ql Trace Negative [facility] Glucose, ur ql Negative Negative [facility] Ketones, ur Negative Negative [facility] Bilirubin, ur Negative Negative [facility] Blood, ur 2+(A) Negative [facility] Urobilinogen, ur <2.0 <2.0 mg/dL [facility] Nitrite, ur Negative Negative [facility] Leukocyte esterase, ur Negative Negative [facility] UA reflex comment Reflex to microscopic UA will be performed. [facility] Urine 05/14/2025 9:59 AM CDT 05/14/2025 12:54 PM CDT Sepideh Yin MD LAB URINE ORDERAB LES Final Result Performing Organization Address [facility] de Phone Number [facility] [place] [address] * (ABNORMAL) Urinalysis, microscopic only (05/14/2025 9:59 AM CDT) WBC, ur 0-5 0 - 5 /HPF RBC, ur 6-10(A) 0 - 2 /HPF [facility] Epithelial cells, squamous, ur 1-5 0 - 5 /HPF [facility] Bacteria, ur Trace(A) [facility] Mucous, ur Present(A) [facility] Urine 05/14/2025 9:59 AM CDT 05/14/2025 12:54 PM CDT Sepideh Yin MD LAB URINE ORDERAB LES Final Result Performing Organization Address [facility] de Phone Number [facility] [place] [address] * (ABNORMAL) POCT urinalysis dipstick (05/14/2025 9:26 AM CDT) Color, Urine, POC [facility] Comment:35mL Clarity, ur, POC Clear Clear Glucose, ur, POC Negative Negative Bilirubin, ur, POC Negative Negative Ketones, ur, POC Negative Negative Specific [place], POC 1.030 1.003 - 1.030 Blood, ur, POC Large(A) Negative pH, ur, POC 6.0 5.0 - 8.0 Protein, ur, POC Negative Negative Urobilinogen, urine, POC 0.2 0.2 - 1.0 mg/dL Nitrite, ur, POC Negative Negative Leukocytes, ur, POC Negative Negative Lot Number [id number] Urine 05/14/2025 9:26 AM CDT Sepideh Yin MD POINT OF CARE CHRIS T ORDERABLES Final Result from Last 3 Months Insurance [facility] Care Teams Silver Chaser Relationship Specialty Start Date End Date Alena Verma MD [address] [facility] [address] [place], [place] [id number] PCP - General Family Medicine 07/29/21
[2025-06-05 19:20] LABS: Alanine Aminotransferase 17 U/L (6-35); Albumin Level 4.4 g/dL (3.5-5.1); Alkaline Phosphatase 65 U/L (38-126); Anion Gap 8 mmol/L (4-12); Aspartate Amino Transferase 35 U/L (14-36); Bilirubin,Total 0.5 mg/dL (0.2-1.3); Blood Urea Nitrogen 8 mg/dL (7-17); Calcium 9.2 mg/dL (8.4-10.2); Carbon Dioxide 22 mmol/L (22-30); Chloride 105 mmol/L (98-107); Cholesterol 175 mg/dL (0-200); Estimated Glomerular Filt Rate > 60; Glucose 90 mg/dL (65-110); HDL Direct 100 mg/dL; Potassium 3.6 mmol/L (3.4-5.0); Sodium 135 mmol/L (137-145); Total Protein 8.0 g/dL (6.3-8.2); Triglycerides 55 mg/dL (<150)
[2025-06-05 19:35] LABS: Hematocrit 33.5 % (37.0-47.0); Hemoglobin 10.8 g/dL (12.0-15.0); Mean Corpuscular HGB Conc 32.2 g/dl (32-36); Mean Corpuscular Hemoglobin 31.4 pg (26-34); Mean Corpuscular Volume 97.4 fl (80-100); Platelet Count Result 248 k/mm3 (150-375); Red Blood Count 3.44 M/mm3 (4.2-5.4); White Blood Count 3.9 K/mm3 (4.5-10.0)
== END 2025-06-05 09:02 | disposition home or self-care (01) ==
LOC: ANHGOSHLAB 09:01
PROVIDERS: PCP Family Medicine; Visit Provider Physician Assistant Medical
DX: Z00.00 Encounter for general adult medical examination without abnormal findings (principal); R53.83 Other fatigue
CPT/HCPCS: 36415; 80053; 80061; 85027

== ENCOUNTER 2025-08-21 14:48 | Outpatient (CLI) | payer OTHER, SELFPAY ==
--- OUTSIDE RECORDS SUMMARY | 2025-06-06 11:30 | XMS_ITS ---
Author Organization [facility] [place] ([address]) Address [address] [place] [address] Care Team Providers Care Hay Stacker Operator Name Role Phone Dr. Alena Kessler Primary Care Provider Un available Dr. Bradford Schaffer Unavailable [phone] Sherry Diego [phone] REASON FOR VISIT Botox BB Only Social History Sex Assigned At : Social History Observation Description Sex Assigned At Female Encounters Encounter Location Date Provider Diagnosis [facility] [address] [place] [address] 06/06/2025 Sherry Diego Plan Of Treatment No Information Progress Notes * Ayo ESPOSITOB: 6 (39 yo F)Acc No.[id number]:06/06/2025 Progress Notes Patient: Nicky LOVEmaki Provider: Aster Diego APRN :1985 A ge:39 Y S ex:Female Date:06/06/2025 Address:[address] [place], [place] [id number] Pcp:Dr. Alena Kessler Subjective: * Chief Complaints: * 1 . Botox BB Only. * Medical History: Objective: * Vitals: Assessment: Plan: * Treatment: * Billing Information: * Visit Code: * Procedure Codes: * Electronic signature of CHUCHO Rosales on 08/21/2025 at 07:43 PM WATER RESOURCES ENGINEER Sign off status: Pending * Provider: Aster Diego APRN Date: 0 06/06/2025 Generated for Munir Kuo/Joan on: 1 10/22/2024 07:43 PM WATER RESOURCES ENGINEER
[2025-08-21 19:07] LABS: Hematocrit 33.8 % (37.0-47.0); Hemoglobin 11.1 g/dL (12.0-15.0); Immature Granulocyte Percent A 0.2 % (0-0.5); Lymphocytes Absolute Auto 2.14 K/mm3 (0.9-3.2); Mean Corpuscular HGB Conc 32.8 g/dl (32-36); Mean Corpuscular Hemoglobin 31.4 pg (26-34); Mean Corpuscular Volume 95.5 fl (80-100); Nucleated Red Blood Cells Absolute Auto 0.030 K/mm3 (0.0-0.012); Nucleated Red Blood Cells Perc 0.6 % (0.0-0.2); Platelet Count Result 249 k/mm3 (150-375); Red Blood Count 3.54 M/mm3 (4.2-5.4); White Blood Count 4.7 K/mm3 (4.5-10.0)
[2025-08-21 19:34] LABS: Iron 104 ug/dL (37-170)
[2025-08-21 19:43] LABS: Percent Iron Saturation 35 % (20-50)
--- OUTSIDE RECORDS SUMMARY | 2025-08-21 19:43 | XMS_ITS | Clinical Summary ---
Author Organization [facility] Address [address] [place] [address] Care Team Providers Care Mate Chief Name Role Phone Alena Verma MD Primary Care Provider + Source Comments [facility],non-owned Affiliates and Associated Physician Practices is amultiple site organization consisting of ambulatory clinics and hospital sitesin [place], [place], [place] and [place]. This disclosure is being madepursuant to the Care Everywhere program and may not contain all information available regarding this patient. Last updated 18.[facility] Active Problems Problem Noted Date Diagnosed [...] series) 2012 DEPRESSION SCREENING 09/12/2024 COVID-19 VACCINE (2024-2 6 season) 2025 INFLUENZA VACCINE (#1) 2025 ZOSTER [...] age to complete this topic Insurance [employer] [facility] SELF PAY NO INSURANCE Member Subscriber Plan / Payer (Ef fective for All Dates) Name:Mary Keyes Member ID:Not on file Relation to Subscriber:Not on file Name:STEPHYMARY Subscriber ID:Not on file (Home) Address: [address] [place] [phone] Payer ID:Not on file Group ID:Not on file Type:Self Pay Address: [place], [place] Care Teams Mate Chief Relationship Specialty Start Date End Date Alena Verma MD [address] [place] [address] PCP - General 07/17/18
--- OUTSIDE RECORDS SUMMARY | 2025-08-21 19:43 | XMS_ITS | Patient Health Record ---
Author Organization [facility] [employer] [facility] [place] ([address]) Address [address] [place] [address] Care Team Providers Care Burr Mill Operator Name Role Phone Dr. Alena Kessler Primary Care Provider Un available Dr. Bradford Schaffer Unavailable [phone] Sherry Diego Unavailable [phone] Allergies No Known Allergies Reason For Referral [...] Chronic migraine without aura, non-refractor y (disorder) (647869728359 100) Migraine without aura, not intractable, without status migrainosus (G43.009) Active confirmed Problem Migraine with aura (9128032) Migraine with aura, not intractable, without status migrainosus (G43.109) Active confirmed Problem Chronic migraine without aura, non-intractab le (166408496904 100) Chronic migraine without aura, not intractable, without status migrainosus (G43.709) Active confirmed Problem Muscle pain (27611446) Myalgia, unspecified site (M79.10) Active confirmed Encounters Encounter Location Date Provider Diagnosis [facility] [address] [place] [phone] 03/14/2025 Sherry Diego Chronic migraine without aura, not intractable, without status migrainosus G43.[address] [address] 12/20/2024 Sherry Diego Chronic migraine without aura, not intractable, without status migrainosus G43.[address] [address] 09/27/2024 Sherry Diego Chronic migraine without aura, not intractable, without status migrainosus G43.[address] [address] 10/02/2024 Bradford Schaffer Assessments Encounter Date Diagnosis [...] Date [employer] [address] [place] [address] [id number] Mary Esposito Self - patient is the insured 3 Medical (General) History Medical History History ICD Code Grave's disease Thyroid ophthalmopathy Migraine
--- OUTSIDE RECORDS SUMMARY | 2025-08-21 19:43 | XMS_ITS | Clinical Summary ---
Author Organization [facility] [address] Address [address] [place] [address] Care Team Providers Care Clinical Staff Anesthesiologist Name Role Phone Alena Verma MD Primary Care Provider Allergies Active Allergy Reactions Criticality Noted Date Comments Iodine Swelling High 12/07/2024 Shellfish Containing Products Medications methIMAzole (TAPAZOLE) 5 mg tablet 1 tablet (5 mg total) Pt reports she is taking 2.5mg PO 3 Active triamcinolone (KENALOG) 0.1 % cream Apply topically 2 (two) times a day to affected areas on arms 120 g 3 5 Active Active Problems Problem Noted Date Diagnosed Date Acne vulgaris 03/03/2017 Encounters Date Type Department Care Team Description 06/25/2025 3:30 PM CDT Office Visit [facility] Medicine Obstetrics and Gynecology [address] [place] [address] Floor [address] [place] [phone] Sepideh Yin MD Bilateral myofascial pain (Primary Dx); Pelvic floor dysfunction 06/25/2025 2:00 PM CDT Office Visit [facility] Medicine Obstetrics and Gynecology [address] [place] [address] Floor [address] [place] [phone] CHELSEY (stress urinary incontinence, female); Mixed incontinence; Urinary urgency from Last 3 Months Medical History Medical [...] on file 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 Gender Identity Not on file Sexual Orientation Not on file Obstetrics History Para Term AB IAB SAB Ectopic Multiple Livin g Live Births 1 Date Outcome GA Total Labor Labor/2nd/3rd Weight Sex Type Anes PTL Lulu A1 A5 Name Clin Last Filed Vital Signs Vital Sign Reading Time Taken Comments Blood Pressure 109/73 06/25/2025 2:48 PM CDT Pulse - - Temperature - - Respiratory Rate - - Oxygen Saturation - - Inhaled Oxygen Concentration - - Weight 67.1 kg (148 lb) 06/25/2025 2:08 PM CDT Height 160 cm (5' 3) 05/14/2025 [...] 3-dose SCD M series) 2012 Covid-19 Vaccine (2024-2 6 season) 2025 06/16/2021, 05/26/2021 Influenza Vaccine (#1) 2025 Pneumococcal vaccine <65 Aged Out No longer eligible based on patient's age to complete this topic Procedures Procedure Name Priority Date/Time Associated Diagnosis Comments URODYNAMICS 06/25/2025 2:49 PM CDT POCT URINALYSIS DIPSTICK Routine 06/25/2025 2:39 PM CDT CHELSEY (stress urinary incontinence, female) Mixed incontinence Urinary urgency from Last 3 Months Results * Urodynamics (06/25/2025 2:49 PM CDT) Sepideh Yin MD PROCEDURE MAYLIN SHAY Final Result * (ABNORMAL) POCT urinalysis dipstick (06/25/2025 2:39 PM CDT) Color, Urine, POC Yellow Clarity, ur, POC Clear Clear Glucose, ur, POC Negative Negative Bilirubin, ur, POC Negative Negative Ketones, ur, POC Negative Negative Specific [place], POC 1.020 1.003 - 1.030 Blood, ur, POC Trace(A) Negative pH, ur, POC 5.0 5.0 - 8.0 Protein, ur, POC Negative Negative Urobilinogen, urine, POC 0.2 0.2 - 1.0 mg/dL Nitrite, ur, POC Negative Negative Leukocytes, ur, POC Negative Negative Lot Number [id number] Urine 06/25/2025 2:39 PM CDT Result [facility] Sepideh Yin MD POINT OF CARE CHRIS T ORDERABLES Final Result from Last 3 Months Insurance [facility] Care Teams Clinical Staff Anesthesiologist Relationship Specialty Start Date End Date Alena Verma MD [address] [place] [address] PCP - General Family Medicine 07/29/21
[2025-08-21 20:10] LABS: Ferritin 57.50 ng/mL (6.24-137)
== END 2025-08-21 14:49 | disposition home or self-care (01) ==
LOC: ANHGOSHLAB 14:48
PROVIDERS: PCP Physician Assistant Medical; Visit Provider Physician Assistant Medical
DX: D64.9 Anemia, unspecified (principal); D72.819 Decreased white blood cell count, unspecified
CPT/HCPCS: 36415; 82728; 83540; 83550; 85025